=== PATIENT | male | born 1950 | race Caucasian/White ===

== ENCOUNTER 2016-08-08 16:40 | Inpatient (IN) | payer MEDICARE ==
--- NOTE | 2016-08-08 17:02 | ED ---
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 Sousa admitted to be consulted for his other complaints which is mostly pain management according to the patient. He denies any fever no chills no pleuritic chest pain. - Related Data Home Medications Medication Instructions Recorded Confirmed HYDROcodone/APAP 10-325MG [[place] 1 tab PO BID 04/23/15 08/08/16 10-325] Morphine Sulfate [Ms Contin] 60 mg PO BID 08/08/16 08/08/16 Allergies Allergy/AdvReac Type Severity Reaction Status Date / Time No Known Allergies Allergy Verified 08/08/16 17:08 Review of Systems ROS Statement: Those systems with pertinent positive or pertinent negative responses have been documented in the HPI. ROS Other: All systems not noted in ROS Statement are negative. Past Medical History Past Medical History: Coronary Artery Disease (CAD), Hyperlipidemia, Hypertension, Myocardial Infarction ([place]) Additional Past Medical History / Comment(s): Chronic pain issues History of Any Multi-Drug Resistant Organisms: None Reported Past Surgical History: Coronary Bypass/CABG Additional Past Surgical History / Comment(s): pacer/defibrillator Past Psychological History: Depression Smoking Status: Current every day smoker Past Alcohol Use History: None Reported Past Drug Use History: None Reported General Exam - General Exam Comments Initial Comments: General: The patient is awake and alert, in no distress, and does not appear acutely ill. Skin: Skin is warm and dry and no rashes or lesions are noted. Eye: Pupils are equal, round and reactive to light, extra-ocular movements are intact; there is normal conjunctiva bilaterally. Ears, nose, mouth and throat: There are moist mucous membranes and no oral lesions. Neck: The neck is supple, there is no tenderness or JVD. Cardiovascular: There is a regular rate and rhythm. No murmur, rub or gallop is appreciated. Respiratory: To auscultation bilateral, crease breath sounds bilateral Gastrointestinal: Soft, non-distended, non-tender abdomen without masses or organomegaly noted. There is no rebound or guarding present. Bowel sounds are unremarkable. Back: There is no tenderness to palpation in the midline. There is no obvious deformity. Musculoskeletal: Normal ROM, no tenderness, There is no pedal edema. There is no calf tenderness or swelling. No cords were appreciated. Neurological: CN II-XII intact, Cranial nerves III through XII are intact. There are no obvious motor or sensory deficits. Coordination appears grossly intact. Speech is normal. Psychiatric: Cooperative, appropriate mood & affect, normal judgment. Limitations: no limitations Course Vital Signs 08/08/16 16:47 Temperature 98.6 F Pulse Rate 59 L Respiratory 16 Rate Blood Pressure 162/72 O2 Sat by Pulse 99 Oximetry Disposition Clinical Impression: Syncope, Chest pain, Myocardial infarction Disposition: ADMITTED IP TO THIS HOSP Condition: Good
[2016-08-08] MEDS ORDERED: MORPHINE SULFATE 4 MG/ML SYRINGE IV PRN (17:34)
[2016-08-08] MEDS ORDERED: NITROGLYCERIN SL TABS 0.4 MG TAB SUBLINGUAL PRN (17:34)
[2016-08-08] MEDS: HYDROcodone/APAP 10-325MG 1 EACH TAB PO SCH (18:01)
[2016-08-08] MEDS: SODIUM CHLORIDE 0.9% 1,000 ML IV SCH (18:02)
[2016-08-08] MEDS: HEPARIN SODIUM,PORCINE/D5W PMX 25,000 UNIT in DEXTROSE/WATER 1 500ML.BAG IV SCH (18:03)
[2016-08-08 21:48] LABS: Creatine Kinase MB 1.5 ng/mL (0.0-2.4)
[2016-08-08 21:51] LABS: Troponin I 0.079 ng/mL (0.000-0.034)
[2016-08-08] MEDS: MORPHINE SULFATE ER 60 MG TABLET PO SCH (22:22)
[2016-08-09 00:36] VITALS: BMI 24.4
[2016-08-09 01:51] LABS: Creatine Kinase MB 1.5 ng/mL (0.0-2.4)
[2016-08-09 01:52] LABS: Troponin I 0.078 ng/mL (0.000-0.034)
[2016-08-09 07:00] LABS: Cholesterol 158 mg/dL (<200); HDL Cholesterol 51 mg/dL (40-60); Triglycerides 75 mg/dL (<150)
[2016-08-09] MEDS: HEPARIN SODIUM,PORCINE 5,000 UNIT/ML 1 ML VIAL IV PRN (08:13)
[2016-08-09] MEDS: MORPHINE SULFATE ER 60 MG TABLET PO SCH ×2 (08:14→20:35)
[2016-08-09] MEDS: HYDROcodone/APAP 10-325MG 1 EACH TAB PO SCH ×2 (08:14→20:34)
--- NOTE | 2016-08-09 08:37 | CONS ---
DATE OF CONSULTATION: CHIEF COMPLAINT: Dizziness. Kalin is a 66-year-old gentleman with history of coronary artery disease, status post CABG, history of either pacemaker or pacemaker defibrillator, cardiomyopathy who has not been taking any medications and has not had any regular follow-up through our office, comes in to [facility] complaining of shortness of breath and chest discomfort. He has had multiple episodes of syncope and has ecchymosis on his face. His troponin is mildly elevated and EKG showed ST-T wave changes suggestive of ischemia. It is unclear if the patient had ventricular tachycardia, non-ST segment elevation SD that precipitated these symptoms and I do not have any of his old records. Current medications at home include: 1. [place]. 2. Morphine. ALLERGIES: No known drug allergies. FAMILY HISTORY: Negative for premature coronary artery disease. SOCIAL HISTORY: Significant for current smoking. There is no history of ETOH abuse, or drug abuse. REVIEW OF SYSTEMS: HEENT: Unremarkable. CARDIAC: As described above. RESPIRATORY: Negative. GI: Negative. GENITOURINARY: Negative. Allergy/immunology: MUSCULOSKELETAL: Significant for arthritis. PSYCHOSOCIAL: Negative. ENDOCRINE: Negative. DERM: Negative. CONSTITUTIONAL: Negative. CYLINDRICAL MIXER: Negative. Past medical history is significant for CAD, status post CABG, status post possible pacer defibrillator, hypertension, dyslipidemia, patient is lost to follow-up and does not take any medication. On exam, comfortable at rest. Vital signs are stable. There is no jugular venous distention. Carotid upstroke is normal. There is no bruit. Chest exam reveals good air entry bilaterally. Heart exam reveals first and second heart sounds. No gallop. No murmur. Abdomen soft, nontender. Exam of the extremities did not reveal edema. Peripheral pulses are felt. CYLINDRICAL MIXER exam did not reveal focal neurological deficits. Labs show that the LDL cholesterol is 92. Troponins are elevated. Hemoglobin is 14.2, platelet count is 275. Creatinine is normal at 0.79. ASSESSMENT: 1. Syncope, rule out cardiac causes. 2. Non-ST segment elevation myocardial infarction. 3. Coronary artery disease, status post coronary artery bypass grafting. 4. History of defibrillator discharge. PLAN: I am going to review his records from my office. Continue the patient on IV heparin, obtain a 2-D echo to document his LV function. Treat him with aspirin and beta blockers, Coreg 3.125 b.i.d. and ROSA inhibitors like Lisinopril 5 mg daily and if he has a defibrillator we will get it tested. I am going to get hold of his bypass surgery report. At some stage, he needs cardiac catheterization.
[2016-08-09] MEDS: ASPIRIN 325 MG TAB PO SCH (09:35)
[2016-08-09] MEDS: CARVEDILOL 3.125 MG TAB PO SCH ×2 (09:35→16:59)
[2016-08-09] MEDS: LISINOPRIL 5 MG TAB PO SCH (09:35)
[2016-08-09] MEDS ORDERED: ATORVASTATIN 80 MG TAB PO STA (09:46)
[2016-08-09] MEDS ORDERED: NITROGLYCERIN SL TABS 0.4 MG TAB SUBLINGUAL PRN (09:46)
[2016-08-09] MEDS ORDERED: ALPRAZolam 0.5 MG TAB PO PRN (09:46)
[2016-08-09] MEDS ORDERED: ASPIRIN 325 MG TAB PO STA (09:46)
[2016-08-09] MEDS ORDERED: SODIUM CHLORIDE 0.9% 1,000 ML in EMPTY BAG 1 BAG IV ONE (09:46)
[2016-08-09] MEDS ORDERED: DEXTROSE 5% IN WATER 100 ML with AMIODARONE 150 MG IV ONE (11:00)
[2016-08-09] MEDS: AMIODARONE 450 MG in DEXTROSE 5% IN WATER 250 ML IV SCH ×4 (11:56→20:21)
--- NOTE | 2016-08-09 13:25 | ECHOF ---
Referral Reason:chf MEASUREMENTS -------- HEIGHT: 182.9 cm WEIGHT: 83.5 kg BP: 122/60 RVIDd: 4.0 cm (< 3.3) IVSd: 1.2 cm (0.6 - 1.1) LVIDd: 6.3 cm (3.9 - 5.3) LVPWd: 1.0 cm (0.6 - 1.1) IVSs: 1.7 cm LVIDs: 5.0 cm LVPWs: 1.0 cm LA Diam: 4.5 cm (2.7 - 3.8) LAESV Index (A-L): 43.51 ml/m Ao Diam: 3.7 cm (2.0 - 3.7) AV Cusp: 1.5 cm (1.5 - 2.6) LA Diam: 2.9 cm (2.7 - 3.8) MV EXCURSION: 11.323 mm (> 18.000) MV EF SLOPE: 77 mm/s (70 - 150) EPSS: 1.0 cm MV E Marcos: 1.44 m/s MV DecT: 298 ms MV A Marcos: 0.79 m/s MV E/A Ratio: 1.83 RAP: 5.00 mmHg RVSP: 37.95 mmHg FINDINGS -------- Paced rhythm. Pacerwire seen in RV and RA. This was a technically good study. The left ventricle is mildly dilated. There is borderline concentric left ventricular hypertrophy. Overall left ventricular systolic function is mild-moderately impaired with, an EF between 40 - 45 %. Basal inferior LV wall motion is hypokinetic. Basal inferoseptal LV wall motion is dyskinetic. The right ventricle is severely enlarged. LA is severely dilated >40 ml/m2 RA appears enlarged. Aortic valve is trileaflet and is mildly thickened. The mitral valve leaflets are mildly thickened. Mild mitral annular calcification present. Mpgdvsmt-[id number]-phejua mitral regurgitation is present. Mild tricuspid regurgitation present. There is mild pulmonary hypertension. The right ventricular systolic pressure, as measured by Doppler, is 37.95mmHg. Pulmonic valve appears structurally normal. The aortic root size is normal. Normal inferior vena cava with normal inspiratory collapse consistent with estimated right atrial pressure of 5 mmHg. There is no pericardial effusion. CONCLUSIONS -------- 1. Paced rhythm. 2. LA is severely dilated >40 ml/m2 3. RA appears enlarged. 4. Aortic valve is trileaflet and is mildly thickened. 5. The mitral valve leaflets are mildly thickened. 6. Mild mitral annular calcification present. 7. Pyebmcrv-on-vtycgx mitral regurgitation is present. 8. Mild tricuspid regurgitation present. 9. There is mild pulmonary hypertension. 10. The right ventricular systolic pressure, as measured by Doppler, is 37.95mmHg. 11. Pulmonic valve appears structurally normal. 12. Pacerwire seen in RV and RA. 13. The aortic root size is normal. 14. There is no pericardial effusion. 15. This was a technically good study. 16. The left ventricle is mildly dilated. 17. There is borderline concentric left ventricular hypertrophy. 18. Overall left ventricular systolic function is mild-moderately impaired with, an EF between 40 - 45 %. 19. Basal inferior LV wall motion is hypokinetic. 20. Basal inferoseptal LV wall motion is dyskinetic. 21. The right ventricle is severely enlarged. [employer] SUPERVISOR: Stu Peralta RDCS
[2016-08-09] MEDS: HEPARIN SODIUM,PORCINE/D5W PMX 25,000 UNIT in DEXTROSE/WATER 1 500ML.BAG IV SCH (14:10)
--- NOTE | 2016-08-09 15:29 | P.PN ---
Subjective 66-year-old being seen on rounds. Currently resting in bed. Being seen with the attending this morning. Patient presented to the emergency room with a chief complaint of developing shortness of breath and chest discomfort. Patient had mild elevated troponin and EKG suggestive of ischemia. There are no prior records. Cardiology consultation has been requested patient's been seen by cardiology service recommendations are to continue with IV heparin follow-up on an echocardiogram done at some stage per cardiology may need a heart catheterization The echocardiogram showed left ventricular systolic function mild to moderately impaired with an EF between 40 and 45%. No pulmonary hypertension. Objective - Vital Signs Vital signs: Vital Signs Temp 98.1 F 08/09/16 11:48 Pulse 50 L 08/09/16 15:08 Resp 16 08/09/16 11:48 BP 122/58 08/09/16 15:08 Pulse Ox 96 08/09/16 11:48 Intake & Output 08/08/16 08/09/16 08/09/16 18:59 06:59 18:59 Intake Total 4511.617 1325.461 Output Total 350 Balance 257.542 3952.461 Weight 83.6 kg Intake: IV 969.1 Amiodarone 450 mg In 350 Dextrose 5% in Water 250 ml @ 1 MG/MIN 34.53 mls/ hr IV .Q7H31M TRAY Rx#: [id number] Heparin Sodium,Porcine/ 238 D5w Pmx 25,000 unit In Dextrose/Water 1 500ml. bag @ 12 UNITS/KG/HR 19. 59 mls/hr IV .Q24H TRAY Rx #:[id number] Invasive Line 1 251.1 Sodium Chloride 0.9% 1, 130 000 ml @ 20 mls/hr IV . Q24H TRAY Rx#:[id number] Intake, IV Titration 148.884 335.361 Amount Heparin Sodium,Porcine/ 148.884 335.361 D5w Pmx 25,000 unit In Dextrose/Water 1 500ml. bag @ 12 UNITS/KG/HR 19. 59 mls/hr IV .Q24H TRAY Rx #:[id number] Oral 1200 120 Output: Urine 350 Other: Voiding Method Toilet # Voids 1 2 # Bowel Movements 0 - Exam Physical exam 66-year-old male sitting up in bed does not appear in any acute distress Lungs essentially clear adequate air movement Heart S1-S2 audible and regular denying chest pain Abdomen soft nontender Extremities No evidence of edema to the lower extremities - Labs Labs: Abnormal Lab Results - Last 24 Hours (Table) 08/08/16 08/09/16 08/09/16 Range/Units 19:53 00:58 00:58 APTT 31.5 H (22.0-30.0) sec Total Creatine Kinase 33 L 34 L (55-170) U/L Troponin I 0.079 H* 0.078 H* (0.000-0.034) ng/mL 08/09/16 08/09/16 Range/Units 06:21 14:12 APTT 36.3 H 61.5 H (22.0-30.0) sec Total Creatine Kinase (55-170) U/L Troponin I (0.000-0.034) ng/mL Assessment and Plan Plan: Impression Present on admission syncopal episode unclear etiology rule out cardiac causes Present on admission mildly elevated troponin likely due to a non-ST elevated [place] Known coronary artery disease with prior coronary artery bypass grafting Chronic systolic congestive heart failure compensated no exacerbation Known ICD Present on admission sinus bradycardia resolving Depression nonspecified Current every day smoker greater than a 20 year history Plan Resume home meds as appropriate Continue recommendations by cardiology continue IV heparin Continue ROSA inhibitor beta nisha and aspirin Continue amiodarone as ordered DVT and GI prophylaxis Further recommendations pending The above dictated assessment and findings were discussed with Dr. Rey. Impression and the plan of care have been dictated as directed. Yvonne Alvarez nurse practitioner acting as a scribe for Dr. Rey
[2016-08-09] MEDS: FAMOTIDINE 20 MG TAB PO SCH (16:59)
[2016-08-09] MEDS: SODIUM CHLORIDE 0.9% 1,000 ML IV SCH (17:04)
[2016-08-09] MEDS: ALPRAZolam 0.25 MG TAB PO PRN (20:35)
[2016-08-10] MEDS: AMIODARONE 450 MG in DEXTROSE 5% IN WATER 250 ML IV SCH ×4 (02:32→12:18)
[2016-08-10 06:15] LABS: Basophils % (A) 1 %; CH 32.8; CHCM 33.8; Eosinophils # (A) 0.2 k/uL (0-0.7); Eosinophils % (A) 3 %; HCT 37.7 % (39.0-53.0); HDW 2.61; HGB 12.8 gm/dL (13.0-17.5); Luc # (Auto) 0.18; Luc % (Auto) 3; Lymphocytes # (A) 2.2 k/uL (1.0-4.8); Lymphocytes % (A) 30 %; MCV 97.2 fL (80.0-100.0); Mean Platelet Volume 7.1; Monocytes # (A) 0.5 k/uL (0-1.0); Monocytes % (A) 7 %; Neutrophils # (A) 4.1 k/uL (1.3-7.7); Neutrophils % (A) 57 %; RBC 3.88 m/uL (4.30-5.90); RDW 12.5 % (11.5-15.5); WBC 7.2 k/uL (3.8-10.6); WBC (Perox) 7.73
[2016-08-10 06:33] LABS: Glucose 100 mg/dL (74-99)
[2016-08-10 06:34] LABS: ALT 33 U/L (21-72); AST 16 U/L (17-59); Alkaline Phosphatase 47 U/L (38-126); Blood Urea Nitrogen 17 mg/dL (9-20); Calcium 8.8 mg/dL (8.4-10.2); Carbon Dioxide 23 mmol/L (22-30); Non-African American GFR(MDRD) >60 (>60 ml/min/1.73 sqM); Sodium 142 mmol/L (137-145); Total Bilirubin 0.5 mg/dL (0.2-1.3)
[2016-08-10 07:44] LABS: Anion Gap 8 mmol/L; Chloride 111 mmol/L (98-107)
[2016-08-10] MEDS: HYDROcodone/APAP 10-325MG 1 EACH TAB PO SCH ×2 (07:54→20:43)
[2016-08-10] MEDS: MORPHINE SULFATE ER 60 MG TABLET PO SCH ×2 (07:55→20:43)
[2016-08-10] MEDS: LISINOPRIL 5 MG TAB PO SCH (07:56)
[2016-08-10] MEDS: FAMOTIDINE 20 MG TAB PO SCH (07:56)
[2016-08-10] MEDS: CARVEDILOL 3.125 MG TAB PO SCH ×2 (07:56→17:53)
[2016-08-10] MEDS: ASPIRIN 325 MG TAB PO SCH (07:56)
[2016-08-10] MEDS: HEPARIN SODIUM,PORCINE/D5W PMX 25,000 UNIT in DEXTROSE/WATER 1 500ML.BAG IV SCH (07:57)
[2016-08-10] MEDS ORDERED: ASPIRIN 325 MG TAB PO STA (10:43)
[2016-08-10] MEDS ORDERED: ATORVASTATIN 80 MG TAB PO STA (10:43)
[2016-08-10] MEDS ORDERED: ALPRAZolam 0.5 MG TAB PO PRN (10:43)
[2016-08-10] MEDS ORDERED: ALPRAZolam 0.25 MG TAB PO PRN (10:43)
[2016-08-10] MEDS ORDERED: SODIUM CHLORIDE 0.9% 1,000 ML in EMPTY BAG 1 BAG IV ONE (10:43)
[2016-08-10] MEDS ORDERED: NITROGLYCERIN SL TABS 0.4 MG TAB SUBLINGUAL PRN (10:43)
--- NOTE | 2016-08-10 10:43 | P.PN ---
Subjective Principal diagnosis: Syncope This is a 66-year-old gentleman with known history of coronary artery disease and prior bypass surgery, prior implantation of AICD, hypertension, hyperlipidemia, who had not followed in quite sometime with cardiology in the office. He presented to the hospital having several episodes of syncope. His device was interrogated yesterday which revealed multiple appropriate shocks for ventricular fibrillation, patient also had several episodes of ventricular tachycardia noted. His device is also at [facility]. He was initiated yesterday on IV amiodarone, he has had no further episodes of ventricular tachycardia or arrhythmia. Echo cardiogram with Doppler study was performed which revealed an ejection fraction of 40-45% with basal inferior septal hypokinesia. Right ventricle was severely enlarged. Patient was also noted to have moderate to severe mitral regurgitation. Blood pressure this morning 138/60 with a heart rate in the 50s. Hemoglobin of 12.8, potassium 4.0, creatinine 0.8. Overall patient states he feels well this morning, no dizziness or lightheadedness. No palpitations. He does complain of pain in his right groin, scrotal and lower back area which he states is chronic. In view of the abnormal troponins, V. fib and V. tach, known history of prior coronary artery disease, patient has been advised to undergo cardiac catheterization by Dr. Hernandez. The risks and the benefits were explained to the patient in detail, this will be performed on Friday by Dr. Hernandez. At some point patient will require a generator change for his AICD, but this will be done at a later date. Objective - Vital Signs Vital signs: Vital Signs Temp 97.3 F L 08/10/16 08:00 Pulse 50 L 08/10/16 08:00 Resp 16 08/10/16 08:00 BP 138/69 08/10/16 08:00 Pulse Ox 96 08/10/16 08:00 Intake & Output 08/09/16 08/10/16 08/10/16 18:59 06:59 18:59 Intake Total 1664.461 587.724 958 Output Total 300 675 Balance 1364.461 -87.276 958 Weight 84.1 kg Intake: IV 969.1 222 222 Amiodarone 450 mg In 350 102 102 Dextrose 5% in Water 250 ml @ 1 MG/MIN 34.53 mls/ hr IV .Q7H31M TRAY Rx#: [id number] Heparin Sodium,Porcine/ 238 D5w Pmx 25,000 unit In Dextrose/Water 1 500ml. bag @ 12 UNITS/KG/HR 19. 59 mls/hr IV .Q24H TRAY Rx #:[id number] Invasive Line 1 251.1 Sodium Chloride 0.9% 1, 130 120 120 000 ml @ 20 mls/hr IV . Q24H TRAY Rx#:[id number] Intake, IV Titration 335.361 365.724 500 Amount Amiodarone 450 mg In 365.724 Dextrose 5% in Water 250 ml @ 1 MG/MIN 34.53 mls/ hr IV .Q7H31M TRAY Rx#: [id number] Heparin Sodium,Porcine/ 335.361 500 D5w Pmx 25,000 unit In Dextrose/Water 1 500ml. bag @ 12 UNITS/KG/HR 19. 59 mls/hr IV .Q24H TRAY Rx #:[id number] Oral 360 0 236 Output: Urine 300 675 Other: Voiding Method Toilet Urinal # Voids 1 # Bowel Movements 0 - Exam PHYSICAL EXAMINATION: HEENT: Head is atraumatic, normocephalic. Pupils equal, round. Neck is supple. There is no elevated jugular venous pressure. Ecchymosis noted above the right eye HEART EXAMINATION: S1 and S2 systolic murmur is heard. CHEST EXAMINATION: Lungs are clear to auscultation and precussion. No chest wall tenderness is noted on palpation or with deep breathing. ABDOMEN: Soft, nontender. Bowel sounds are heard. No organomegaly noted. EXTREMITIES: 2+ peripheral pulses with no evidence of peripheral edema and no calf tenderness noted. NEUROLOGIC patient is awake, alert and oriented -3. . - Labs CBC & Chem 7: 08/10/16 05:52 08/10/16 05:52 Labs: Abnormal Lab Results - Last 24 Hours (Table) 08/09/16 08/10/16 08/10/16 Range/Units 14:12 05:52 05:52 RBC (4.30-5.90) m/uL Hgb (13.0-17.5) gm/dL Hct (39.0-53.0) % APTT 61.5 H 51.4 H (22.0-30.0) sec Chloride 111 H (98-107) mmol/L Glucose 100 H (74-99) mg/dL AST 16 L (17-59) U/L Total Protein 6.0 L (6.3-8.2) g/dL Albumin 3.4 L (3.5-5.0) g/dL 08/10/16 Range/Units 05:52 RBC 3.88 L (4.30-5.90) m/uL Hgb 12.8 L (13.0-17.5) gm/dL Hct 37.7 L (39.0-53.0) % APTT (22.0-30.0) sec Chloride (98-107) mmol/L Glucose (74-99) mg/dL AST (17-59) U/L Total Protein (6.3-8.2) g/dL Albumin (3.5-5.0) g/dL Assessment and Plan (1) NSTEMI (non-ST elevated myocardial infarction) Status: Acute (2) Ventricular fibrillation Status: Acute (3) Ventricular tachycardia Status: Acute (4) Hx of CABG Status: Acute (5) AICD discharge Status: Acute (6) HTN (hypertension) Status: Acute (7) Hyperlipemia Status: Acute (8) Syncope Status: Acute Plan: Cardiology's perspective, we will continue IV amiodarone until the bag is finished, then we will change management lead to oral amiodarone. Decrease aspirin to 81 mg daily. Continue Lipitor, Coreg, lisinopril. Continue IV heparin for 24 hours. Patient will be scheduled to undergo cardiac catheterization on Friday by Dr. Hernandez. Further recommendations will follow. DNP note has been reviewed, I agree with a documented findings and plan of care. Patient was seen and examined.
[2016-08-10] MEDS: SODIUM CHLORIDE 0.9% 1,000 ML IV SCH (12:20)
--- NOTE | 2016-08-10 16:39 | P.CNNES ---
History of Present Illness Consult date: 08/10/16 Reason for Consult: Patient admitted with syncope and chronic pain syndrome. History of Present Illness: This patient is a 66-year-old right-handed white male who apparently was admitted to the hospital yesterday after having episode of syncope. Patient has a history of prior implantation of AICD device and is being evaluated by cardiology. He is scheduled to undergo a cardiac catheterization on Friday. Patient has a long-standing history of chronic pain syndrome. He is been followed in the outpatient pain clinic with Dr. Patel. He states that he has undergone various injections to multiple back sites due to his severe neck pain. In 2011 he underwent a nerve stimulator placement into his back which failed. This was removed. Patient currently states he has severe pain around the clock. He is on various pain medications. These have been prescribed by Dr. Patel. He is currently taking morphine and Dilaudid. Since his nerve stimulator placement he has been having chronic pain daily. The pain level is just manageable and can get quite severe. The pain is mostly on his right side and involves both of his hip joints as well as radiating down into the right groin and scrotal area. Pain starts up high in the thoracic and lumbar region and radiates downwards. The patient has tried various pain medications over the years including Neurontin, Cymbalta, Lyrica, and multiple other medications all of which have failed. He may be a candidate for a intrathecal pump for pain control. We've suggested he be evaluated for this. He also complains of severe bilateral hip pain and apparently was told on MRI that he needs hip replacements. We recommended for him to be seen by orthopedic surgery for further evaluation. The patient most likely was having syncopal episodes secondary to his cardiac status. As noted he is scheduled for cardiac catheterization on Friday and we will await further recommendations from cardiology. Neurology is now been consulted for further evaluation and recommendations. Review of Systems Constitutional: Denies chills, Denies fever Eyes: denies blurred vision, denies pain Ears, nose, mouth and throat: Denies headache, Denies sore throat Cardiovascular: Denies chest pain, Denies shortness of breath Respiratory: Denies cough Gastrointestinal: Denies abdominal pain, Denies diarrhea, Denies nausea, Denies vomiting Musculoskeletal: Denies myalgias Integumentary: Denies pruritus, Denies rash Neurological: Denies numbness, Denies weakness Psychiatric: Denies anxiety, Denies depression Endocrine: Denies fatigue, Denies weight change Past Medical History Past Medical History: Coronary Artery Disease (CAD), Hyperlipidemia, Hypertension, Myocardial Infarction ([place]) Additional Past Medical History / Comment(s): Chronic pain issues Last Myocardial Infarction Date:: 1989 History of Any Multi-Drug Resistant Organisms: None Reported Past Surgical History: Coronary Bypass/CABG, Hernia Repair, Pacemaker Additional Past Surgical History / Comment(s): pacer/defibrillator Past Anesthesia/Blood Transfusion Reactions: No Reported Reaction Type of Cardiac Device: Permanent Pacemaker Device Placement Date:: 2011 Past Psychological History: Depression Smoking Status: Current every day smoker Past Alcohol Use History: None Reported Past Drug Use History: None Reported - Past Family History Father Family Medical History: Unable to Obtain Mother Family Medical History: Unable to Obtain Medications and Allergies Home Medications Medication Instructions Recorded Confirmed Type HYDROcodone/APAP 10-325MG [[place] 1 tab PO BID 04/23/15 08/08/16 History 10-325] Morphine Sulfate [Ms Contin] 60 mg PO BID 08/08/16 08/08/16 History Allergies Allergy/AdvReac Type Severity Reaction Status Date / Time No Known Allergies Allergy Verified 08/08/16 17:08 Physical Examination - Vital Signs Vital Signs: Vital Signs Temp Pulse Resp BP Pulse Ox 08/10/16 16:00 97.8 F 50 L 16 121/58 96 08/10/16 11:20 97.5 F L 50 L 16 109/56 94 L 08/10/16 08:00 97.3 F L 50 L 16 138/69 96 08/10/16 04:00 97.3 F L 51 L 16 131/64 98 08/10/16 00:00 97.3 F L 50 L 16 130/63 95 08/09/16 20:20 97.8 F 50 L 18 116/59 97 Intake and Output 08/10/16 08/10/16 08/10/16 06:59 14:59 22:59 Intake Total 605.658 2618 50 Output Total 675 300 500 Balance -346.276 758 -450 Intake: IV 222 322 50 Amiodarone 450 mg In 102 202 Dextrose 5% in Water 250 ml @ 1 MG/MIN 34.53 mls/ hr IV .Q7H31M [facility] Rx#: [id number] Sodium Chloride 0.9% 1, 120 120 50 000 ml @ 20 mls/hr IV . Q24H [facility] Rx#:[id number] Intake, IV Titration 106.724 500 Amount Amiodarone 450 mg In 106.724 Dextrose 5% in Water 250 ml @ 1 MG/MIN 34.53 mls/ hr IV .Q7H31M [facility] Rx#: [id number] Heparin Sodium,Porcine/ 500 D5w Pmx 25,000 unit In Dextrose/Water 1 500ml. bag @ 12 UNITS/KG/HR 19. 59 mls/hr IV .Q24H [facility] Rx #:[id number] Oral 0 236 Output: Urine 675 300 500 Other: Voiding Method Toilet Urinal Weight 84.1 kg - Constitutional General appearance: average body habitus, cooperative - EENT EENT: PERRL, mucous membranes moist - Respiratory Respiratory: lungs clear, normal breath sounds - Cardiovascular Cardiovascular: regular rate, normal S1, normal S2 Extremities: no peripheral edema bilaterally - Gastrointestinal Gastrointestinal: normoactive bowel sounds - Integumentary Integumentary: normal - Neurologic Cranial nerve examination: PERRL, EOMI, V1/V2/V3 grossly intact, face symmetric , intact gag reflex, intact corneal reflex, normal palatal elevation Speech examination: intact Sensorimotor examination: intact Motor examination - right side: 3/5: knee extensors, dorsiflexion, toe extension (EHL), plantarflexion, 4/5: hip flexors, 5/5: biceps, triceps, wrist flexion, wrist extension, respiratory therapist assistant Motor examination - left side: 5/5: biceps, triceps, wrist flexion, wrist extension, respiratory therapist assistant, hip flexors, knee extensors, dorsiflexion, toe extension (EHL) , plantarflexion Detailed sensory examination: intact Reflex and gait examination: intact Reflexes: 1+: ankle, bicep, knee, tricep - Musculoskeletal Musculoskeletal: decreased range of motion - Psychiatric Psychiatric: mood/affect appropriate, cooperative Results - Laboratory Findings CBC and BMP: 08/10/16 05:52 08/10/16 05:52 Abnormal Lab Findings: Abnormal Labs 08/08/16 08/09/16 08/09/16 19:53 00:58 00:58 RBC Hgb Hct APTT 31.5 H Chloride Glucose AST Total Creatine Kinase 33 L 34 L Troponin I 0.079 H* 0.078 H* Total Protein Albumin 08/09/16 08/09/16 08/10/16 06:21 14:12 05:52 RBC Hgb Hct APTT 36.3 H 61.5 H 51.4 H Chloride Glucose AST Total Creatine Kinase Troponin I Total Protein Albumin 08/10/16 08/10/16 05:52 05:52 RBC 3.88 L Hgb 12.8 L Hct 37.7 L APTT Chloride 111 H Glucose 100 H AST 16 L Total Creatine Kinase Troponin I Total Protein 6.0 L Albumin 3.4 L Assessment and Plan (1) NSTEMI (non-ST elevated myocardial infarction) Status: Acute Code(s): I21.4 - NON-ST ELEVATION (NSTEMI) MYOCARDIAL INFARCTION (2) Syncope Status: Acute Code(s): R55 - SYNCOPE AND COLLAPSE (3) Complex regional pain syndrome Status: Acute Code(s): G90.50 - COMPLEX REGIONAL PAIN SYNDROME I, UNSPECIFIED (4) Bilateral hip pain Status: Acute Code(s): M25.551 - PAIN IN RIGHT HIP; M25.552 - PAIN IN LEFT HIP Plan: This patient is a 66-year-old male who was admitted to hospital for syncope and episodes of ventricular tachycardia. Patient is scheduled to undergo cardiac catheterization due to these findings today. Neurology was consulted for further evaluation of chronic pain syndrome. Patient underwent placement of a nerve stimulator to his back in 2011. Following this procedure he is had chronic pain mostly radiating down his right side. He has findings of chronic regional pain syndrome. He has been treated with multiple injections over the last several years. Nothing has been of help he is tried multiple medications all of which have also failed. He is currently on morphine for treatment. His chronic pain is throughout the day. He does have some difficulty with ambulation over time due to the right-sided pain symptoms. We have recommended that he be evaluated by the pain clinic for possible evaluation of intrathecal pump placement for pain medication. Would also recommend orthopedic consultation for evaluation of bilateral hip pain and need for orthopedic surgery. We have discussed all of these findings today with the patient in detail. We will continue to monitor his progress closely during this admission. His overall prognosis remains guarded. Time with Patient: Greater than 30
--- NOTE | 2016-08-10 18:53 | XR ---
EXAMINATION TYPE: XR Hip Bilateral and AP pelvis DATE OF EXAM: 08/10/2016 6:39 PM COMPARISON: NONE HISTORY: Bilateral hip pain TECHNIQUE: 5 views FINDINGS: Pelvic ring is intact. There is narrowing of hip joint spaces with acetabular spurring. There is spur ring on the femoral heads. Sacroiliac joints are normal. There is atherosclerotic vascular calcificat ion. CONCLUSION: Hypertrophic osteoarthritis. Hip joint space narrowing. No fracture.
[2016-08-10] MEDS: AMIODARONE 200 MG TAB PO SCH (20:43)
[2016-08-10] MEDS: ALPRAZolam 0.25 MG TAB PO PRN (20:43)
[2016-08-11] MEDS: HEPARIN SODIUM,PORCINE/D5W PMX 25,000 UNIT in DEXTROSE/WATER 1 500ML.BAG IV SCH (00:20)
[2016-08-11] MEDS: CARVEDILOL 3.125 MG TAB PO SCH ×2 (06:47→17:11)
[2016-08-11 07:18] LABS: Basophils # (A) 0.1 k/uL (0-0.2); Basophils % (A) 1 %; CH 32.7; CHCM 33.7; Eosinophils # (A) 0.3 k/uL (0-0.7); Eosinophils % (A) 3 %; HCT 41.8 % (39.0-53.0); HGB 13.5 gm/dL (13.0-17.5); Luc # (Auto) 0.18; Luc % (Auto) 2; Lymphocytes % (A) 29 %; MCH 31.6 pg (25.0-35.0); MCHC 32.4 g/dL (31.0-37.0); MCV 97.4 fL (80.0-100.0); Mean Platelet Volume 7.3; Monocytes # (A) 0.7 k/uL (0-1.0); Monocytes % (A) 6 %; Neutrophils # (A) 6.2 k/uL (1.3-7.7); Neutrophils % (A) 60 %; RBC 4.29 m/uL (4.30-5.90); RDW 12.5 % (11.5-15.5); WBC 10.3 k/uL (3.8-10.6); WBC (Perox) 10.49
[2016-08-11 07:33] LABS: ALT 32 U/L (21-72); AST 16 U/L (17-59); Alkaline Phosphatase 61 U/L (38-126); Anion Gap 12 mmol/L; Blood Urea Nitrogen 17 mg/dL (9-20); Calcium 9.2 mg/dL (8.4-10.2); Carbon Dioxide 24 mmol/L (22-30); Chloride 108 mmol/L (98-107); Glucose 100 mg/dL (74-99); Non-African American GFR(MDRD) >60 (>60 ml/min/1.73 sqM); Sodium 144 mmol/L (137-145); Total Bilirubin 0.5 mg/dL (0.2-1.3); Total Protein 6.7 g/dL (6.3-8.2)
[2016-08-11] MEDS: MORPHINE SULFATE ER 60 MG TABLET PO SCH ×2 (08:16→20:45)
[2016-08-11] MEDS: ASPIRIN 81 MG CHEW PO SCH (08:17)
[2016-08-11] MEDS: AMIODARONE 200 MG TAB PO SCH ×2 (08:17→20:44)
[2016-08-11] MEDS: HYDROcodone/APAP 10-325MG 1 EACH TAB PO SCH ×2 (08:17→20:45)
[2016-08-11] MEDS: FAMOTIDINE 20 MG TAB PO SCH (08:17)
[2016-08-11] MEDS: LISINOPRIL 5 MG TAB PO SCH (08:17)
[2016-08-11] MEDS: HEPARIN SODIUM,PORCINE 5,000 UNIT/ML 1 ML VIAL IV PRN (08:18)
--- NOTE | 2016-08-11 10:34 | P.CNOR ---
History of Present Illness - HPI Consult date: 08/11/16 History of present illness: This is a 66-year-old gentleman who presented to [facility] complaining of shortness of breath and chest discomfort. Patient apparently has had some syncopal episodes as well. Cardiology is currently planning catheterization on Friday. Patient had been complaining of hip pain and subsequently we were consulted. The patient is seen and evaluated at bedside this morning. He states that he has history of long-standing chronic pain syndrome and has followed in the outpatient setting with Dr. Patel. He is underwent multiple injections. He apparently had a temporary nerve stimulator placed in his back which provided improvement. This was followed by a permanent nerve stimulator which she relates to worsening pain. He states that this was performed approximately 2 years ago and was removed 1 year ago. He currently complains mostly of pain in the right side of his chest and abdomen. He states that the pain radiates down from his shoulder into his groin and scrotum. He states at some point he was told that he would likely require hip replacements in the future. At the time my evaluation he complains mostly of right-sided chest pain and abdominal pain extending under his rib cage. He states that he has some history of hernia repair with mesh placement and he is concerned that this may be related to some of his pain issues. In regards to his hips, he denies difficulty putting on his shoes and socks. He 's not had any fall or trauma to the hips. He otherwise denies any fevers, chills, nausea, vomiting. He did have some syncopal episodes prior to admission and some shortness of breath. Review of Systems See HPI. Past Medical History Past Medical History: Coronary Artery Disease (CAD), Hyperlipidemia, Hypertension, Myocardial Infarction ([place]) Additional Past Medical History / Comment(s): Chronic pain issues Last Myocardial Infarction Date:: 1989 History of Any Multi-Drug Resistant Organisms: None Reported Past Surgical History: Coronary Bypass/CABG, Hernia Repair, Pacemaker Additional Past Surgical History / Comment(s): pacer/defibrillator Past Anesthesia/Blood Transfusion Reactions: No Reported Reaction Type of Cardiac Device: Permanent Pacemaker Device Placement Date:: 2011 Past Psychological History: Depression Smoking Status: Current every day smoker Past Alcohol Use History: None Reported Past Drug Use History: None Reported - Past Family History Father Family Medical History: Unable to Obtain Mother Family Medical History: Unable to Obtain Medications and Allergies Home Medications Medication Instructions Recorded Confirmed Type HYDROcodone/APAP 10-325MG [[place] 1 tab PO BID 04/23/15 08/08/16 History 10-325] Morphine Sulfate [Ms Contin] 60 mg PO BID 08/08/16 08/08/16 History Allergies Allergy/AdvReac Type Severity Reaction Status Date / Time No Known Allergies Allergy Verified 08/08/16 17:08 Physical Examination On examination the patient does not appear in acute distress. He is alert and orientated 3. He is pleasant and answers questions appropriately. Head normocephalic atraumatic Neck is supple Breathing appears nonlabored Abdomen is soft. He does complain of vague tenderness to palpation worsen the right upper quadrant. Upon examination of his lower extremities is no obvious leg length discrepancy. No malrotation. He is able to lift each leg up off the bed independently. He is able to perform active hip flexion. Active range of motion of his knee was within normal limits bilaterally. He denies hip irritability with internal/ external rotation of his left hip. Flexion of the left hip with passive motion is 100. Internal rotation to 5. External rotation 20. On exam of his right hip he denies pain with flexion to approximately 100. Internal rotation to only about 5 which is somewhat painful. External rotation to approximately 20. Calves are soft and nontender. His good foot and ankle motion. Sensation and circulatory status is intact. Results X-rays obtained of bilateral hips and pelvis are reviewed. There is joint space narrowing and hypertrophic changes. No Fracture or dislocation. - Labs Labs: Abnormal Lab Results - Last 24 Hours (Table) 08/11/16 08/11/16 08/11/16 Range/Units 06:17 06:17 06:17 RBC 4.29 L (4.30-5.90) m/uL APTT 45.4 H (22.0-30.0) sec Chloride 108 H (98-107) mmol/L Glucose 100 H (74-99) mg/dL AST 16 L (17-59) U/L H & H 08/10/16 08/11/16 Range/Units 05:52 06:17 Hgb 12.8 L 13.5 (13.0-17.5) gm/dL Hct 37.7 L 41.8 (39.0-53.0) % Result Diagrams: 08/11/16 06:17 08/11/16 06:17 Assessment and Plan (1) Bilateral hip pain Status: Acute (2) Primary localized osteoarthritis of hips, bilateral Status: Acute Plan: I reviewed the patient's clinical and x-ray findings with him at bedside today. The patient has history of chronic pain syndrome. He is scheduled for cardiac catheterization on Friday as well. At the time my evaluation the patient is complaining mostly of pain in his right sided abdomen and chest. He does complain of pain into his right groin and scrotum. He does not have much irritability on exam of the hips. His x-ray findings are consistent with osteoarthritis of his bilateral hips and further discussion and evaluation of his hips may be performed in the outpatient setting. No surgical intervention is planned during this admission. Due to the patient's complaints of vague right-sided chest pain and abdominal pain, the patient may benefit consultation with general surgery. This was discussed with the patient's nurse. Thank you for this consult. Please feel free to consult us with any questions or concerns.
--- NOTE | 2016-08-11 12:28 | PN ---
A 66-year-old gentleman who is admitted to hospital with syncope, ventricular tachycardia, non-ST segment elevation [place]. He is feeling much better now and will undergo cardiac catheterization tomorrow. His predominant symptom at the moment is musculoskeletal pain. On exam, comfortable at rest. Vital signs are stable. There is no jugular venous distention. Chest exam reveals good air entry bilaterally. Heart exam reveals first and second heart sounds. No gallop. Abdomen is soft, nontender. Exam of extremities did not reveal edema. Peripheral pulses are felt. The patient is on aspirin, Cordarone, Lipitor, Coreg, intravenous heparin. He is scheduled for a cardiac catheterization in the morning. Echocardiogram shows moderate LV systolic dysfunction. Labs show a hemoglobin of 13.5. Creatinine is 0.9. ASSESSMENT: Non-ST segment elevation myocardial infarction, ventricular tachycardia status post AICD discharge. PLAN: Patient will undergo cardiac catheterization tomorrow.
--- NOTE | 2016-08-11 13:06 | P.PN ---
Subjective This patient is a 66-year-old male who was seen in neurology consultation yesterday for chronic pain. Patient was complaining of mostly right-sided hip and lower pelvic pain. He was sent for x-rays of the hip and pelvis yesterday for further assessment. He was seen by orthopedic surgery today and they're consultation note is appreciated. Patient does have evidence of osteoarthritis in both hips which will be worked up as outpatient. He does not require any immediate surgical intervention. They're recommending possible general surgery consultation due to his right-sided chest pain and abdominal pain. He does have history of some type of mesh placement into the abdominal area in the past. Patient is also to be seen by pain management for further adjustment of his pain medications. He may require further intervention with intrathecal pump placement. We will await further recommendations from pain management. The patient was seen by cardiology today. He is being followed for a non-ST segment elevation myocardial infarction. He is scheduled to undergo a cardiac catheterization tomorrow. Neurologically there is no change in his findings today. We will continue to follow his progress closely. Objective - Vital Signs Vital signs: Vital Signs Temp 97.1 F L 08/11/16 08:00 Pulse 50 L 08/11/16 08:00 Resp 18 08/11/16 08:00 BP 120/58 08/11/16 08:00 Pulse Ox 97 08/11/16 08:00 Intake & Output 08/10/16 08/11/16 08/11/16 18:59 06:59 18:59 Intake Total 1108 1171.506 470.14 Output Total 800 1500 Balance 308 -328.494 470.14 Intake: IV 372 240 Amiodarone 450 mg In 202 Dextrose 5% in Water 250 ml @ 1 MG/MIN 34.53 mls/ hr IV .Q7H31M [facility] Rx#: [id number] Sodium Chloride 0.9% 1, 170 240 000 ml @ 20 mls/hr IV . Q24H [facility] Rx#:[id number] Intake, IV Titration 500 481.506 234.14 Amount Heparin Sodium,Porcine/ 500 481.506 234.14 D5w Pmx 25,000 unit In Dextrose/Water 1 500ml. bag @ 12 UNITS/KG/HR 19. 59 mls/hr IV .Q24H [facility] Rx #:[id number] Oral 236 450 236 Output: Urine 800 1500 Other: Voiding Method Urinal - Exam Physical examination: PHYSICAL EXAMINATION: Patient is resting comfortably in bed. VITAL SIGNS: Blood pressure is [120/58]. Heart rate is [50]. Respiration is [18] . Temperature is [97.1]. HEENT: Head is atraumatic, neck is supple, there were no carotid bruits. CHEST: Lungs are clear to auscultation and percussion. CARDIAC: S1, S2 normal rate and rhythm. There is no murmur. ABDOMEN: Soft and nontender. Bowel sounds are present. EXTREMITIES: There is no pedal edema. Peripheral pulses are present. Neurological examination: Neurological examination is unchanged from yesterday. - Labs CBC & Chem 7: 08/11/16 06:17 08/11/16 06:17 Labs: Abnormal Lab Results - Last 24 Hours (Table) 08/11/16 08/11/16 08/11/16 Range/Units 06:17 06:17 06:17 RBC 4.29 L (4.30-5.90) m/uL APTT 45.4 H (22.0-30.0) sec Chloride 108 H (98-107) mmol/L Glucose 100 H (74-99) mg/dL AST 16 L (17-59) U/L Assessment and Plan (1) NSTEMI (non-ST elevated myocardial infarction) Status: Acute Code(s): I21.4 - NON-ST ELEVATION (NSTEMI) MYOCARDIAL INFARCTION (2) Syncope Status: Acute Code(s): R55 - SYNCOPE AND COLLAPSE (3) Complex regional pain syndrome Status: Acute Code(s): G90.50 - COMPLEX REGIONAL PAIN SYNDROME I, UNSPECIFIED (4) Bilateral hip pain Status: Acute Code(s): M25.551 - PAIN IN RIGHT HIP; M25.552 - PAIN IN LEFT HIP Plan: This patient is a 66-year-old male who was admitted to hospital for syncope and episodes of ventricular tachycardia. Patient is scheduled to undergo cardiac catheterization due to these findings today. Neurology was consulted for further evaluation of chronic pain syndrome. Patient underwent placement of a nerve stimulator to his back in 2011. Following this procedure he is had chronic pain mostly radiating down his right side. He has findings of chronic regional pain syndrome. He has been treated with multiple injections over the last several years. Nothing has been of help he is tried multiple medications all of which have also failed. He is currently on morphine for treatment. His chronic pain is throughout the day. He does have some difficulty with ambulation over time due to the right-sided pain symptoms. We have recommended that he be evaluated by the pain clinic for possible evaluation of intrathecal pump placement for pain medication. Would also recommend orthopedic consultation for evaluation of bilateral hip pain and need for orthopedic surgery. Patient was seen by orthopedic surgery today. He does have evidence of arthritis in both hips. This is to be further evaluated outpatient. He does not require any immediate surgical intervention. They have suggested a possible general surgery consultation for right sided abdominal pain. Patient is scheduled for cardiac catheterization tomorrow as per cardiology's recommendation. We are waiting further evaluation from pain management in regards to other treatment options for long-term pain control. We have discussed all of these findings today with the patient in detail. We will continue to monitor his progress closely during this admission. His overall prognosis remains guarded.
[2016-08-11] MEDS: SODIUM CHLORIDE 0.9% 1,000 ML IV SCH (13:59)
--- NOTE | 2016-08-11 18:59 | PN ---
DATE OF SERVICE: 08/10/2016 66-year-old white male with history of coronary artery disease, prior bypass, prior implantation AICD, hypertension, dyslipidemia, scheduled for cardiac catheterization in the morning due to persistent ventricular fibrillation, ventricular tachycardia, started on IV amiodarone since admission, which improved. Ejection fraction of 40 to 45%. He has moderate to severe mitral regurgitation. Blood pressure is 130s over 60s. Heart rate in the 50s and ( ) is 1.8, potassium 4.0, creatinine 0.8. CARDIOVASCULAR: S1 and S2. LUNGS: Transmitted upper airway sounds. GI: Soft, nontender. HEMATOLOGIC: Negative Homans. PSYCHIATRIC: Fair mood and affect. Albumin is low at 3.4. Hemoglobin is 12.8. ASSESSMENT: 1. Non-ST elevation myocardial infarction. 2. Ventricular fibrillation. 3. Ventricular tachycardia. 4. History of coronary artery bypass graft. 5. AICD discharge. 6. Hypertension. 7. Dyslipidemia. 8. Syncope. PLAN: IV Amiodarone is being given. Continue Coreg, Lisinopril, Lipitor, heparin, cardiac catheterization Friday. He has chronic right flank, right hip, lumbar pain for which he will have to be worked up as an outpatient. He will see Dr. Patel for this.
[2016-08-11] MEDS: ALPRAZolam 0.25 MG TAB PO PRN (20:45)
--- NOTE | 2016-08-11 22:13 | CT ---
EXAMINATION TYPE: CT abdomen pelvis wo con DATE OF EXAM: 08/11/2016 9:50 PM COMPARISON: NONE INDICATION: Right sided pain radiating into the scrotum DLP: 496.2 mGycm, Automated exposure control for dose reduction was used. CONTRAST: None Study performed without Oral Contrast TECHNIQUE: Axial images were obtained from above the diaphragm to the pubic rami in the axial plane a t 5 mm thick sections. Reconstructed images are reviewed on the computer in the coronal plane. FINDINGS: Limited CT sections are obtained the lung bases. There is a calcification at the medial right lung b ase measuring 1.1 cm. Some mild atelectasis may be at the left dependent base.. CT ABDOMEN: Liver: Normal Spleen: Normal Pancreas: Normal Adrenal glands: The adrenal glands are normal. Gallbladder: Normal Kidneys: No masses are evident. No hydronephrosis is present. No cysts are present. Multiple calci fications are at the renal hilum appear to be vascular in nature. No obstructing renal stones are gareth dent. There may be ar 0.4 cm proximal right ureteral stone with a second calcification slightly more distal measuring 0.2 cm. There is fusiform prominence of the mid abdominal aorta with the AP diameter . 3.0 cm. Aorta: Vascular calcification is within the aorta. Inferior vena cava: Normal. CT PELVIS: No suspicious changes within loops of bowel are evident. Multiple diverticuli are noted within the as cending colon. Appendix: Normal as visualized. Urinary bladder: Normal. Genitourinary structures: Prostate appears unremarkable Osseous structures: No suspicious lytic or sclerotic lesions. No inguinal hernias are evident. IMPRESSIONS: 1. 1. Nonobstructing proximal right ureteral stones may be present discussed above. No hydronephrosis or hydroureter is evident. 2. Diverticulosis, greater within the ascending colon region.
[2016-08-12] MEDS ORDERED: SODIUM CHLORIDE 0.9% 1,000 ML in EMPTY BAG 1 BAG IV ONE (06:00)
[2016-08-12] MEDS ORDERED: ATORVASTATIN 80 MG TAB PO ONE (06:00)
[2016-08-12] MEDS ORDERED: ASPIRIN 325 MG TAB PO ONE (06:00)
[2016-08-12] MEDS ORDERED: HEPARIN SODIUM,PORCINE 5,000 UNIT/ML 1 ML VIAL IV PRN (06:09)
[2016-08-12] MEDS ORDERED: HEPARIN SODIUM,PORCINE/D5W PMX 25,000 UNIT in DEXTROSE/WATER 1 500ML.BAG IV SCH (06:15)
[2016-08-12 06:31] LABS: ALT 48 U/L (21-72); AST 20 U/L (17-59); Alkaline Phosphatase 51 U/L (38-126); Anion Gap 11 mmol/L; Blood Urea Nitrogen 18 mg/dL (9-20); Calcium 9.2 mg/dL (8.4-10.2); Carbon Dioxide 24 mmol/L (22-30); Chloride 108 mmol/L (98-107); Glucose 93 mg/dL (74-99); Non-African American GFR(MDRD) >60 (>60 ml/min/1.73 sqM); Sodium 143 mmol/L (137-145); Total Bilirubin 0.5 mg/dL (0.2-1.3); Total Protein 6.1 g/dL (6.3-8.2)
[2016-08-12] MEDS: CARVEDILOL 3.125 MG TAB PO SCH (06:36)
[2016-08-12 06:38] LABS: Potassium 4.1 mmol/L (3.5-5.1)
--- NOTE | 2016-08-12 07:32 | PN ---
DATE OF SERVICE: 08/11/2016 SUBJECTIVE: 66-year-old white male who is getting angioplasty, angiogram tomorrow, ( ) V. tach V fib, and chest pain. Still complaining of right flank pain, was seen by orthopedics, CT scan of the right hip did not show anything significant except for some arthritis. He is getting CAT scan of the abdomen and pelvis for the right lower quadrant pain. CARDIOVASCULAR: S1 and S2. LUNGS: Clear. GI: Right lower quadrant tenderness. No guarding. No rebound. ASSESSMENT: 1. Ventricular tachycardia . 2. Ventricular fibrillation. 3. Recurrent atypical chest pain. 4. Dyslipidemia. 5. Hypertension. 6. Chronic obstructive pulmonary disease. 7. Chronic right flank and abdominal pain. CT scan of the abdomen without contrast tonight, angiogram tomorrow and possible discharge home or to a rehab center.
[2016-08-12] MEDS: AMIODARONE 200 MG TAB PO SCH ×2 (07:55→21:34)
[2016-08-12] MEDS: LISINOPRIL 5 MG TAB PO SCH (07:56)
[2016-08-12] MEDS: HYDROcodone/APAP 10-325MG 1 EACH TAB PO SCH ×2 (07:56→21:35)
[2016-08-12] MEDS: ASPIRIN 81 MG CHEW PO SCH (07:56)
[2016-08-12] MEDS: FAMOTIDINE 20 MG TAB PO SCH (07:56)
[2016-08-12] MEDS: MORPHINE SULFATE ER 60 MG TABLET PO SCH ×2 (07:57→21:34)
[2016-08-12] MEDS ORDERED: LIDOCAINE 2% INJ 20 MG/ML (20 ML MDV) ONE ×2 (09:07→13:56)
[2016-08-12] MEDS ORDERED: IV FLUID CONTINUATION 1,000 ML IV ONE (14:08)
[2016-08-12] MEDS ORDERED: MIDAZOLAM 2 MG/2 ML VIAL ONE (14:16)
[2016-08-12] MEDS ORDERED: diphenhydrAMINE 50 MG/ML 1 ML VIAL ONE (14:17)
[2016-08-12] MEDS ORDERED: MIDAZOLAM 2 MG/2 ML VIAL IV ONE (14:20)
[2016-08-12] MEDS ORDERED: diphenhydrAMINE 50 MG/ML 1 ML VIAL IVP ONE (14:21)
[2016-08-12] MEDS ORDERED: LIDOCAINE 2% INJ 20 MG/ML SQ ONE (14:24)
[2016-08-12] MEDS ORDERED: BIVALIRUDIN 250 MG in SODIUM CHLORIDE 0.9% 50 ML IV ONE (15:30)
[2016-08-12] MEDS ORDERED: BIVALIRUDIN BOLUS 250 MG/50 ML IV ONE (15:30)
[2016-08-12] MEDS ORDERED: NITROGLYCERIN 1000MCG/10ML SYRINGE INTRACORON ONE (15:50)
[2016-08-12] MEDS ORDERED: niCARdipine Syringe (1,000 mcg/10 mL) INTRACORON ONE (15:51)
[2016-08-12] MEDS ORDERED: NITROGLYCERIN SL TABS 0.4 MG TAB SUBLINGUAL ONE ×2 (15:52→15:53)
[2016-08-12] MEDS ORDERED: CLOPIDOGREL 75 MG TAB ONE (16:05)
[2016-08-12] MEDS ORDERED: CLOPIDOGREL 75 MG TAB PO ONE (16:13)
--- NOTE | 2016-08-12 16:45 | CC ---
DATE OF SERVICE: INDICATION: Non-ST segment elevation ND. PROCEDURE NOTE: After obtaining informed consent, left heart catheterization and coronary angiogram and selective injection of the bypass grafts is performed via the right femoral artery using standard [place] catheter. Patient tolerated the procedure well without any obvious immediate complications. FINDINGS: HEMODYNAMICS: Left ventricular end-diastolic pressure is 12 to 14 mm. There is no significant gradient across the aortic valve. LEFT VENTRICULOGRAM: Left round are performed. ANGIOGRAPHIC DATA: LEFT MAIN CORONARY ARTERY: Left main coronary artery is a short vessel that shows 70% stenosis as it divides into LAD and circumflex coronary artery. LEFT ANTERIOR DESCENDING CORONARY ARTERY: LAD is totally occluded in its proximal portion. CIRCUMFLEX CORONARY ARTERY: Circumflex coronary artery shows moderate to severe disease with subtotal occlusion. There are extensive collaterals to the right coronary artery. SELECTIVE INJECTION OF THE BYPASS GRAFTS: 1. Venous graft to the right coronary artery was totally occluded on a prior cardiac cath. 2. NAVAS to LAD appears patent, proximal and distal anastomotic sites are free of disease and the body of the graft appears normal. 3. Venous graft to the diagonal appears patent. There is an 80 to 90% focal stenosis in the body of the graft. 4. Venous graft to the OM branch appears occluded. We could not locate the graft. It appears as if it is completely occluded. Femoral angiogram was performed and there is moderate to severe disease within the femoral arteries. RIGHT CORONARY ARTERY: Right coronary artery is totally occluded. CONCLUSION: [place] 3 vessel coronary artery disease with patent left internal mammary artery to left anterior descending coronary artery, venous graft to diagnosis with occluded venous graft to OM and right coronary artery. The venous graft to the diag shows critical stenosis in the distal part. PLAN: Patient will undergo angioplasty by Dr. Jeferson Lazaro, the on-call lube technician.
[2016-08-12] MEDS: SODIUM CHLORIDE 0.9% 1,000 ML IV SCH ×2 (17:01→18:52)
[2016-08-12] MEDS: LISINOPRIL 10 MG TAB PO SCH (17:02)
[2016-08-12] MEDS: CARVEDILOL 6.25 MG TAB PO SCH ×2 (17:03→17:07)
--- NOTE | 2016-08-12 17:28 | P.PN ---
Subjective 66-year-old being seen. Patient had left heart catheterization done today for non-ST elevated SD patient plan is for interventional radiology to angioplasty stent to right coronary artery which is totally occluded Objective - Vital Signs Vital signs: Vital Signs Temp 97.5 F L 08/12/16 08:20 Pulse 64 08/12/16 10:42 Resp 17 08/12/16 17:06 BP 165/75 08/12/16 17:06 Pulse Ox 95 08/12/16 17:06 Intake & Output 08/11/16 08/12/16 08/12/16 18:59 06:59 18:59 Intake Total 1246.14 296.293 Output Total 300 700 800 Balance 946.14 -700 -503.707 Weight 84.3 kg Intake: IV 180 112.7 Sodium Chloride 0.9% 1, 180 80 000 ml @ 20 mls/hr IV . Q[facility]H [facility] Rx#:[id number] Intake, IV Titration 234.14 183.593 Amount Heparin Sodium,Porcine/ 234.14 D5w Pmx 25,000 unit In Dextrose/Water 1 500ml. bag @ 12 UNITS/KG/HR 19. 59 mls/hr IV .Q24H [facility] Rx #:[id number] Heparin Sodium,Porcine/ 99.493 D5w Pmx 25,000 unit In Dextrose/Water 1 500ml. bag @ 12 UNITS/KG/HR 20. 18 mls/hr IV .Q[facility]H [facility] Rx #:[id number] Sodium Chloride 0.9% 1, 84.1 000 ml In Empty Bag 1 bag @ 1 ML/KG/HR 84.1 mls/hr IV .[id number] [facility] Rx#: [id number] Oral 832 Output: Urine 300 700 800 Other: Voiding Method Urinal Urinal # Voids 1 1 - Exam Physical exam 66-year-old male sitting up in bed does not appear in any acute distress Lungs essentially clear adequate air movement Heart S1-S2 audible and regular denying chest pain Abdomen soft nontender Extremities No evidence of edema to the lower extremities - Labs CBC & Chem 7: 08/11/16 06:17 08/12/16 05:45 Labs: Abnormal Lab Results - Last 24 Hours (Table) 08/12/16 08/12/16 Range/Units 05:45 05:45 APTT 59.2 H (22.0-30.0) sec Chloride 108 H (98-107) mmol/L Total Protein 6.1 L (6.3-8.2) g/dL Assessment and Plan Plan: Impression Present on admission syncopal episode unclear etiology rule out cardiac causes Present on admission mildly elevated troponin likely due to a non-ST elevated SD Known coronary artery disease with prior coronary artery bypass grafting Chronic systolic congestive heart failure compensated no exacerbation Known ICD Present on admission sinus bradycardia resolving Depression nonspecified Current every day smoker greater than a 20 year history Status post left heart catheterization angioplasty stenting to the right coronary artery on August 12 Plan Resume home meds as appropriate Continue recommendations by cardiology continue IV heparin Continue ROSA inhibitor beta nisha and aspirin Continue amiodarone as ordered DVT and GI prophylaxis Further recommendations pending The above dictated assessment and findings were discussed with Dr. Rey. Impression and the plan of care have been dictated as directed. Yvonne Alvarez nurse practitioner acting as a scribe for Dr. Rey
[2016-08-12] MEDS ORDERED: ATROPINE SULFATE 0.1 MG/ML 10ML SYRINGE ONE (18:14)
--- NOTE | 2016-08-12 20:29 | P.PN ---
Subjective This patient is a 66-year-old male who was seen in neurology consultation yesterday for chronic pain. Patient was complaining of mostly right-sided hip and lower pelvic pain. He was sent for x-rays of the hip and pelvis yesterday for further assessment. He was seen by orthopedic surgery today and they're consultation note is appreciated. Patient does have evidence of osteoarthritis in both hips which will be worked up as outpatient. He does not require any immediate surgical intervention. They're recommending possible general surgery consultation due to his right-sided chest pain and abdominal pain. He does have history of some type of mesh placement into the abdominal area in the past. Patient is also to be seen by pain management for further adjustment of his pain medications. He may require further intervention with intrathecal pump placement. We will await further recommendations from pain management. The patient was seen by cardiology today. He is being followed for a non-ST segment elevation myocardial infarction. He is scheduled to undergo a cardiac catheterization today. His cardiac cath revealed one included coronary artery. He was to have angioplasty. Patient states there was also 2 stents put in. Patient underwent computed tomography scan of the abdomen and pelvis yesterday. This CAT scan revealed right-sided ureteral stones. No hydronephrosis was noted on this study. Patient may benefit from urology consultation. Neurologically there is no change in his findings today. His pain level has reduced today after undergoing his cardiac catheterization. He feels the cardiac issues may have caused increased pains for him as well. We will continue to follow his progress closely. Anticipate discharge home soon. Objective - Vital Signs Vital signs: Vital Signs Temp 97.5 F L 08/12/16 08:20 Pulse 64 08/12/16 10:42 Resp 17 08/12/16 17:06 BP 133/61 08/12/16 17:48 Pulse Ox 95 08/12/16 17:06 Intake & Output 08/11/16 08/12/16 08/12/16 18:59 06:59 18:59 Intake Total 1246.14 396.293 Output Total 300 700 800 Balance 946.14 -700 -403.707 Weight 84.3 kg Intake: IV 180 112.7 Sodium Chloride 0.9% 1, 180 80 000 ml @ 20 mls/hr IV . Q24H [facility] Rx#:[id number] Intake, IV Titration 234.14 183.593 Amount Heparin Sodium,Porcine/ 234.14 D5w Pmx 25,000 unit In Dextrose/Water 1 500ml. bag @ 12 UNITS/KG/HR 19. 59 mls/hr IV .Q24H [facility] Rx #:[id number] Heparin Sodium,Porcine/ 99.493 D5w Pmx 25,000 unit In Dextrose/Water 1 500ml. bag @ 12 UNITS/KG/HR 20. 18 mls/hr IV .Q24H [facility] Rx #:[id number] Sodium Chloride 0.9% 1, 84.1 000 ml In Empty Bag 1 bag @ 1 ML/KG/HR 84.1 mls/hr IV .[id number] [facility] Rx#: [id number] Oral 832 100 Output: Urine 300 700 800 Other: Voiding Method Urinal Urinal # Voids 1 1 - Exam Physical examination: PHYSICAL EXAMINATION: Patient is resting comfortably in bed. VITAL SIGNS: Blood pressure is [1:15/56]. Heart rate is [50]. Respiration is [18 ]. Temperature is [97.5]. HEENT: Head is atraumatic, neck is supple, there were no carotid bruits. CHEST: Lungs are clear to auscultation and percussion. CARDIAC: S1, S2 normal rate and rhythm. There is no murmur. ABDOMEN: Soft and nontender. Bowel sounds are present. EXTREMITIES: There is no pedal edema. Peripheral pulses are present. Neurological examination: Neurological examination is unchanged from yesterday. Pain level is improved today. - Labs CBC & Chem 7: 08/11/16 06:17 08/12/16 05:45 Labs: Abnormal Lab Results - Last 24 Hours (Table) 08/12/16 08/12/16 Range/Units 05:45 05:45 APTT 59.2 H (22.0-30.0) sec Chloride 108 H (98-107) mmol/L Total Protein 6.1 L (6.3-8.2) g/dL Assessment and Plan (1) NSTEMI (non-ST elevated myocardial infarction) Status: Acute Code(s): I21.4 - NON-ST ELEVATION (NSTEMI) MYOCARDIAL INFARCTION (2) Syncope Status: Acute Code(s): R55 - SYNCOPE AND COLLAPSE (3) Complex regional pain syndrome Status: Acute Code(s): G90.50 - COMPLEX REGIONAL PAIN SYNDROME I, UNSPECIFIED (4) Bilateral hip pain Status: Acute Code(s): M25.551 - PAIN IN RIGHT HIP; M25.552 - PAIN IN LEFT HIP Plan: This patient is 66-year-old male who underwent cardiac catheterization today. Results are as noted above. He underwent angioplasty with stent placement. His pain level has reduced after undergoing cardiac catheterization. He underwent computed tomography scan of the abdomen and pelvis yesterday which reveals evidence of right ureteral stones. We will await further evaluation from urology to see if there is any other intervention needed. Overall the patient seems to be making progress after undergoing cardiac catheterization today. We'll continue follow his neurological status closely. His neurological examination remains nonfocal. His overall prognosis at this time remains guarded.
[2016-08-12] MEDS: ALPRAZolam 0.25 MG TAB PO PRN (21:34)
--- NOTE | 2016-08-13 06:50 | PTCA ---
DATE OF SERVICE: 08/12/2016 PROCEDURE: PTCA and stenting of body of the vein graft to the diagonal branch of LAD. PERFORMED BY: Dr. Jeferson Lazaro. CLINICAL INFORMATION: Mr. Kalin Whitaker is a 66-year-old gentleman with a known history of aortocoronary bypass surgery that was performed in the past with 4 grafts. He had a vein graft to the diagonal, distal RCA and obtuse marginal branch of circumflex and a NAVAS to LAD. Cardiac cath in 2008 revealed that the vein graft to the RCA was occluded but he had patent diagonal and obtuse marginal graft as well as NAVAS that was patent, but distally there was not much flow into the LAD. However, he presented with a non-ST elevation [place], had a shock with his defibrillator for ischemic cardiomyopathy and subsequent evaluation and coronary angiography was performed by Dr. Hernandez. Study revealed that the vein graft to the RCA was also occluded, was seen as a stump. The vein graft to the diagonal had a 90% stenosis with thrombus. The NAVAS to LAD was patent with not much antegrade flow beyond the insertion site. He was advised intervention of the vein graft to the diagonal and I proceeded to perform this in the same setting. PROCEDURE NOTE: The existing 6-[place] introducer in the right femoral artery was used to perform the procedure. I used a left bypass guide catheter to cannulate the vein graft to the diagonal. A FilterWire was used and this wire was carefully advanced and positioned beyond the lesion and the filter was opened up. I used a 3.5 caliber 15 mm long Xience stent and deployed this just beyond the lesion. I had some difficulty because of the tight lesion, but I did not pre-dilate it because of concern that we may send the thrombus distally. An excellent angiographic result was achieved. Proximal to the stented segment I deployed another 3.5 caliber, 12 mm Xience stent this time. This was telescoped into the previous 15 mm long stent. Patient had mild chest discomfort. No new EKG changes. He had excellent angiographic result without complication. The stent catheter was taken out and then the FilterWire was captured with retrieval device and final angiograms revealed remarkably good angiographic appearance and flow without complication. The sheath was sutured and patient was sent to the room in stable condition. He received Angiomax bolus and infusion and he also received 600 mg of Plavix. He was sent to the room in stable condition and there was no family to talk to, but the results were discussed with the patient in detail. FINAL IMPRESSION: An excellent angiographic result without complication was achieved and the patient was sent to the room in stable condition. Two drug-eluting Xience stents were deployed.
--- NOTE | 2016-08-13 06:54 | LTR ---
August 12, 2016 DANIEL ROSSI MD RE: Kalin Whitaker Dear Dr. Rossi: Thank you for the opportunity to participate in the care . Kalin Whitaker. His 2 vein grafts were occluded. The third vein graft which was to the diagonal branch was stented with 2 drug-eluting stents with excellent angiographic result. I expect him to do well, but his LV function is impaired and his NAVAS graft is not supplying the entire LAD ( ) unfortunately. Prognosis remains guarded. Thank you for your referral and please call for questions. With kindest regards. Sincerely, CAPRICE PHELPS MD
[2016-08-13] MEDS: SODIUM CHLORIDE 0.9% 1,000 ML IV SCH (07:05)
[2016-08-13] MEDS: CARVEDILOL 6.25 MG TAB PO SCH (07:05)
[2016-08-13 07:24] LABS: Basophils % (A) 1 %; CH 32.6; CHCM 33.5; Eosinophils # (A) 0.2 k/uL (0-0.7); Eosinophils % (A) 3 %; HCT 37.3 % (39.0-53.0); HDW 2.66; HGB 12.3 gm/dL (13.0-17.5); Luc # (Auto) 0.05; Luc % (Auto) 1; Lymphocytes % (A) 15 %; MCH 32.3 pg (25.0-35.0); MCV 97.7 fL (80.0-100.0); Mean Platelet Volume 8.2; Monocytes # (A) 0.5 k/uL (0-1.0); Monocytes % (A) 7 %; Neutrophils # (A) 4.8 k/uL (1.3-7.7); Neutrophils % (A) 74 %; RBC 3.82 m/uL (4.30-5.90); RDW 12.5 % (11.5-15.5); WBC 6.6 k/uL (3.8-10.6)
[2016-08-13 07:40] VITALS: RESP 17; TEMP 97.7
[2016-08-13] MEDS: AMIODARONE 200 MG TAB PO SCH (07:41)
[2016-08-13] MEDS: FAMOTIDINE 20 MG TAB PO SCH (07:41)
[2016-08-13] MEDS: LISINOPRIL 10 MG TAB PO SCH (07:42)
[2016-08-13] MEDS: ASPIRIN 81 MG CHEW PO SCH (07:42)
[2016-08-13] MEDS: HYDROcodone/APAP 10-325MG 1 EACH TAB PO SCH (07:47)
[2016-08-13] MEDS: MORPHINE SULFATE ER 60 MG TABLET PO SCH (07:47)
[2016-08-13 07:50] LABS: Anion Gap 8 mmol/L; Blood Urea Nitrogen 19 mg/dL (9-20); Calcium 8.8 mg/dL (8.4-10.2); Carbon Dioxide 25 mmol/L (22-30); Chloride 109 mmol/L (98-107); Glucose 101 mg/dL (74-99); Non-African American GFR(MDRD) >60 (>60 ml/min/1.73 sqM); Potassium 4.2 mmol/L (3.5-5.1); Sodium 142 mmol/L (137-145)
[2016-08-13] MEDS ORDERED: CLOPIDOGREL 75 MG TAB PO SCH (09:00)
[2016-08-13] MEDS ORDERED: ATORVASTATIN 80 MG TAB PO SCH (09:00)
[2016-08-13 11:01] VITALS: BP 141/75; PULSE 55
--- NOTE | 2016-08-13 12:40 | P.PN ---
Subjective Principal diagnosis: Syncope This is a 66-year-old gentleman with known history of coronary artery disease and prior bypass surgery, prior implantation of AICD, hypertension, hyperlipidemia, who had not followed in quite sometime with cardiology in the office. He presented to the hospital having several episodes of syncope. His device was interrogated yesterday which revealed multiple appropriate shocks for ventricular fibrillation, patient also had several episodes of ventricular tachycardia noted. His device is also at [facility]. He was initiated yesterday on IV amiodarone, he has had no further episodes of ventricular tachycardia or arrhythmia. Echo cardiogram with Doppler study was performed which revealed an ejection fraction of 40-45% with basal inferior septal hypokinesia. Right ventricle was severely enlarged. Patient was also noted to have moderate to severe mitral regurgitation. Patient was taken to the cardiac catheterization lab yesterday where he underwent angioplasty with stenting of the vein graft to the diagonal branch of the LAD. He was seen and examined this morning, denies any chest pain or difficulty in breathing EKG shows normal sinus rhythm with no changes from post-PCI. He has been up ambulating in the hallway without difficulty. No arrhythmias noted on the monitor. Hemoglobin today 12.3, platelet count 147. Potassium 4.2, BUN 19, creatinine 1.06. Objective - Vital Signs Vital signs: Vital Signs Temp 97.7 F 08/13/16 07:40 Pulse 55 L 08/13/16 11:02 Resp 17 08/13/16 11:01 BP 141/75 08/13/16 11:01 Pulse Ox 96 08/13/16 11:01 Intake & Output 08/12/16 08/13/16 08/13/16 18:59 06:59 18:59 Intake Total 383.896 5749 636 Output Total 1200 1500 Balance -803.707 -460 636 Weight 84.7 kg Intake: IV 112.7 500 400 0.9 @100mls/hr 500 400 Sodium Chloride 0.9% 1, 80 000 ml @ 20 mls/hr IV . Q24H [facility] Rx#:[id number] Intake, IV Titration 183.593 Amount Heparin Sodium,Porcine/ 99.493 D5w Pmx 25,000 unit In Dextrose/Water 1 500ml. bag @ 12 UNITS/KG/HR 20. 18 mls/hr IV .Q24H [facility] Rx #:[id number] Sodium Chloride 0.9% 1, 84.1 000 ml In Empty Bag 1 bag @ 1 ML/KG/HR 84.1 mls/hr IV .[id number] [facility] Rx#: [id number] Oral 100 540 236 Output: Urine 1200 1500 Other: Voiding Method Urinal Urinal Urinal # Voids 1 - Exam PHYSICAL EXAMINATION: HEENT: Head is atraumatic, normocephalic. Pupils equal, round. Neck is supple. There is no elevated jugular venous pressure. Ecchymosis noted above the right eye HEART EXAMINATION: S1 and S2 systolic murmur is heard. CHEST EXAMINATION: Lungs are clear to auscultation and precussion. No chest wall tenderness is noted on palpation or with deep breathing. ABDOMEN: Soft, nontender. Bowel sounds are heard. No organomegaly noted. Right groin soft, no evidence of any hematoma. EXTREMITIES: 2+ peripheral pulses with no evidence of peripheral edema and no calf tenderness noted. NEUROLOGIC patient is awake, alert and oriented -3. . - Labs CBC & Chem 7: 08/13/16 06:49 08/13/16 06:49 Labs: Abnormal Lab Results - Last 24 Hours (Table) 08/13/16 08/13/16 Range/Units 06:49 06:49 RBC 3.82 L (4.30-5.90) m/uL Hgb 12.3 L (13.0-17.5) gm/dL Hct 37.3 L (39.0-53.0) % Plt Count 147 L (150-450) k/uL Chloride 109 H (98-107) mmol/L Glucose 101 H (74-99) mg/dL Assessment and Plan (1) NSTEMI (non-ST elevated myocardial infarction) Status: Acute (2) Ventricular fibrillation Status: Acute (3) Ventricular tachycardia Status: Acute (4) Hx of CABG Status: Acute (5) AICD discharge Status: Acute (6) HTN (hypertension) Status: Acute (7) Hyperlipemia Status: Acute (8) Syncope Status: Acute Plan: Cardiology's perspective, patient may be able to be discharged home today. We will make him a follow-up appointment to see Dr. Hernandez in the office post discharge. Patient will be discharged home on amiodarone 400 mg one tablet by mouth twice a day for one week, this will then be decreased to 200 mg one tablet by mouth 3 times a day for one week, then 200 mg one tablet by mouth twice a day. Aspirin 81 mg daily, Lipitor 80 mg daily, Coreg 6.25 mg twice a day, Plavix 75 mg daily, lisinopril 10 mg daily, and sublingual nitroglycerin as needed for chest pain. Patient has been provided prescriptions for all of the above medications and he's been educated thoroughly regarding the importance of taking them on a regular basis. Patient has also been counseled regarding the importance of continuous follow-ups in the office. DNP note has been reviewed, I agree with a documented findings and plan of care. Patient was seen and examined.
--- NOTE | 2016-08-30 21:27 | DS ---
DATE OF ADMISSION: 08/08/2016 DATE OF DISCHARGE: 08/13/2016 DISCHARGE MEDICATIONS: 1. [place] 10/325 b.i.d. 2. [place] Contin 60 b.i.d. 3. Cordarone 400 b.i.d. 4. Aspirin 81 daily. 5. Lipitor 80 daily. 6. Coreg 6.25 b.i.d. 7. Plavix 75 daily. 8. Zestril 10 daily. 9. Nitroglycerin sublingual 0.4 mg sublingual p.r.n. CONDITION: Stable. PROGNOSIS: Guarded. Ambulate as tolerated. HOSPITAL COURSE OF EVENTS: 66-year-old white male came to the hospital with a non- STEMI and was taken to the [facility] and had heart catheterization and stent into the LAD. Cardiology stabilized on the medications after angioplasty was done. He was also while in the hospital by neurology for hip pain. History of right ureteral stones, which is being followed as an outpatient by his physician. DISCHARGE DIAGNOSIS(ES): Syncope and collapse, possibly due to cardiac disease. Cardiology cleared him for discharge. Neurology cleared him for discharge. He was sent home to follow up as an outpatient.
--- NOTE | 2016-09-29 20:39 | HP ---
DATE OF ADMISSION: CHIEF-COMPLAINT: A 66-year-old white male comes into the hospital with chest pain and shortness of breath. HISTORY OF PRESENT ILLNESS: 66-year-old white male with history of coronary artery disease, status post CABG, he has a pacemaker and defibrillator, cardiomyopathy. He is noncompliant with his medications. Came to the hospital without taking any medications at home. He has had multiple episodes of syncope and ecchymosis on his face. He has mildly elevated troponins. Head CT ( ) ischemia on EKG. History of ventricular tachycardia and non-ST segment [place] in the past. Medications he is only taking [place] and morphine. He gets from the pain clinic somewhere. ALLERGIES: No known drug allergies. FAMILY HISTORY: Negative for heart disease. SOCIAL HISTORY: He currently smokes, he smoked for many years, a pack to 2 packs a day. No alcohol or illicit drugs. REVIEW OF SYSTEMS: Fourteen-point review of systems negative except for as mentioned in the HPI. MUSCULOSKELETAL: He does have some arthritis. ENDOCRINE: Negative. Psychosocial negative. Derm negative. PAST MEDICAL HISTORY: As mentioned, status post CABG, coronary artery disease, pacemaker defibrillator. Hypertension. Dyslipidemia. PHYSICAL EXAM: Vital signs are reviewed. VASCULAR: No carotid bruit. HEART: S1, S2. No murmurs, rubs, gallops. ABDOMEN: Soft, nontender. Peripheral pulses are normal dorsalis pedis, posterior tibial. CENTRAL NERVOUS SYSTEM: Cranial nerves appear to be intact. Cholesterol is 92. Troponins are elevated. Hemoglobin is 14.2. ( ) 275, creatinine is normal. ASSESSMENT: 1. Syncope. 2. Non-ST segment elevated myocardial infarction. 3. Coronary artery disease, status post bypass grafting. 4. History of defibrillator discharge. IV heparin. Cardiology consulted. Beta blockers, ROSA inhibitors, aspirin, cardiac catheterization probably will be needed. Please see further orders.
== END 2016-08-13 17:04 | disposition home health service (06) | DRG 246 ==
LOC: EC 16:40 → 6SEL 17:38
PROVIDERS: ADMIT Family Medicine; ATTEND Family Medicine
PROC: B2131ZZ Fluoroscopy of Multiple Coronary Artery Bypass Grafts using Low Osmolar Contrast (ICD-10-PCS; 2016-08-12)
PROC: B2111ZZ Fluoroscopy of Multiple Coronary Arteries using Low Osmolar Contrast (ICD-10-PCS; 2016-08-12)
PROC: B2151ZZ Fluoroscopy of Left Heart using Low Osmolar Contrast (ICD-10-PCS; 2016-08-12)
PROC: 027035Z Dilation of Coronary Artery, One Artery with Two Drug-eluting Intraluminal Devices, Percutaneous Approach (ICD-10-PCS; principal; 2016-08-12 14:08)
PROC: 4A023N7 Measurement of Cardiac Sampling and Pressure, Left Heart, Percutaneous Approach (ICD-10-PCS; 2016-08-12 14:08)
DX: I21.4 Non-ST elevation (NSTEMI) myocardial infarction (principal); I49.01 Ventricular fibrillation; I50.22 Chronic systolic (congestive) heart failure; G90.50 Complex regional pain syndrome I, unspecified; I47.2 Ventricular tachycardia; N20.1 Calculus of ureter; I25.810 Atherosclerosis of coronary artery bypass graft(s) without angina pectoris; I10 Essential (primary) hypertension; F32.9 Major depressive disorder, single episode, unspecified; E78.5 Hyperlipidemia, unspecified; F17.200 Nicotine dependence, unspecified, uncomplicated; G89.4 Chronic pain syndrome; I25.10 Atherosclerotic heart disease of native coronary artery without angina pectoris; I25.2 Old myocardial infarction; I34.0 Nonrheumatic mitral (valve) insufficiency; J44.9 Chronic obstructive pulmonary disease, unspecified; M16.0 Bilateral primary osteoarthritis of hip; M54.2 Cervicalgia; R10.9 Unspecified abdominal pain; I25.5 Ischemic cardiomyopathy; Z95.1 Presence of aortocoronary bypass graft; Z95.810 Presence of automatic (implantable) cardiac defibrillator; Z79.891 Long term (current) use of opiate analgesic; Z91.14 Patient's other noncompliance with medication regimen
CPT/HCPCS: 73521; 74176; 80048; 80053; 80061; 82550; 82553; 84484; 85025; 85379; 85730; 93005; 93306; 93459; 94760; 96365; 96375; 99285

== ENCOUNTER 2016-09-16 09:34 | Day surgery (SDC) | payer MEDICARE ==
[2016-09-11 14:41] VITALS: BMI 25.0
[~2016-09-16 09:34] MED LIST: LACTATED RINGERS 1,000 ML IV SCH; SODIUM CHLORIDE 0.9% 1,000 ML IV SCH; ceFAZolin 1,000 MG in SODIUM CHLORIDE 0.9% IRRIGATIO 250 ML IRRIGATION ONE; ceFAZolin 2 GM in SODIUM CHLORIDE 0.9% 100 ML IVPB ONE
[2016-09-16 10:17] VITALS: BP 139/80; PULSE 50; TEMP 97.9
[2016-09-16 10:43] LABS: Basophils # (A) 0.1 k/uL (0-0.2); Basophils % (A) 1 %; CH 33.6; CHCM 34.8; Eosinophils # (A) 0.3 k/uL (0-0.7); Eosinophils % (A) 4 %; HCT 40.5 % (39.0-53.0); HDW 2.71; HGB 13.9 gm/dL (13.0-17.5); Luc # (Auto) 0.16; Luc % (Auto) 2; Lymphocytes # (A) 1.6 k/uL (1.0-4.8); Lymphocytes % (A) 20 %; MCH 33.4 pg (25.0-35.0); MCHC 34.3 g/dL (31.0-37.0); MCV 97.2 fL (80.0-100.0); Mean Platelet Volume 7.3; Monocytes # (A) 0.5 k/uL (0-1.0); Monocytes % (A) 6 %; Neutrophils # (A) 5.4 k/uL (1.3-7.7); Neutrophils % (A) 67 %; RBC 4.16 m/uL (4.30-5.90); RDW 12.8 % (11.5-15.5); WBC (Perox) 7.98
[2016-09-16 11:03] LABS: Anion Gap 8 mmol/L; Blood Urea Nitrogen 17 mg/dL (9-20); Calcium 9.1 mg/dL (8.4-10.2); Carbon Dioxide 28 mmol/L (22-30); Chloride 105 mmol/L (98-107); Glucose 100 mg/dL (74-99); Non-African American GFR(MDRD) >60 (>60 ml/min/1.73 sqM); Potassium 4.5 mmol/L (3.5-5.1); Sodium 141 mmol/L (137-145)
== END 2016-09-16 12:00 | disposition home or self-care (01) ==
LOC: CATHEP 09:34
PROVIDERS: ATTEND Internal Medicine Cardiovascular Disease
DX: Z45.02 Encounter for adjustment and management of automatic implantable cardiac defibrillator (principal); Z53.8 Procedure and treatment not carried out for other reasons; I25.10 Atherosclerotic heart disease of native coronary artery without angina pectoris; I25.810 Atherosclerosis of coronary artery bypass graft(s) without angina pectoris; Z95.5 Presence of coronary angioplasty implant and graft; Z95.1 Presence of aortocoronary bypass graft; I25.5 Ischemic cardiomyopathy; I10 Essential (primary) hypertension; E78.5 Hyperlipidemia, unspecified; I47.2 Ventricular tachycardia; E78.00 Pure hypercholesterolemia, unspecified; I25.2 Old myocardial infarction; G89.29 Other chronic pain; F17.200 Nicotine dependence, unspecified, uncomplicated; Z79.02 Long term (current) use of antithrombotics/antiplatelets; Z79.82 Long term (current) use of aspirin; Z79.891 Long term (current) use of opiate analgesic; Z79.899 Other long term (current) drug therapy; Z82.49 Family history of ischemic heart disease and other diseases of the circulatory system
CPT/HCPCS: 80048; 85025

== ENCOUNTER → 2018-01-06 | Outpatient (CLI) | payer MEDICARE ==
[2018-01-06 10:48] LABS: Blood Urea Nitrogen 15 mg/dL (9-20)
--- NOTE | 2018-01-06 11:47 | CT ---
EXAMINATION TYPE: CT angio neck DATE OF EXAM: 01/06/2018 COMPARISON: None HISTORY: left carotid stenosis CT DLP: 273.6 mGycm CONTRAST: CTA cervical carotids is performed and with IV Contrast, patient injected with 65 mL of Isovue 370. Contrast CTA of the cervical carotids was performed 3-D reconstruction imaging obtained at a separate workstation. Right carotid system: Mild plaque is seen of the right common carotid artery. There is severe mixed plaque also noted at the carotid bulb and proximal right ICA. Estimated diameter reduction is greate r than 90%. ECA is patent. Right vertebral artery appears unremarkable. Left carotid system: Mild plaque is seen of the left common carotid artery. There is moderate mixed plaque also noted at the carotid bulb and proximal left ICA. Estimated diameter reduction is approxi mately 70%. ECA is patent. Left vertebral artery appears unremarkable. IMPRESSION: 1. Estimated diameter reduction Right ICA greater than 90% 2. Estimated diameter reduction Left ICA approximately 70%
== END | disposition home or self-care (01) ==
LOC: RADCTMAIN 09:59
PROVIDERS: ATTEND Internal Medicine Cardiovascular Disease
DX: I65.23 Occlusion and stenosis of bilateral carotid arteries (principal); I63.59 Cerebral infarction due to unspecified occlusion or stenosis of other cerebral artery
CPT/HCPCS: 82565; 84520; 70498; 36415; Q9967

== ENCOUNTER 2018-01-09 10:40 | Day surgery (SDC) | payer MEDICARE ==
[2018-01-07 08:31] VITALS: BMI 25.7
[~2018-01-09 10:40] MED LIST changes: +MIDAZOLAM 2 MG/2 ML VIAL IV PRN; -ceFAZolin 2 GM in SODIUM CHLORIDE 0.9% 100 ML IVPB ONE; +ceFAZolin IN SWFI 2 GM/20 ML SYRINGE IVP ONE; +fentaNYL (PF) 50 MCG/ML 2 ML AMP IV PRN
[2018-01-09 11:09] VITALS: TEMP 99.1
[2018-01-09 11:32] LABS: Basophils % (A) 1 %; Eosinophils # (A) 0.1 k/uL (0-0.7); Eosinophils % (A) 2 %; HCT 35.6 % (39.0-53.0); HGB 12.4 gm/dL (13.0-17.5); Lymphocytes # (A) 1.3 k/uL (1.0-4.8); Lymphocytes % (A) 22 %; MCH 32.7 pg (25.0-35.0); MCHC 34.7 g/dL (31.0-37.0); MCV 94.1 fL (80.0-100.0); Mean Platelet Volume 7.7; Monocytes # (A) 0.4 k/uL (0-1.0); Monocytes % (A) 7 %; Neutrophils % (A) 67 %; Platelet Count 172 k/uL (150-450); RBC 3.78 m/uL (4.30-5.90); RDW 12.1 % (11.5-15.5); WBC 5.9 k/uL (3.8-10.6)
[2018-01-09 11:43] LABS: Anion Gap 6 mmol/L; Blood Urea Nitrogen 18 mg/dL (9-20); Calcium 8.7 mg/dL (8.4-10.2); Carbon Dioxide 25 mmol/L (22-30); Chloride 108 mmol/L (98-107); Glucose 89 mg/dL (74-99); Potassium 4.4 mmol/L (3.5-5.1); Sodium 139 mmol/L (137-145)
[2018-01-09] MEDS ORDERED: MIDAZOLAM 2 MG/2 ML VIAL ONE (11:45)
[2018-01-09] MEDS ORDERED: fentaNYL (PF) 50 MCG/ML 2 ML AMP ONE (11:45)
[2018-01-09] MEDS ORDERED: PROPOFOL 10 MG/ML 20 ML VIAL IV ONE (11:45)
[2018-01-09] MEDS ORDERED: LIDOCAINE 1% INJ 10MG/ML (20 ML MDV) SQ ONE (12:17)
[2018-01-09] MEDS ORDERED: LIDOCAINE 1% INJ 10MG/ML (20 ML MDV) ONE (12:18)
[2018-01-09] MEDS ORDERED: ACETAMINOPHEN TAB 325 MG TAB PO PRN (12:42)
[2018-01-09] MEDS ORDERED: HYDROcodone/APAP 5-325MG 1 EACH TAB PO PRN (12:42)
[2018-01-09 14:17] VITALS: RESP 18
[2018-01-09 16:11] VITALS: BP 123/57; PULSE 60
--- NOTE | 2018-01-14 09:08 | P.PCN ---
Date of Procedure: 01/09/18 Preoperative Diagnosis: AICD battery depletion Postoperative Diagnosis: The same Procedure(s) Performed: Generator change Description of Procedure: HISTORY: This is a 67-year-old gentleman with history of prophylactic AICD implantation. Patient has reached UNIQUE and came here for battery replacement. CONSENT: I have discussed the risks and benefits as related to the above mentioned procedure and both sedation/analgesia as well as necessary blood product administration. The patient has indicated understanding and acceptance of the risks of the procedure discussed. PROCEDURE: Patient was brought to the lab in a fasting state. Patient was given IV Versed and fentanyl for sedation. The skin over the existing pulse generator was infiltrated with lidocaine. An incision was made in the skin and was deepened until the pectoral fascia was exposed. Hemostasis was obtained. The existing pulse generator was pulled out of the pocket. The leads were disconnected and were checked for thresholds. Conscious Sedation: Provided by department of anesthesia Fentanyl Duration THRESHOLDS: ATRIAL: The minimal pacing threshold is 0.5 V at pulse width of 0.5 ms. P-wave: 4.1 VENTRICULAR:. The minimal patient threshold is 1.5 V at pulse width of 0.5 ms. The impedance is 304 ohms R-wave : 4.8 V The new device: THIS IS MANUFACTURED BY [employer]. MODEL NUMBER IS [id number] and the serial number is [id number]. THE EXPLANTED DEVICE: This is manufactured by [employer]. Model number is [id number] and the serial number is [id number]. THE LEADS: ATRIAL: This is manufactured by [employer]. Model number is [id number]. And the serial number is [id number] VENTRICULAR:. This is manufactured by [employer]. Model number is [id number]. And the serial number [id number] The leads were then connected to a new pulse generator. Pacemaker seems to function normally. DFT TESTING: His was performed under deep anesthesia provided by department of anesthesia. Ventricular fibrillation is induced with T shock. This was appropriately detected. Patient converted to sinus rhythm with a single shock of 15 J. Patient tolerated the procedure well The pocket was irrigated with antibiotics. The pocket was closed in the usual fashion. Pectoral fascia was closed with 2-0 Prolene, the subcutaneous tissue was closed with 3-0 Prolene and the skin was closed with 4-0 Prolene. Patient tolerated the procedure well . Patient will be monitored on the telemetry unit for 2-3 hours. If stable patient be discharged home later today. PROGRAMMING: CHAGO PACING: Programmed to a rate of 50 to 130. The mode is set to AAIR with mode switch to DDDR. The output in the atrium is 1.5 and the 3 V in the right ventricle. TACHYCARDIA THERAPY. The VF zone is programmed to an interval of 280 ms. Therapies are programmed to 25 J followed by 355. The VT zone is programmed to interval of 340 ms. Therapies are programmed to burst pacing followed by another burst pacing followed by cardioversion with 15 J followed by 25 followed by 352. The monitor zone was programmed to an interval of 450 ms. PLAN: Successful generator change. DFT testing FALLOW UP: Follow-up with Dr. Hernandez in one week
== END 2018-01-09 16:15 | disposition home or self-care (01) ==
LOC: CATHEP 10:40
PROVIDERS: ATTEND Internal Medicine Cardiovascular Disease
DX: I25.5 Ischemic cardiomyopathy (principal); Z45.02 Encounter for adjustment and management of automatic implantable cardiac defibrillator; I47.2 Ventricular tachycardia; I25.10 Atherosclerotic heart disease of native coronary artery without angina pectoris; Z95.1 Presence of aortocoronary bypass graft; I65.23 Occlusion and stenosis of bilateral carotid arteries; Z95.5 Presence of coronary angioplasty implant and graft; I10 Essential (primary) hypertension; E78.5 Hyperlipidemia, unspecified; F17.210 Nicotine dependence, cigarettes, uncomplicated; Z82.49 Family history of ischemic heart disease and other diseases of the circulatory system; Z79.82 Long term (current) use of aspirin; Z79.891 Long term (current) use of opiate analgesic; Z79.899 Other long term (current) drug therapy
CPT/HCPCS: 93641; 33263; 80048; 85025; J2250; J0690 ×2; J2001; J3010; J2704

== ENCOUNTER → 2018-02-20 | Outpatient (CLI) | payer MEDICARE ==
[2018-02-20 11:25] LABS: HCT 39.5 % (39.0-53.0); HGB 13.1 gm/dL (13.0-17.5); MCH 31.9 pg (25.0-35.0); MCHC 33.2 g/dL (31.0-37.0); MCV 96.1 fL (80.0-100.0); Mean Platelet Volume 7.6; Platelet Count 167 k/uL (150-450); RBC 4.11 m/uL (4.30-5.90); RDW 12.1 % (11.5-15.5)
[2018-02-20 11:39] LABS: Potassium 4.3 mmol/L (3.5-5.1)
== END | disposition home or self-care (01) ==
LOC: LABPAT 10:36
PROVIDERS: ATTEND Surgery Vascular Surgery
DX: Z01.818 Encounter for other preprocedural examination (principal); Z01.812 Encounter for preprocedural laboratory examination
CPT/HCPCS: 36415; 80051; 85027; 93005

== ENCOUNTER 2018-02-23 06:06 | Inpatient (IN) | payer MEDICARE ==
[2018-02-19 12:30] VITALS: BMI 24.4
--- NOTE | 2018-02-20 17:05 | HP ---
HISTORY AND PHYSICAL Mr. Whitaker was seen in the office, came from a Cardiac Rehab Nurse's office for carotid artery evaluation. Patient had ultrasound done which showed critical occlusion of the left carotid artery and patient had arch study. Right side is 70%, left side is more than 80%. No history of TIA or amaurosis fugax. MEDICAL HISTORY: Patient has history of CABG done in the past and the patient also has a history of arrhythmia, for that patient had a defibrillator placed by Dr. Mondragon. The patient seen for cardiac clearance from Dr. Hernandez and patient has been cleared for surgery under anesthesia. PERSONAL PAST HISTORY: No known allergies. History of smoking. No recent history of chest pain, melena, jaundice, liver or pancreatic disease. EXAMINATION: NECK: Supple. Trachea central. CHEST: Clear to auscultation. First and second sounds normal. ABDOMEN: Soft. Brachial, radial and femoral pulses are present. CENTRAL NERVOUS SYSTEM: Oriented to time and place. Normal motor function. IMPRESSION: Left carotid 80-90% and the right side is 50-60% stenosis. The patient is scheduled to have a the left carotid endarterectomy. Risks and complications of bleeding, infection, thrombosis, and stroke have been discussed. MMODL / IJN: [id number] /
[~2018-02-23 06:06] MED LIST changes: -LACTATED RINGERS 1,000 ML IV SCH; -MIDAZOLAM 2 MG/2 ML VIAL IV PRN; +NITROGLYCERIN-D5W PMX 50 MG in DEXTROSE/WATER 1 250ML.BAG IV SCH; -SODIUM CHLORIDE 0.9% 1,000 ML IV SCH; -ceFAZolin 1,000 MG in SODIUM CHLORIDE 0.9% IRRIGATIO 250 ML IRRIGATION ONE; -fentaNYL (PF) 50 MCG/ML 2 ML AMP IV PRN
[2018-02-23] MEDS ORDERED: DEXAMETHASONE SOD PHOSPHATE 10 MG/ML 1 ML VIAL IV ONE (06:22)
[2018-02-23] MEDS ORDERED: MIDAZOLAM 2 MG/2 ML VIAL IV PRN (06:22)
[2018-02-23] MEDS ORDERED: ONDANSETRON 4 MG/2 ML VIAL IVP ONE (06:22)
[2018-02-23] MEDS ORDERED: fentaNYL (PF) 50 MCG/ML 2 ML AMP IV PRN (06:22)
[2018-02-23] MEDS ORDERED: LIDOCAINE 1% 20 ML VIAL (10MG/ML) FOR IV START INTRADERMA ONE (06:59)
[2018-02-23] MEDS: LACTATED RINGERS 1,000 ML IV SCH ×2 (06:59→12:23)
[2018-02-23] MEDS ORDERED: PHENYLEPHRINE 40 MG in SODIUM CHLORIDE 0.9% 250 ML IV SCH (07:30)
[2018-02-23] MEDS ORDERED: NITROGLYCERIN-D5W PMX 50 MG in DEXTROSE/WATER 1 250ML.BAG IV SCH (07:30)
[2018-02-23] MEDS ORDERED: MIDAZOLAM 2 MG/2 ML VIAL ONE (07:54)
[2018-02-23] MEDS ORDERED: PROPOFOL 10 MG/ML 20 ML VIAL IV ONE (07:54)
[2018-02-23] MEDS ORDERED: HYDROmorphone (PF) 1 MG/ML ONE (07:54)
[2018-02-23] MEDS ORDERED: SUCCINYLCHOLINE CHLORIDE 100 MG/5 ML SYR IV ONE (07:54)
[2018-02-23] MEDS ORDERED: NEOSTIGMINE 1 MG/ML 10 ML VIAL ONE (07:54)
[2018-02-23] MEDS ORDERED: fentaNYL (PF) 50 MCG/ML 2 ML AMP ONE (07:54)
[2018-02-23] MEDS ORDERED: DEXAMETHASONE SOD PHOS (MDV) 100 MG/10 ML VIAL ONE (07:54)
[2018-02-23] MEDS ORDERED: LIDOCAINE 1% INJ 10MG/ML (20 ML MDV) ONE (07:54)
[2018-02-23] MEDS ORDERED: HEPARIN SODIUM,PORCINE 5,000 UNIT/ML 1 ML VIAL ONE (07:54)
[2018-02-23] MEDS ORDERED: ROCURONIUM BROMIDE 10 MG/ML 10 ML VIAL IV ONE (07:54)
[2018-02-23] MEDS ORDERED: PHENYLEPHRINE-0.9% NACL SYG 1 MG/10 ML SYRINGE ONE (07:54)
[2018-02-23] MEDS ORDERED: GLYCOPYRROLATE 0.2 MG/ML 2 ML VIAL ONE (07:54)
[2018-02-23] MEDS ORDERED: LACTATED RINGERS 1,000 ML IV ONE (08:10)
[2018-02-23] MEDS ORDERED: SODIUM CHLORIDE 0.9% 500 ML with HEPARIN SODIUM,PORCINE 5,000 UNIT IV ONE ×2 (08:26)
[2018-02-23] MEDS ORDERED: LIDOCAINE 1% (PF) 10 MG/ML (30 ML SDV) SQ ONE (09:18)
--- NOTE | 2018-02-23 10:18 | XR ---
EXAMINATION TYPE: XR cervical spine 1V DATE OF EXAM: 02/23/2018 COMPARISON: NONE HISTORY: Evaluate surgical equip.for neck surgerycount done portably. TECHNIQUE: Single view of the neck and upper chest in the AP position. FINDINGS: Endotracheal tube is noted appropriately placed. Left-sided catheter is noted to overlie th e mid portion of the neck on the left. IACD device and surgical clips within the chest. No radiopaque foreign body identified with certainty at this time. IMPRESSION: No radiopaque foreign body identified.
[2018-02-23] MEDS ORDERED: BENZOCAINE/MENTHOL LOZENG 1 EACH LOZENGE MUCOUS MEM PRN (10:33)
[2018-02-23] MEDS ORDERED: MAG HYDROX/AL HYDROX/SIMETH 30 ML CUP PO PRN (10:33)
[2018-02-23] MEDS ORDERED: ACETAMINOPHEN TAB 325 MG TAB PO PRN (10:33)
[2018-02-23] MEDS ORDERED: TRIMETHOBENZAMIDE 100 MG/ML 2 ML VIAL IM PRN (10:33)
--- NOTE | 2018-02-23 11:09 | OP ---
OPERATIVE REPORT PREOPERATIVE DIAGNOSIS: Critical stenosis in the left internal artery. PROCEDURE: Left carotid endarterectomy with patch angioplasty. ANESTHESIA: General. SURGEON: Dr. Carlos Pérez. SIGNALS INTELLIGENCE SUPERINTENDENT: Dr. Mina Elizabeth. This patient has critical stenosis of the left internal carotid artery. No history of TIA was previous. Patient was seen by the Cardiology. Patient has a defibrillator and coronary bypass has been cleared from Cardiology. The left neck and chest was prepped and draped in a sterile manner. A long tissue incision was made parallel to the sternocleidomastoid, deepened through skin fat and platysma. Bleeding points were electrocoagulated. Incision was deepened and jugular vein was identified and dissected until we found the fascial vein. The fascial vein was tied with 3-0 silk. During this dissection, external and common internal carotids were dissected and vessel loop was placed around it. Superior thyroid was dissected and vessel loop placed around it. The hypoglossal nerve was identified and protected, vagus was identified and protected. After that, 5000 systemic heparin was given, common external and internal were clamped. Artery dissection was made and shunt was placed. Patient had a critical stenosis of the left internal carotid artery, common external and internal carotid plaque was removed. The distal plaque in the internal was tagged with where plaque was appreciated. After that, we used a pericardial patch due to the patch angioplasty repaired with 6-0 Prolene and small opening was left and shunt was removed and flushed in usual manner. Patch angioplasty completed. Hemostasis was well controlled. Platysma was closed with 3-0 Vicryl. Skin was closed with Monocryl 3-0. Dressing applied. Patient extubated and was moving extremities well. 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 The patient was transferred to the recovery room in satisfactory condition. MMODL / IJN: [id number] /
[2018-02-23 11:46] LABS: Glucose,Whole Blood 116 mg/dL (75-99)
[2018-02-23 11:48] LABS: ALT 27 U/L (21-72); AST 11 U/L (17-59); Albumin 1.9 g/dL (3.5-5.0); Alkaline Phosphatase 35 U/L (38-126); Anion Gap 3 mmol/L; Blood Urea Nitrogen 12 mg/dL (9-20); Carbon Dioxide 19 mmol/L (22-30); Glucose 83 mg/dL (74-99); Sodium 142 mmol/L (137-145); Total Bilirubin 0.3 mg/dL (0.2-1.3); Total Protein 3.8 g/dL (6.3-8.2)
[2018-02-23 11:58] LABS: Chloride 120 mmol/L (98-107); Potassium 2.7 mmol/L (3.5-5.1)
[2018-02-23 11:59] LABS: Calcium 5.7 mg/dL (8.4-10.2)
[2018-02-23 12:02] LABS: Basophils % (A) 0 %; Eosinophils % (A) 0 %; HCT 30.1 % (39.0-53.0); Lymphocytes # (A) 0.4 k/uL (1.0-4.8); Lymphocytes % (A) 5 %; MCH 31.9 pg (25.0-35.0); MCHC 32.9 g/dL (31.0-37.0); Mean Platelet Volume 7.5; Monocytes # (A) 0.1 k/uL (0-1.0); Monocytes % (A) 1 %; Neutrophils # (A) 7.1 k/uL (1.3-7.7); Neutrophils % (A) 93 %; Platelet Count 123 k/uL (150-450); RDW 12.1 % (11.5-15.5); WBC 7.7 k/uL (3.8-10.6)
[2018-02-23 12:09] LABS: HGB 9.9 gm/dL (13.0-17.5)
[2018-02-23] MEDS ORDERED: Potassium Replacement Protocol 1 EACH MISC MISCELLANE PRN (12:18)
[2018-02-23] MEDS: POTASSIUM CHLORIDE ER 20 MEQ TAB.ER PO SCH ×3 (12:42→14:55)
[2018-02-23] MEDS: HYDROcodone/APAP 5-325MG 1 EACH TAB PO PRN ×2 (13:57→20:51)
[2018-02-23] MEDS: MORPHINE SULFATE 2 MG/ML SYRINGE IVP PRN ×2 (14:12→20:57)
--- NOTE | 2018-02-23 14:39 | P.CNPUL ---
History of Present Illness Consult date: 02/23/18 Requesting physician: Carlos Pérez Reason for consult: other (ICU management) Chief complaint: Status post left carotid endarterectomy postoperative day #0 History of present illness: This is a 67-year-old white male with history of multiple medical problems including coronary artery disease and previous CABG, chronic back pain and has a spinal stimulator, history of degenerative joint disease, history of previous AICD placement, patient was recently seen by cardiology, and he was found to have bilateral carotid artery disease, right carotid was 70%, and his left carotid is over 80%. He underwent left carotid endarterectomy today, and postoperatively he was admitted to the intensive care unit, I was asked to see him on consultation. Patient is doing relatively well, he is hemodynamically stable, in no form of respiratory distress, denies any chest pain, however he seems to have some discomfort with his Gardiner catheter having the urge to urinate. Over a year ago, patient was admitted with syncopal episodes were were felt to be mostly cardiac in nature., Intermittent episodes of ventricular tachycardia. Also related to non-ST elevation myocardial infarction. Patient was examined and interviewed in the intensive care unit, again he is noted to be in no form of distress. And hemodynamically stable. Review of Systems 14 point review of systems were obtained, patient denies any headache, no blurred vision, no dizziness. No chest pain no cough no wheezing no shortness of breath. No palpitations. No nausea no vomiting no abdominal pain, complains of urge to urinate, although the patient has a Gardiner catheter in place. He has history of chronic back pain and he has a spinal stimulator in place. Denies any GI symptoms no nausea no vomiting no abdominal pain denies any other symptoms. 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, Last Myocardial Infarction Date:: 1989 History of Any Multi-Drug Resistant Organisms: None Reported Past Surgical History: AICD, Coronary Bypass/CABG, Heart Catheterization With Stent, Hernia Repair, Pacemaker Additional Past Surgical History / Comment(s): CABG 4 vessel 1989, spinal stenosis stimlator/later removed, nelly cataracts, 5-6 cardiac stents Past Anesthesia/Blood Transfusion Reactions: No Reported Reaction Date of Last Stent Placement:: 2014 Type of Cardiac Device: Permanent Pacemaker, AICD Device Placement Date:: DECEMBER 2017 Smoking Status: Current some day smoker - Past Family History Father Family Medical History: Myocardial Infarction ([place]) Mother Family Medical History: Myocardial Infarction ([place]) Brother(s) Family Medical History: Cancer Sister(s) Additional Family Medical History / Comment(s): CABG 3-vessel Medications and Allergies Home Medications Medication Instructions Recorded Confirmed Type HYDROcodone/APAP 10-325MG [[place] 1 tab PO BID 04/23/15 02/23/18 History 10-325] Morphine Sulfate [Ms Contin] 60 mg PO BID 08/08/16 02/23/18 History Lisinopril [Zestril] 10 mg PO DAILY #30 tab 08/13/16 02/23/18 Rx Nitroglycerin Sl Tabs [Nitrostat] 0.4 mg SUBLINGUAL Q5M PRN #25 tab 08/13/16 Rx Aspirin 81 mg PO DAILY 01/07/18 02/23/18 History Atorvastatin [Lipitor] 40 mg PO DAILY 01/07/18 02/23/18 History Gabapentin [Neurontin] 100 mg PO DAILY 01/07/18 02/23/18 History Metoprolol Succinate (ER) [Toprol 25 mg PO DAILY 01/07/18 02/23/18 History Xl] Allergies Allergy/AdvReac Type Severity Reaction Status Date / Time No Known Allergies Allergy Verified 02/23/18 11:07 Physical Exam Vitals: Vital Signs Temp Pulse Pulse Resp BP BP BP 02/23/18 14:00 57 L 12 02/23/18 13:45 49 L 96/54 02/23/18 13:30 49 L 16 96/54 02/23/18 13:15 51 L 96/54 02/23/18 13:00 49 L 14 96/54 02/23/18 12:45 49 L 14 96/54 02/23/18 12:30 49 L 16 96/54 02/23/18 12:20 49 L 12 96/54 02/23/18 12:10 49 L 12 96/54 02/23/18 12:00 50 L 12 96/54 02/23/18 11:50 49 L 92/52 02/23/18 11:45 98.4 F 50 L 10 L 02/23/18 11:26 54 L 16 107/53 02/23/18 11:09 56 L 16 107/55 02/23/18 10:45 57 L 16 112/56 02/23/18 10:24 98.8 F 64 12 100/48 02/23/18 06:42 98.2 F 53 L 16 134/68 146/66 BP Pulse Ox 02/23/18 14:00 97 02/23/18 13:45 99 02/23/18 13:30 99 02/23/18 13:15 98 02/23/18 13:00 98 02/23/18 12:45 98 02/23/18 12:30 98 02/23/18 12:20 97 02/23/18 12:10 97 02/23/18 12:00 97 02/23/18 11:50 94 L 02/23/18 11:45 96 02/23/18 11:26 99/40 95 02/23/18 11:09 90/37 94 L 02/23/18 10:45 97/42 95 02/23/18 10:24 90/54 98 02/23/18 06:42 99 Intake and Output 02/22/18 02/23/18 02/23/18 22:59 06:59 14:59 Intake Total 700 1079 Output Total 625 Balance 700 454 Intake: IV 700 1079 LR 75 NS pressure bag 3 Output: Drainage 0 Left Neck 0 Urine 425 Estimated Blood Loss 200 ABP, PAP, CO, CI - Last 8 Hours Arterial Blood Pressure 106/46 Arterial Blood Pressure 110/45 Arterial Blood Pressure 110/46 Arterial Blood Pressure 110/45 Arterial Blood Pressure 106/44 Arterial Blood Pressure 105/45 Arterial Blood Pressure 101/43 Arterial Blood Pressure 100/43 Arterial Blood Pressure 102/44 Arterial Blood Pressure 105/44 Arterial Blood Pressure 102/44 Arterial Blood Pressure 107/45 Physical Exam: Revealed a 67-year-old white male in no distress. Head: Atraumatic, normocephalic. HEENT:[Neck is supple.] [No neck masses.] [No thyromegaly.] [No JVD.] PERRLA, EOMI. Chest: [Clear throughout, no crackles, no rhonchi, no wheezes.] Cardiac Exam: [Normal S1 and S2, no S3 gallop, no murmur.] Abdomen: [Soft, nontender, no megaly, no rebound, no guarding, normal bowel sounds.] Extremities: [No clubbing, no edema, no cyanosis.] Neurological Exam: [No focal neurologic deficit. Pharynx: No lymphadenopathy.] Results - Laboratory Findings CBC and BMP: 02/23/18 11:01 02/23/18 11:01 Abnormal lab findings: Abnormal Labs 02/23/18 02/23/18 02/23/18 11:01 11:01 11:43 RBC 3.10 L Hgb 9.9 L D Hct 30.1 L Plt Count 123 L Lymphocytes # 0.4 L Potassium 2.7 L* Chloride 120 H* Carbon Dioxide 19 L Creatinine 0.48 L POC Glucose (mg/dL) 116 H Calcium 5.7 L* AST 11 L Alkaline Phosphatase 35 L Total Protein 3.8 L Albumin 1.9 L Assessment and Plan Assessment: Impression: 1 status post left carotid endarterectomy, postoperative day #0. 2 acute hypokalemia, exact etiology is not clear, patient is now on the protocol for treatment of hypokalemia. 3 suspect non-anion gap hyperchloremic metabolic acidosis, most likely secondary to his IV fluids. Presently on lactated Ringer's. 4 multiple comorbidities including underlying coronary artery disease, previous CABG, previous stents placement, ischemic cardiomyopathy and LV dysfunction, previous AICD placement, history of syncope and ventricular tachycardia, history of chronic back pain and previous spinal stimulator placement. Recommendation: Continue present supportive care measures, monitor electrolytes and renal profile GI and DVT prophylaxis, we'll continue to follow. Time with Patient: Greater than 30
[2018-02-23] MEDS: PANTOPRAZOLE 40 MG/10 ML VIAL IVP SCH (14:55)
[2018-02-23] MEDS: ceFAZolin IN SWFI 2 GM/20 ML SYRINGE IVP SCH (16:50)
[2018-02-23] MEDS ORDERED: DEXTROSE 5% IN WATER 1,000 ML IV ONE (17:03)
[2018-02-23] MEDS ORDERED: CALCIUM CHLORIDE 1,000 MG in SODIUM CHLORIDE 0.9% 100 ML IVPB STA (17:03)
[2018-02-23 17:57] LABS: Ionized Calcium 5.2 mg/dL (4.5-5.3)
[2018-02-23 18:06] LABS: Anion Gap 9 mmol/L; Blood Urea Nitrogen 18 mg/dL (9-20); Carbon Dioxide 24 mmol/L (22-30); Chloride 105 mmol/L (98-107); Glucose 155 mg/dL (74-99); Potassium 4.9 mmol/L (3.5-5.1); Sodium 138 mmol/L (137-145)
[2018-02-24] MEDS: ceFAZolin IN SWFI 2 GM/20 ML SYRINGE IVP SCH (00:22)
[2018-02-24] MEDS: MORPHINE SULFATE 2 MG/ML SYRINGE IVP PRN ×3 (00:50→08:19)
[2018-02-24] MEDS: HYDROcodone/APAP 5-325MG 1 EACH TAB PO PRN (02:50)
[2018-02-24 04:42] LABS: Basophils % (A) 0 %; Eosinophils # (A) 0.1 k/uL (0-0.7); Eosinophils % (A) 0 %; HCT 36.2 % (39.0-53.0); HGB 12.1 gm/dL (13.0-17.5); Lymphocytes % (A) 6 %; MCH 31.6 pg (25.0-35.0); MCHC 33.5 g/dL (31.0-37.0); MCV 94.3 fL (80.0-100.0); Mean Platelet Volume 8.3; Monocytes # (A) 1.1 k/uL (0-1.0); Monocytes % (A) 6 %; Neutrophils # (A) 15.5 k/uL (1.3-7.7); Neutrophils % (A) 87 %; Platelet Count 150 k/uL (150-450); RBC 3.84 m/uL (4.30-5.90); WBC 17.8 k/uL (3.8-10.6)
[2018-02-24 04:52] LABS: Anion Gap 8 mmol/L; Blood Urea Nitrogen 23 mg/dL (9-20); Calcium 9.2 mg/dL (8.4-10.2); Carbon Dioxide 24 mmol/L (22-30); Chloride 105 mmol/L (98-107); Glucose 134 mg/dL (74-99); Magnesium 1.8 mg/dL (1.6-2.3); Potassium 4.3 mmol/L (3.5-5.1); Sodium 137 mmol/L (137-145)
[2018-02-24] MEDS ORDERED: Magnesium Replacement Protocol 1 EACH MISC MISCELLANE PRN (05:11)
[2018-02-24] MEDS: MAGNESIUM SULFATE-D5W PMX 1 GM in DEXTROSE/WATER 1 100ML.BAG IVPB SCH ×3 (05:39→06:50)
[2018-02-24] MEDS: PANTOPRAZOLE 40 MG/10 ML VIAL IVP SCH (08:31)
[2018-02-24] MEDS ORDERED: ASPIRIN 81 MG PO SCH (09:00)
--- NOTE | 2018-02-24 10:04 | P.PN ---
Subjective Progress Note Date: 02/24/18 Principal diagnosis: Status post left carotid endarterectomy postoperative day #1 This is a 67-year-old white male with history of multiple medical problems including coronary artery disease and previous CABG, chronic back pain and has a spinal stimulator, history of degenerative joint disease, history of previous AICD placement, patient was recently seen by cardiology, and he was found to have bilateral carotid artery disease, right carotid was 70%, and his left carotid is over 80%. He underwent left carotid endarterectomy today, and postoperatively he was admitted to the intensive care unit, I was asked to see him on consultation. Patient is doing relatively well, he is hemodynamically stable, in no form of respiratory distress, denies any chest pain, however he seems to have some discomfort with his Gardiner catheter having the urge to urinate. Over a year ago, patient was admitted with syncopal episodes were were felt to be mostly cardiac in nature., Intermittent episodes of ventricular tachycardia. Also related to non-ST elevation myocardial infarction. Patient was examined and interviewed in the intensive care unit, again he is noted to be in no form of distress. And hemodynamically stable. Patient was reevaluated today on 02/24/2018, he is doing extremely well. Asymptomatic, his drain from the surgical site was removed, patient is hemodynamically stable. Denies any specific complaints. No headaches no blurred vision no dizziness no nausea no vomiting no chest pain no shortness of breath no cough no wheezing no palpitations no dysuria frequency or urgency. His Gardiner catheter was removed yesterday. His CBC was relatively unremarkable hemoglobin is 12.1 WBC count is 17.8 electrolytes and renal profile are normal. Objective - Vital Signs Vital signs: Vital Signs Temp 98.2 F 02/24/18 00:00 Pulse 61 02/24/18 07:30 Resp 37 H 02/24/18 07:30 BP 94/48 02/23/18 18:00 Pulse Ox 98 02/24/18 07:30 Intake & Output 02/23/18 02/24/18 02/24/18 18:59 06:59 18:59 Intake Total 1876 876 148 Output Total 850 2400 255 Balance 1026 -1524 -107 Weight 87.9 kg Intake: IV 1636 876 148 Calcium Chloride 1,000 mg 100 In Sodium Chloride 0.9% 100 ml @ 100 mls/hr IVPB ONCE STA Rx#:[id number] Dextrose 5% in Water 1, 70 840 145 000 ml @ 70 mls/hr IV . [id number] ONE Rx#:[id number] LR 450 NS pressure bag 15 36 3 Oral 240 Output: Drainage 0 30 Left Neck 0 30 Urine 650 2400 225 Estimated Blood Loss 200 Other: Voiding Method Indwelling Catheter Urinal # Voids 0 2 0 ABP, PAP, CO, CI - Last Documented Arterial Blood Pressure 122/53 - Exam Physical Exam: Revealed a 67-year-old white male in no distress. Head: Atraumatic, normocephalic. HEENT:[Neck is supple.] [No neck masses.] [No thyromegaly.] [No JVD.] PERRLA, EOMI. surgical site seems to be clean, no evidence of discharge. No erythema. And no hematoma. Chest: [Clear throughout, no crackles, no rhonchi, no wheezes.] Cardiac Exam: [Normal S1 and S2, no S3 gallop, no murmur.] Abdomen: [Soft, nontender, no megaly, no rebound, no guarding, normal bowel sounds.] Extremities: [No clubbing, no edema, no cyanosis.] Neurological Exam: [No focal neurologic deficit. Pharynx: No lymphadenopathy.] - Labs CBC & Chem 7: 02/24/18 04:30 02/24/18 04:30 Labs: Abnormal Lab Results - Last 24 Hours (Table) 02/23/18 02/23/18 02/23/18 Range/Units 11:01 11:01 11:43 WBC (3.8-10.6) k/uL RBC 3.10 L (4.30-5.90) m/uL Hgb 9.9 L D (13.0-17.5) gm/dL Hct 30.1 L (39.0-53.0) % Plt Count 123 L (150-450) k/uL Neutrophils # (1.3-7.7) k/uL Lymphocytes # 0.4 L (1.0-4.8) k/uL Monocytes # (0-1.0) k/uL Potassium 2.7 L* (3.5-5.1) mmol/L Chloride 120 H* (98-107) mmol/L Carbon Dioxide 19 L (22-30) mmol/L BUN (9-20) mg/dL Creatinine 0.48 L (0.66-1.25) mg/dL Glucose (74-99) mg/dL POC Glucose (mg/dL) 116 H (75-99) mg/dL Calcium 5.7 L* (8.4-10.2) mg/dL AST 11 L (17-59) U/L Alkaline Phosphatase 35 L (38-126) U/L Total Protein 3.8 L (6.3-8.2) g/dL Albumin 1.9 L (3.5-5.0) g/dL 02/23/18 02/24/18 02/24/18 Range/Units 17:30 04:30 04:30 WBC 17.8 H (3.8-10.6) k/uL RBC 3.84 L (4.30-5.90) m/uL Hgb 12.1 L (13.0-17.5) gm/dL Hct 36.2 L (39.0-53.0) % Plt Count (150-450) k/uL Neutrophils # 15.5 H (1.3-7.7) k/uL Lymphocytes # (1.0-4.8) k/uL Monocytes # 1.1 H (0-1.0) k/uL Potassium (3.5-5.1) mmol/L Chloride (98-107) mmol/L Carbon Dioxide (22-30) mmol/L BUN 23 H (9-20) mg/dL Creatinine (0.66-1.25) mg/dL Glucose 155 H 134 H (74-99) mg/dL POC Glucose (mg/dL) (75-99) mg/dL Calcium (8.4-10.2) mg/dL AST (17-59) U/L Alkaline Phosphatase (38-126) U/L Total Protein (6.3-8.2) g/dL Albumin (3.5-5.0) g/dL Assessment and Plan Assessment: Impression: 1 status post left carotid endarterectomy, postoperative day #1 2 acute hypokalemia, exact etiology is not clear, resolved 3 suspect non-anion gap hyperchloremic metabolic acidosis, resolved 4 multiple comorbidities including underlying coronary artery disease, previous CABG, previous stents placement, ischemic cardiomyopathy and LV dysfunction, previous AICD placement, history of syncope and ventricular tachycardia, history of chronic back pain and previous spinal stimulator placement. Recommendation: Patient could be transferred out of the ICU, patient is cleared for discharge planning if okay with Dr. Pérez/vascular surgeon Time with Patient: Less than 30
[2018-02-24 12:23] VITALS: TEMP 97.9
--- NOTE | 2018-02-24 14:17 | CONS ---
CONSULTATION SUBJECTIVE: A 67-year-old white male, status post left carotid endarterectomy. Home medications are reordered. He is requesting home sleeping medication. MEDICATIONS: See list. . 14 POINT REVIEW OF SYSTEMS: Negative except for mentioned in HPI. PHYSICAL EXAM: Vital signs stable, afebrile. CARDIOVASCULAR: S1, S2. LUNGS: Clear. INTEGUMENT: Skin dry and intact on the left neck. GI: Soft. He has a pacemaker placed in the chest. HEMATOLOGY: Negative Homans. PSYCH: Fair mood and affect. VASCULAR: Shows left neck incision clean, dry, intact. His pulse is 50s to 60s, temp 97.9, blood pressure is low 100s/50s. ASSESSMENT AND PLAN: Will be discharged home today with some sleeping medications, possibly low-dose Xanax for sleeping and follow up in the office as outpatient in a week. Continue home medications. MMODL / IJN: [id number] /
[2018-02-24 14:49] VITALS: BP 138/78; PULSE 52; RESP 15
--- NOTE | 2018-02-24 15:01 | P.CRDCN ---
History of Present Illness Consult date: 02/24/18 History of present illness: This is a 67-year-old gentleman with history of for coronary artery disease with previous CABG, history of degenerative Joint disease and also previous AICD placement who was found to have bilateral carotid disease. He was seen by Dr. Pérez under underwent carotid endarterectomy on the left side. Patient is in the intensive care unit postoperatively. He remained hemodynamically stable. Denies any chest pain or shortness of breath. Did not have any cardiac arrhythmias.. At the time of my examination, patient is stable. It is possible that patient could be discharged home. Follow-up with Dr. Hernandez as an outpatient Review of Systems As per the chart Past Medical History Past Medical History: Coronary Artery Disease (CAD), Hyperlipidemia, Hypertension, Myocardial Infarction ([place]), Osteoarthritis (OA) Additional Past Medical History / Comment(s): See Dr Mondragon's H&P, chronic back pain-degenerative disks, bulging disks, spinal nerve damage from past stimulator, Last Myocardial Infarction Date:: 1989 History of Any Multi-Drug Resistant Organisms: None Reported Past Surgical History: AICD, Coronary Bypass/CABG, Heart Catheterization With Stent, Hernia Repair, Pacemaker Additional Past Surgical History / Comment(s): CABG 4 vessel 1989, spinal stenosis stimlator/later removed, nelly cataracts, 5-6 cardiac stents Past Anesthesia/Blood Transfusion Reactions: No Reported Reaction Date of Last Stent Placement:: 2014 Type of Cardiac Device: Permanent Pacemaker, AICD Device Placement Date:: DECEMBER 2017 Smoking Status: Current some day smoker - Past Family History Father Family Medical History: Myocardial Infarction ([place]) Mother Family Medical History: Myocardial Infarction ([place]) Brother(s) Family Medical History: Cancer Sister(s) Additional Family Medical History / Comment(s): CABG 3-vessel Medications and Allergies Home Medications Medication Instructions Recorded Confirmed Type HYDROcodone/APAP 10-325MG [[place] 1 tab PO BID 04/23/15 02/23/18 History 10-325] Morphine Sulfate [Ms Contin] 60 mg PO BID 08/08/16 02/23/18 History Lisinopril [Zestril] 10 mg PO DAILY #30 tab 08/13/16 02/23/18 Rx Nitroglycerin Sl Tabs [Nitrostat] 0.4 mg SUBLINGUAL Q5M PRN #25 tab 08/13/16 Rx Aspirin 81 mg PO DAILY 01/07/18 02/23/18 History Atorvastatin [Lipitor] 40 mg PO DAILY 01/07/18 02/23/18 History Gabapentin [Neurontin] 100 mg PO DAILY 01/07/18 02/23/18 History Metoprolol Succinate (ER) [Toprol 25 mg PO DAILY 01/07/18 02/23/18 History Xl] Allergies Allergy/AdvReac Type Severity Reaction Status Date / Time No Known Allergies Allergy Verified 02/23/18 11:07 Physical Exam Vitals: Vital Signs Temp Pulse Pulse Resp BP Pulse Ox 02/24/18 14:00 52 L 15 138/78 02/24/18 13:00 51 L 17 107/43 96 02/24/18 12:00 97.9 F 50 L 54 L 14 107/43 96 02/24/18 11:30 52 L 51 H 112/49 97 02/24/18 11:00 50 L 37 H 112/49 97 02/24/18 10:00 60 41 H 114/52 92 L 02/24/18 09:00 59 L 51 H 115/54 97 02/24/18 08:00 97.8 F 56 L 54 L 16 93 L 02/24/18 07:30 61 37 H 98 02/24/18 07:00 56 L 16 93 L 02/24/18 06:30 50 L 14 93 L 02/24/18 06:00 49 L 12 93 L 02/24/18 05:30 67 14 96 02/24/18 05:00 55 L 14 95 02/24/18 04:30 50 L 15 95 02/24/18 04:00 55 L 14 99 02/24/18 03:30 61 13 94 L 02/24/18 03:00 50 L 25 H 95 02/24/18 02:30 57 L 12 99 02/24/18 02:00 61 13 94 L 02/24/18 01:30 65 16 95 02/24/18 01:00 50 L 14 94 L 02/24/18 00:30 50 L 16 96 02/24/18 00:00 98.2 F 68 17 95 02/23/18 23:44 50 L 18 93 L 02/23/18 23:30 56 L 14 93 L 02/23/18 23:00 49 L 16 93 L 02/23/18 22:30 50 L 16 92 L 02/23/18 22:00 49 L 17 94 L 02/23/18 21:30 55 L 17 94 L 02/23/18 21:00 59 L 24 96 02/23/18 20:30 49 L 16 96 02/23/18 20:00 98.0 F 52 L 18 94 L 02/23/18 19:30 48 L 14 96 02/23/18 19:00 49 L 18 96 02/23/18 18:30 50 L 11 L 93 L 02/23/18 18:00 50 L 15 94/48 95 02/23/18 17:30 50 L 16 94/48 96 02/23/18 17:00 56 L 20 94/48 98 02/23/18 16:30 56 L 18 94/48 97 02/23/18 16:00 98.4 F 49 L 16 97 02/23/18 15:45 50 L 16 98 02/23/18 15:30 49 L 16 97 02/23/18 15:15 50 L 14 97 02/23/18 15:00 49 L 14 97 Intake and Output 02/23/18 02/24/18 02/24/18 22:59 06:59 14:59 Intake Total 693 584 298 Output Total 560 2000 1710 Balance 133 -1416 -1412 Intake: IV 693 584 298 Calcium Chloride 1,000 mg 100 In Sodium Chloride 0.9% 100 ml @ 100 mls/hr IVPB ONCE STA Rx#:[id number] Dextrose 5% in Water 1, 350 560 295 000 ml @ 70 mls/hr IV . [id number] ONE Rx#:[id number] LR 225 NS pressure bag 18 24 3 Output: Drainage 0 60 Left Neck 0 60 Urine 560 2000 1650 Other: Voiding Method Urinal Urinal Urinal # Voids 0 2 0 Weight 87.9 kg ABP, PAP, CO, CI - Last 8 Hours Arterial Blood Pressure 114/41 Arterial Blood Pressure 122/53 Arterial Blood Pressure 118/47 GENERAL EXAM: Patient is alert and oriented and doesn't appear to be in any acute distress HEENT: Normocephalic. Normal reaction of pupils, equal size, normal range of extraocular motion. No erythema or exudates in the throat. NECK: Postsurgical on the left side CHEST: No chest wall deformity. LUNGS: Equal air entry with no crackles or wheeze. HEART: S1 and S2 normal with no audible mumurs or gallops. Regular rhythm, femorals equal on both sides.. ABDOMEN: No hepatosplenomegaly, normal bowel sounds, no guarding or rigidity. SKIN: No rashes CENTRAL NERVOUS SYSTEM: No focal deficits. EXTREMITIES: No cyanosis, clubbing or edema. Results 02/24/18 04:30 02/24/18 04:30 CBC 02/24/18 Range/Units 04:30 WBC 17.8 H (3.8-10.6) k/uL RBC 3.84 L (4.30-5.90) m/uL Hgb 12.1 L (13.0-17.5) gm/dL Hct 36.2 L (39.0-53.0) % Plt Count 150 (150-450) k/uL Comprehensive Metabolic Panel 02/23/18 02/24/18 Range/Units 17:30 04:30 Sodium 138 137 (137-145) mmol/L Potassium 4.9 4.3 (3.5-5.1) mmol/L Chloride 105 105 (98-107) mmol/L Carbon Dioxide 24 24 (22-30) mmol/L BUN 18 23 H (9-20) mg/dL Creatinine 0.74 0.80 (0.66-1.25) mg/dL Glucose 155 H 134 H (74-99) mg/dL Calcium 9.0 9.2 (8.4-10.2) mg/dL Current Medications Generic Name Dose Route Start Last Admin Trade Name Freq PRN Reason Stop Dose Admin Acetaminophen 650 mg 02/23/18 10:33 02/23/18 22:55 Tylenol Tab PO 650 mg Q4HR PRN Administration Mild Pain Hydrocodone Bitart/Acetaminophen 1 each 02/23/18 10:33 02/24/18 02:50 [place] 5-325 PO 1 each Q6HR PRN Administration Pain Scale 4 to 6 Al Hydroxide/Mg Hydroxide 30 ml 02/23/18 10:33 Maalox PO Q6HR PRN Indigestion Aspirin 162 mg 02/24/18 09:00 02/24/18 08:30 Aspirin PO 162 mg DAILY TRAY Administration Benzocaine/Menthol 1 each 02/23/18 10:33 Cepacol Lozenge MUCOUS MEM Q2HR PRN Sore Throat Nitroglycerin/Dextrose 50 mg/ 250 mls @ 0 mls/hr 02/23/18 07:30 IV Solution IV .Q0M [facility] Protocol Titrate Phenylephrine HCl 40 mg/ 254 mls @ 0 mls/hr 02/23/18 07:30 Sodium Chloride IV .Q0M [facility] Protocol Titrate Miscellaneous Information 1 each 02/23/18 12:18 Potassium Per Protocol MISCELLANE DAILY PRN Per Protocol Protocol Miscellaneous Information 1 each 02/24/18 05:11 Magnesium Per Protocol MISCELLANE DAILY PRN Per Protocol Protocol Morphine Sulfate 2 mg 02/23/18 10:33 02/24/18 08:19 Morphine Sulfate (Inj) IVP 2 mg Q4H PRN Administration Pain Scale 6 to 7 Pantoprazole Sodium 40 mg 02/23/18 14:45 02/24/18 08:31 Protonix IVP 40 mg DAILY TRAY Administration Trimethobenzamide HCl 200 mg 02/23/18 10:33 Tigan IM Q4HR PRN Nausea And Vomiting Intake and Output 02/23/18 02/24/18 02/24/18 22:59 06:59 14:59 Intake Total 693 584 298 Output Total 560 1999 1710 Balance 133 -1416 -1412 Intake: IV 693 584 298 Calcium Chloride 1,000 mg 100 In Sodium Chloride 0.9% 100 ml @ 100 mls/hr IVPB ONCE STA Rx#:[id number] Dextrose 5% in Water 1, 350 560 295 000 ml @ 70 mls/hr IV . [id number] ONE Rx#:[id number] LR 225 NS pressure bag 18 24 3 Output: Drainage 0 60 Left Neck 0 60 Urine 560 2000 1650 Other: Voiding Method Urinal Urinal Urinal # Voids 0 2 0 Weight 87.9 kg 02/24/18 04:30 02/24/18 04:30 Assessment and Plan (1) S/P carotid endarterectomy Current Visit: Yes Status: Acute Code(s): Z98.890 - OTHER SPECIFIED POSTPROCEDURAL STATES SNOMED Code(s): 232157624 (2) HTN (hypertension) Current Visit: No Status: Acute Code(s): I10 - ESSENTIAL (PRIMARY) HYPERTENSION SNOMED Code(s): 87808347 (3) Hx of CABG Current Visit: No Status: Acute Code(s): Z95.1 - PRESENCE OF AORTOCORONARY BYPASS GRAFT SNOMED Code(s): 120254441 (4) Hyperlipemia Current Visit: No Status: Acute Code(s): E78.5 - HYPERLIPIDEMIA, UNSPECIFIED SNOMED Code(s): 77781825 (5) Cardiac defibrillator in situ Current Visit: Yes Status: Acute Code(s): Z95.810 - PRESENCE OF AUTOMATIC ( IMPLANTABLE) CARDIAC DEFIBRILLATOR SNOMED Code(s): 571876541 Plan: Patient remained clinically stable. Denied any chest pain or shortness of breath. No arrhythmias. Patient will be discharged home later today. Follow- up with Dr. Hernandez
--- NOTE | 2018-02-24 15:14 | DS ---
DISCHARGE SUMMARY PREOPERATIVE DIAGNOSIS: 1. Critical stenosis in the left carotid artery. 2. Coronary artery disease. PROCEDURE: Left lower coronary endarterectomy and the patch angioplasty because this patient has critical stenosis in the left carotid artery, asymptomatic. No history of previous. Patient had history of pacemaker and CABG done in the past. The patient went for left carotid endarterectomy with patch angioplasty yesterday. Patient seen today. His vital signs are stable. Normal sinus rhythm, motor functions are normal. Patient tolerated diet and activity well. Patient was seen by on-call consultation for medical doctor [facility]ij[facility]. PLAN: Patient going home today. Baby aspirin a day and resume home medication per Dr. Vijay Rey. Patient will be seen in my office next . MMNANCIEL / IJN: [id number] /
== END 2018-02-24 15:32 | disposition home or self-care (01) | DRG 38 ==
LOC: 2ORMAIN 06:06 → EDSTATUS 08:00 → 6ICU 10:08
PROVIDERS: ADMIT Surgery Vascular Surgery; ATTEND Surgery Vascular Surgery
PROC: 03CL0ZZ Extirpation of Matter from Left Internal Carotid Artery, Open Approach (ICD-10-PCS; principal; 2018-02-23 08:00)
PROC: 03UL0JZ Supplement Left Internal Carotid Artery with Synthetic Substitute, Open Approach (ICD-10-PCS; principal; 2018-02-23 08:00)
DX: I65.23 Occlusion and stenosis of bilateral carotid arteries (principal); E87.2 Acidosis; E87.8 Other disorders of electrolyte and fluid balance, not elsewhere classified; E87.6 Hypokalemia; R40.2363 Coma scale, best motor response, obeys commands, at hospital admission; R40.2133 Coma scale, eyes open, to sound, at hospital admission; R40.2253 Coma scale, best verbal response, oriented, at hospital admission; I25.2 Old myocardial infarction; I25.10 Atherosclerotic heart disease of native coronary artery without angina pectoris; I25.5 Ischemic cardiomyopathy; G89.29 Other chronic pain; M54.9 Dorsalgia, unspecified; I10 Essential (primary) hypertension; E78.5 Hyperlipidemia, unspecified; M48.00 Spinal stenosis, site unspecified; M19.91 Primary osteoarthritis, unspecified site; F17.210 Nicotine dependence, cigarettes, uncomplicated; Z71.6 Tobacco abuse counseling; Z79.82 Long term (current) use of aspirin; Z79.891 Long term (current) use of opiate analgesic; Z79.899 Other long term (current) drug therapy; Z95.5 Presence of coronary angioplasty implant and graft; Z95.1 Presence of aortocoronary bypass graft; Z96.9 Presence of functional implant, unspecified; Z95.810 Presence of automatic (implantable) cardiac defibrillator; Z98.42 Cataract extraction status, left eye; Z98.41 Cataract extraction status, right eye; Z82.49 Family history of ischemic heart disease and other diseases of the circulatory system; Z80.9 Family history of malignant neoplasm, unspecified
CPT/HCPCS: 72020; 80048; 80053; 82330; 83735; 84100; 85025; 86850; 86900; 86901; 88304; 88311

== ENCOUNTER → 2018-06-17 | Outpatient (CLI) | payer MEDICARE ==
--- NOTE | 2018-06-17 08:36 | CT ---
EXAMINATION TYPE: CT lumbar spine wo con DATE OF EXAM: 06/17/2018 7:58 AM COMPARISON: 05/04/2014 HISTORY: Low back pain CT DLP: 750.4 mGycm Automated exposure control for dose reduction was used. TECHNIQUE: Unenhanced CT of the lumbar spine was performed. Bone and soft tissue window settings are submitted as well as coronal and sagittal reconstructions. FINDINGS: The lumbar spine vertebral bodies maintain normal vertebral body height and alignment. Alfredo mentary discs are seen at S1-S2 and S2-S3. Disc desiccation with vacuum disc phenomenon and posterior disc calcification is present at L5-S1. Facet arthropathy is present of the lower lumbar spine. Ther e is mild infrarenal abdominal aortic aneurysm measuring 2.9 x 3.1 cm on series 3 image 49. There is moderate atherosclerosis of the abdominal aorta and its branches. Renal arterial calcifications are i ncidentally noted. There is no evidence of acute fracture or malalignment of the lumbar spine. L1-L2: There is a small broad-based disc bulge resulting in mild bilateral neural foraminal narrowing without spinal canal stenosis.. L2-L3: There is a right eccentric broad-based disc bulge present resulting in mild bilateral neural f oraminal narrowing, right greater than left. No significant spinal canal stenosis. L3-L4: There is a broad-based disc bulge and ligamentum flavum buckling resulting in moderate bilater al neural foraminal narrowing and mild spinal canal stenosis. This is progressed from the prior exam. L4-L5: There is a broad-based disc bulge, facet arthropathy and ligamentum flavum buckling resulting in moderate bilateral neural foraminal narrowing and moderate spinal canal stenosis. This is progress ed from the prior exam. L5-S1: There is a central disc herniation with 3 mm caudal extrusion superimposed upon a broad-based disc bulge with facet arthropathy resulting in severe right and moderate to severe left neural forami nal narrowing with impingement on the exiting L5 nerve root on the right and overall mild spinal tamara l stenosis. This has progressed from the prior exam. IMPRESSION: 1. Interval progression of degenerative disc disease in comparison to the prior exam of 2013 with [place]olina tral disc herniation at L5-S1 and associated 3 mm of caudal disc extrusion in combination with degene rative change resulting in moderate to severe left neural foraminal narrowing and severe right neural foraminal narrowing with impingement on the exiting nerve root and overall mild spinal canal stenosi s. 2. Multilevel moderate degenerative disc disease of the lumbar spine, again advanced from the prior, as described above. 3. Infrarenal abdominal aortic aneurysm measuring 2.9 x 3.1 cm.
== END | disposition home or self-care (01) ==
LOC: RADCTMAIN 07:30
PROVIDERS: ATTEND Psychiatry & Neurology Neurology
DX: M99.73 Connective tissue and disc stenosis of intervertebral foramina of lumbar region (principal); M51.27 Other intervertebral disc displacement, lumbosacral region; M51.37 Other intervertebral disc degeneration, lumbosacral region
CPT/HCPCS: 72131

== ENCOUNTER → 2018-06-17 | Outpatient (CLI) | payer MEDICARE ==
[2018-06-17 11:09] LABS: HCT 40.3 % (39.0-53.0); HGB 13.6 gm/dL (13.0-17.5); MCHC 33.8 g/dL (31.0-37.0); MCV 94.7 fL (80.0-100.0); Mean Platelet Volume 7.2; Platelet Count 212 k/uL (150-450); RBC 4.26 m/uL (4.30-5.90); RDW 12.3 % (11.5-15.5); WBC 8.7 k/uL (3.8-10.6)
[2018-06-17 16:16] LABS: Anion Gap 6.3 mmol/L (4.00-12.00); Carbon Dioxide 27.7 mmol/L (21.6-31.8); Potassium 4.8 mmol/L (3.5-5.5)
== END | disposition home or self-care (01) ==
LOC: LABWHC1 10:27
PROVIDERS: ATTEND Internal Medicine Cardiovascular Disease
DX: I48.0 Paroxysmal atrial fibrillation (principal)
CPT/HCPCS: 36415; 80051; 82565; 84443; 84520; 85027

== ENCOUNTER 2018-07-15 12:40 | Inpatient (IN) | payer MEDICARE ==
[2018-07-15] MEDS ORDERED: NITROGLYCERIN OINT 1 INCH/GM PACKET TOPICAL STA (13:21)
[2018-07-15] MEDS ORDERED: ASPIRIN 81 MG PO STA (13:21)
--- NOTE | 2018-07-15 13:35 | ED ---
General Adult HPI - General Chief complaint: Chest Pain Stated complaint: chest pain Time Seen by Provider: 07/15/18 12:45 Source: patient, RN notes reviewed Mode of arrival: wheelchair Limitations: no limitations - History of Present Illness Initial comments: This is a 67-year-old male with a past medical history significant for high blood pressure high cholesterol bypass surgery multiple stents. Patient states he has been having chest pain for a week and a half but nitroglycerin has helped each time. Patient states last night chest pain was not relieved by nitroglycerin and also radiated to his arms and back and was much more significant. Patient states she was mildly short of breath with this episode. Patient states he went to see his vascular surgeon today and then stopped at his crime lab analyst's office and they both recommended he come to the emergency department. Patient denies any current symptoms whatsoever. - Related Data Home Medications Medication Instructions Recorded Confirmed HYDROcodone/APAP 10-325MG [[place] 1 tab PO BID 04/23/15 07/15/18 10-325] Morphine Sulfate [Ms Contin] 60 mg PO BID 08/08/16 07/15/18 Atorvastatin [Lipitor] 40 mg PO DAILY 01/07/18 07/15/18 Gabapentin [Neurontin] 100 mg PO TID 01/07/18 07/15/18 Metoprolol Succinate (ER) [Toprol 25 mg PO DAILY 01/07/18 07/15/18 Xl] Ibuprofen [Motrin] 600 mg PO Q8HR PRN 07/15/18 07/15/18 Previous Rx's Medication Instructions Recorded Lisinopril [Zestril] 10 mg PO DAILY #30 tab 08/13/16 Allergies Allergy/AdvReac Type Severity Reaction Status Date / Time No Known Allergies Allergy Verified 07/15/18 13:46 Review of Systems ROS Statement: Those systems with pertinent positive or pertinent negative responses have been documented in the HPI. ROS Other: All systems not noted in ROS Statement are negative. Past Medical History Past Medical History: Coronary Artery Disease (CAD), Hyperlipidemia, Hypertension, Myocardial Infarction ([place]), Osteoarthritis ([place]) Additional Past Medical History / Comment(s): See Dr Mondragon's H&P, chronic back pain-degenerative disks, bulging disks, spinal nerve damage from past stimulator, Last Myocardial Infarction Date:: 1989 History of Any Multi-Drug Resistant Organisms: None Reported Past Surgical History: AICD, Coronary Bypass/CABG, Heart Catheterization With Stent, Hernia Repair, Pacemaker Additional Past Surgical History / Comment(s): CABG 4 vessel 1989, spinal stenosis stimlator/later removed, nelly cataracts, 5-6 cardiac stents Past Anesthesia/Blood Transfusion Reactions: No Reported Reaction Date of Last Stent Placement:: 2014 Type of Cardiac Device: Permanent Pacemaker, AICD Device Placement Date:: DECEMBER 2017 Past Psychological History: No Psychological Hx Reported Smoking Status: Current every day smoker Past Alcohol Use History: None Reported Past Drug Use History: None Reported - Past Family History Father Family Medical History: Myocardial Infarction ([place]) Mother Family Medical History: Myocardial Infarction [place] Brother(s) Family Medical History: Cancer Sister(s) Additional Family Medical History / Comment(s): CABG 3-vessel General Exam - General Exam Comments Initial Comments: GENERAL: Patient is well-developed and well-nourished. Patient is nontoxic and well- hydrated and is in no acute distress. ENT: Neck is soft and supple. No significant lymphadenopathy is noted. Oropharynx is clear. Moist mucous membranes. Neck has full range of motion without eliciting any pain. EYES: The sclera were anicteric and conjunctiva were pink and moist. Extraocular movements were intact and pupils were equal round and reactive to light. Eyelids were unremarkable. PULMONARY: Unlabored respirations. Good breath sounds bilaterally. No audible rales rhonchi or wheezing was noted. CARDIOVASCULAR: There is a regular rate and rhythm without any murmurs gallops or rubs. ABDOMEN: Soft and nontender with normal bowel sounds. No palpable organomegaly was noted. There is no palpable pulsatile mass. SKIN: Skin is clear with no lesions or rashes and otherwise unremarkable. NEUROLOGIC: Patient is alert and oriented x3. Cranial nerves II through XII are grossly intact. Motor and sensory are also intact. Normal speech, volume and content. Symmetrical smile. MUSCULOSKELETAL: Normal extremities with adequate strength and full range of motion. No lower extremity swelling or edema. No calf tenderness. LYMPHATICS: No significant lymphadenopathy is noted PSYCHIATRIC: Normal psychiatric evaluation. Limitations: no limitations Course Vital Signs 07/15/18 07/15/18 07/15/18 12:45 14:01 16:48 Temperature 98.1 F Pulse Rate 81 55 L 50 L Respiratory 18 18 18 Rate Blood Pressure 147/86 99/84 119/71 O2 Sat by Pulse 99 96 95 Oximetry Medical Decision Making - Medical Decision Making EKG shows atrial paced rhythm at 67 bpm MA interval is 218 QRS is 132 QT interval 404 QTC is 426. Patient's EKG is compared to an old EKG there are no acute changes noted Chest x-ray shows no acute abnormalities. Because of the elevated troponin of 0.39 started the patient on heparin immediately I spoke with Dr. Vijay Rey he agreed to admit the patient admitted the patient I wrote the orders and consult cardiology I continued heparin and aspirin Nitropaste on the floor. I spoke with cardiology and they agreed with the course of action was taken. Dr. Cartagena came down and saw the patient in the emergency department. - Lab Data Result diagrams: 07/15/18 13:05 07/15/18 13:05 Lab Results 07/15/18 07/15/18 07/15/18 Range/Units 13:05 13:05 13:05 WBC 11.0 H (3.8-10.6) k/uL RBC 4.33 (4.30-5.90) m/uL Hgb 13.6 (13.0-17.5) gm/dL Hct 41.0 (39.0-53.0) % MCV 94.6 (80.0-100.0) fL MCH 31.4 (25.0-35.0) pg MCHC 33.2 (31.0-37.0) g/dL RDW 12.3 (11.5-15.5) % Plt Count 206 (150-450) k/uL Neutrophils % 74 % Lymphocytes % 17 % Monocytes % 5 % Eosinophils % 1 % Basophils % 1 % Neutrophils # 8.1 H (1.3-7.7) k/uL Lymphocytes # 1.9 (1.0-4.8) k/uL Monocytes # 0.6 (0-1.0) k/uL Eosinophils # 0.1 (0-0.7) k/uL Basophils # 0.1 (0-0.2) k/uL PT (9.0-12.0) sec INR (<1.2) APTT (22.0-30.0) sec Sodium 139 (137-145) mmol/L Potassium 4.3 (3.5-5.1) mmol/L Chloride 106 (98-107) mmol/L Carbon Dioxide 28 (22-30) mmol/L Anion Gap 5 mmol/L BUN 17 (9-20) mg/dL Creatinine 0.76 (0.66-1.25) mg/dL Est GFR (CKD-EPI)AfAm >90 (>60 ml/min/1.73 sqM) Est GFR (CKD-EPI)NonAf >90 (>60 ml/min/1.73 sqM) Glucose 87 (74-99) mg/dL Calcium 9.4 (8.4-10.2) mg/dL Magnesium 1.8 (1.6-2.3) mg/dL Total Bilirubin 1.0 (0.2-1.3) mg/dL AST 22 (17-59) U/L ALT 30 (21-72) U/L Alkaline Phosphatase 62 (38-126) U/L Total Creatine Kinase 40 L (55-170) U/L CK-MB (CK-2) 2.6 H (0.0-2.4) ng/mL CK-MB (CK-2) Rel Index 6.5 Troponin I 0.394 H* (0.000-0.034) ng/mL Total Protein 6.9 (6.3-8.2) g/dL Albumin 4.1 (3.5-5.0) g/dL 07/15/18 Range/Units 13:05 WBC (3.8-10.6) k/uL RBC (4.30-5.90) m/uL Hgb (13.0-17.5) gm/dL Hct (39.0-53.0) % MCV (80.0-100.0) fL MCH (25.0-35.0) pg MCHC (31.0-37.0) g/dL RDW (11.5-15.5) % Plt Count (150-450) k/uL Neutrophils % % Lymphocytes % % Monocytes % % Eosinophils % % Basophils % % Neutrophils # (1.3-7.7) k/uL Lymphocytes # (1.0-4.8) k/uL Monocytes # (0-1.0) k/uL Eosinophils # (0-0.7) k/uL Basophils # (0-0.2) k/uL PT 10.3 (9.0-12.0) sec INR 1.0 (<1.2) APTT 24.2 (22.0-30.0) sec Sodium (137-145) mmol/L Potassium (3.5-5.1) mmol/L Chloride (98-107) mmol/L Carbon Dioxide (22-30) mmol/L Anion Gap mmol/L BUN (9-20) mg/dL Creatinine (0.66-1.25) mg/dL Est GFR (CKD-EPI)AfAm (>60 ml/min/1.73 sqM) Est GFR (CKD-EPI)NonAf (>60 ml/min/1.73 sqM) Glucose (74-99) mg/dL Calcium (8.4-10.2) mg/dL Magnesium (1.6-2.3) mg/dL Total Bilirubin (0.2-1.3) mg/dL AST (17-59) U/L ALT (21-72) U/L Alkaline Phosphatase (38-126) U/L Total Creatine Kinase (55-170) U/L CK-MB (CK-2) (0.0-2.4) ng/mL CK-MB (CK-2) Rel Index Troponin I (0.000-0.034) ng/mL Total Protein (6.3-8.2) g/dL Albumin (3.5-5.0) g/dL Critical Care Time Critical Care Time: Yes Total Critical Care Time: 35 Disposition Clinical Impression: Non-STEMI (non-ST elevated myocardial infarction) Disposition: ADMITTED IP TO THIS HOSP Referrals: Vijay Rey MD [Primary Care Provider] - 1-2 days Time of Disposition: 16:33
--- NOTE | 2018-07-15 14:01 | XR ---
EXAMINATION TYPE: XR chest 2V DATE OF EXAM: 07/15/2018 COMPARISON: 04/23/2015 INDICATION: Chest pain TECHNIQUE: Frontal and lateral views of the chest are obtained. FINDINGS: The heart size is normal. The pulmonary vasculature is normal. The lungs are clear. Pacemaker overlies left chest. Sternotomy wires are in the midline. IMPRESSION: 1. No acute pulmonary process. 2. Exam is stable from comparison.
[2018-07-15 15:24] LABS: Basophils # (A) 0.1 k/uL (0-0.2); Basophils % (A) 1 %; Eosinophils # (A) 0.1 k/uL (0-0.7); Eosinophils % (A) 1 %; HGB 13.6 gm/dL (13.0-17.5); Lymphocytes # (A) 1.9 k/uL (1.0-4.8); Lymphocytes % (A) 17 %; MCH 31.4 pg (25.0-35.0); MCHC 33.2 g/dL (31.0-37.0); MCV 94.6 fL (80.0-100.0); Mean Platelet Volume 7.3; Monocytes # (A) 0.6 k/uL (0-1.0); Monocytes % (A) 5 %; Neutrophils # (A) 8.1 k/uL (1.3-7.7); Neutrophils % (A) 74 %; Platelet Count 206 k/uL (150-450); RBC 4.33 m/uL (4.30-5.90); RDW 12.3 % (11.5-15.5)
[2018-07-15 15:29] LABS: Partial Thromboplastin Time 24.2 sec (22.0-30.0); Prothrombin Time 10.3 sec (9.0-12.0); Sodium 139 mmol/L (137-145)
[2018-07-15 15:30] LABS: ALT 30 U/L (21-72); AST 22 U/L (17-59); Albumin 4.1 g/dL (3.5-5.0); Alkaline Phosphatase 62 U/L (38-126); Anion Gap 5 mmol/L; Blood Urea Nitrogen 17 mg/dL (9-20); Calcium 9.4 mg/dL (8.4-10.2); Carbon Dioxide 28 mmol/L (22-30); Chloride 106 mmol/L (98-107); Glucose 87 mg/dL (74-99); Magnesium 1.8 mg/dL (1.6-2.3); Potassium 4.3 mmol/L (3.5-5.1); Total Protein 6.9 g/dL (6.3-8.2)
[2018-07-15 15:45] LABS: Creatine Kinase MB 2.6 ng/mL (0.0-2.4)
[2018-07-15 15:54] LABS: Troponin I 0.394 ng/mL (0.000-0.034)
[2018-07-15] MEDS ORDERED: HEPARIN SODIUM,PORCINE 5,000 UNIT/ML 1 ML VIAL IV ONE (16:17)
[2018-07-15] MEDS ORDERED: HEPARIN SOD,PORK IN 0.45% NACL 25,000 UNIT in 0.45% NACL 1 250ML.BAG IV SCH (16:30)
[2018-07-15] MEDS ORDERED: NITROGLYCERIN SL TABS 0.4 MG TAB SUBLINGUAL PRN (16:38)
[2018-07-15] MEDS ORDERED: PNEUMOCOCCAL VACC-PNEUMOVAX 23 25 MCG/0.5 ML VIAL IM ONE (18:13)
[2018-07-15] MEDS ORDERED: INFLUENZA VACCINE (6 MOS+) 60 MCG/0.5 ML SYRINGE IM ONE (18:13)
[2018-07-15] MEDS ORDERED: IBUPROFEN 600 MG TAB PO PRN (18:24)
[2018-07-15] MEDS: NITROGLYCERIN OINT 1 INCH/GM PACKET TOPICAL SCH (18:27)
[2018-07-15 20:28] LABS: Creatine Kinase MB 2.6 ng/mL (0.0-2.4)
[2018-07-15 20:40] LABS: Troponin I 0.305 ng/mL (0.000-0.034)
[2018-07-15] MEDS: MORPHINE SULFATE ER 60 MG TABLET PO SCH (21:03)
[2018-07-15] MEDS: HYDROcodone/APAP 10-325MG 1 EACH TAB PO SCH (21:03)
[2018-07-15] MEDS: GABAPENTIN 100 MG CAP PO SCH (21:04)
[2018-07-16 01:08] LABS: Cholesterol 132 mg/dL (<200); HDL Cholesterol 35 mg/dL (40-60); LDL Cholesterol,Calculated 56 mg/dL (0-99); Triglycerides 203 mg/dL (<150)
[2018-07-16 01:33] LABS: Creatine Kinase MB 1.6 ng/mL (0.0-2.4)
[2018-07-16 01:35] LABS: Troponin I 0.238 ng/mL (0.000-0.034)
[2018-07-16] MEDS: NITROGLYCERIN OINT 1 INCH/GM PACKET TOPICAL SCH ×2 (01:45→05:53)
[2018-07-16] MEDS: ATORVASTATIN 40 MG TAB PO SCH (07:57)
[2018-07-16] MEDS: METOPROLOL SUCCINATE (ER) 25 MG TAB.ER.24H PO SCH (07:57)
[2018-07-16] MEDS: GABAPENTIN 100 MG CAP PO SCH ×3 (07:57→21:22)
[2018-07-16] MEDS: HYDROcodone/APAP 10-325MG 1 EACH TAB PO SCH ×2 (07:57→21:23)
[2018-07-16] MEDS: LISINOPRIL 10 MG TAB PO SCH (07:57)
[2018-07-16] MEDS ORDERED: SODIUM CHLORIDE 0.9% 1,000 ML in EMPTY BAG 1 BAG IV ONE (08:42)
[2018-07-16] MEDS ORDERED: ATORVASTATIN 40 MG TAB PO STA (08:42)
[2018-07-16] MEDS ORDERED: ASPIRIN 325 MG TAB PO STA (08:42)
[2018-07-16] MEDS ORDERED: NITROGLYCERIN SL TABS 0.4 MG TAB SUBLINGUAL PRN ×2 (08:42→11:19)
[2018-07-16] MEDS ORDERED: ALPRAZolam 0.25 MG TAB PO PRN (08:42)
[2018-07-16] MEDS: MORPHINE SULFATE ER 60 MG TABLET PO SCH ×2 (08:53→21:22)
[2018-07-16] MEDS ORDERED: ASPIRIN 325 MG TAB PO SCH (09:00)
[2018-07-16 09:07] LABS: Glucose,Whole Blood 95 mg/dL (75-99)
[2018-07-16] MEDS ORDERED: IV FLUID CONTINUATION 950 ML IV ONE (09:18)
[2018-07-16] MEDS ORDERED: MIDAZOLAM 2 MG/2 ML VIAL IV ONE (09:47)
[2018-07-16] MEDS ORDERED: LIDOCAINE 1% INJ 10MG/ML (20 ML MDV) SQ ONE (09:50)
[2018-07-16] MEDS ORDERED: fentaNYL (PF) 50 MCG/ML 2 ML AMP IV ONE (10:29)
[2018-07-16] MEDS ORDERED: TICAGRELOR 90 MG TAB PO ONE (10:45)
[2018-07-16] MEDS ORDERED: BIVALIRUDIN 250 MG in SODIUM CHLORIDE 0.9% 50 ML IV ONE (10:45)
[2018-07-16] MEDS ORDERED: BIVALIRUDIN BOLUS 250 MG/50 ML IV ONE (10:45)
[2018-07-16] MEDS ORDERED: IOPAMIDOL-370 125ML BTL INJ ONE (10:51)
[2018-07-16] MEDS ORDERED: NITROGLYCERIN 1000MCG/10ML SYRINGE INTRAARTER ONE (10:53)
--- NOTE | 2018-07-16 10:58 | CC ---
CARDIAC CATHETERIZATION REPORT INDICATION: Acute non ST-segment elevation NC. PROCEDURE NOTE: After obtaining informed consent, left heart catheterization, coronary angiogram and selective injection of the bypass grafts had been performed via the right femoral artery using standard Lashaun catheters. Patient tolerated the procedure well without any obvious immediate complications. The NAVAS was engaged using the right Lashaun catheter. The venous graft to the diagonal had been engaged using the right Lashaun catheter. Venous graft to the OM seems to be occluded. I could not document any other venous graft at previous catheterization. Patient received moderate conscious sedation. Total sedation time was 20 minutes. FINDINGS: 1. HEMODYNAMICS: Left ventricular end-diastolic pressure is 18 mm. There is no significant gradient across the aortic valve. 2. LEFT VENTRICULOGRAM: Left ventriculogram is not performed. 3. ANGIOGRAPHIC DATA: LEFT MAIN CORONARY ARTERY: Left main coronary artery is a short vessel, free of significant stenosis. Divides into left anterior descending coronary artery and circumflex coronary artery. LAD is totally occluded in its proximal part, circumflex coronary artery gives off extensive collaterals to the distal right coronary artery. There is a mild to moderate atherosclerotic plaque in its proximal part. The right coronary artery is totally occluded in its proximal portion. We were not able to selectively engage it on this catheterization. LAD is chronically occluded in the proximal part. 1. BYPASS GRAFTS: NAVAS to LAD appears patent. Proximal anastomotic site and body of the graft is free of significant disease, but at the level of the anastomosis and distally there is a 70% stenosis involving [place] LAD, venous graft to the diagonal appears patent. Proximal and distal anastomotic sites are free of significant disease. Previously stented portion of the graft is patent. However, distal to the stent, there is a focal area of narrowing which at its worse seems to be an 80% stenosis. CONCLUSION: 1. [place] 3-vessel coronary artery disease. 2. Patent NAVAS to LAD. 3. Patent venous graft to the diagonal with an 80% stenosis just before the distal attachment and distal to the previous stent. PLAN: Patient will undergo angioplasty with stent placement of the diagonal graft by Dr. Hudson the on-call insurance rater. [id number] / ALEXX: [id number] /
[2018-07-16] MEDS ORDERED: IOPAMIDOL-370 100ML BTL INJ ONE (11:08)
[2018-07-16] MEDS ORDERED: RX INFO: IV CONTRAST WAS GIVEN 1 EACH MISC MISCELLANE PRN (11:19)
[2018-07-16] MEDS ORDERED: ATROPINE SULFATE 0.1 MG/ML 10ML SYRINGE IV PRN (11:19)
[2018-07-16] MEDS ORDERED: ZOLPIDEM 5 MG TAB PO PRN (11:19)
[2018-07-16] MEDS ORDERED: MAG HYDROX/AL HYDROX/SIMETH 30 ML CUP PO PRN (11:19)
[2018-07-16] MEDS ORDERED: SODIUM CHLORIDE 0.9% 1,000 ML IV SCH (11:30)
--- NOTE | 2018-07-16 11:38 | PTCA ---
PERCUTANEOUSTRANS CORORONARY ANGIOGRAPHY Mr. Whitaker is a 67-year-old male with known history of coronary artery disease, status post bypass grafting who presented with symptoms of chest discomfort and non ST- segment elevation myocardial infarction, underwent cardiac catheterization by Dr. Hernandez and was found to have critical stenosis involving the saphenous vein graft to the diagonal branch, distal to the prior stented segment. In view of that, recommendation was made regarding angioplasty and stenting. The procedures, risks and complications were discussed with the patient who is in full understanding and agreement. PROCEDURE: A 6-Nepali left coronary bypass guiding catheter introduced into the system. After cannulating the ostium of the graft, the 0.014 balanced medium weight J-wire was advanced across the lesion and positioned distally. Following that, a 3.0 x 15 mm Xience Any stent was deployed, postdilated at 16 atmospheres. Following that, the balloon was removed and a 3.25 x 12 mm NC Trek balloon was advanced and one inflation at 16 atmospheres was done. After the last inflation, after appropriate wait, the balloon and the guidewire were withdrawn back in the guiding catheter. Images were obtained and repeated. Those images reveal stable successful stenting. At that point, the guiding catheter, the balloon and the guidewire were removed. The sheath was sutured in place. The patient is returned to his room in stable condition. Of note, patient had no chest discomfort or significant EKG changes with the inflation. He received Angiomax per protocol as well as oral loading dose of Brilinta. RESULTS: Successful stenting of the distal segment of the body of the saphenous vein graft to the diagonal branch with reduction of stenosis from 80% to 0%. RECOMMENDATION: Patient will be continued on aspirin, Brilinta, and statin. The importance of dual antiplatelet treatment were discussed with the patient and he is in full understanding and agreement. MMODL / IJN: [id number] /
[2018-07-16] MEDS: ALPRAZolam 0.5 MG TAB PO PRN ×2 (12:35→21:24)
[2018-07-16 14:16] VITALS: BMI 27.0
--- NOTE | 2018-07-16 17:30 | ECHOF ---
Referral Reason:abn trop MEASUREMENTS -------- HEIGHT: 182.9 cm WEIGHT: 90.3 kg BP: 118/61 RVIDd: 3.9 cm (< 3.3) IVSd: 1.3 cm (0.6 - 1.1) LVIDd: 5.4 cm (3.9 - 5.3) LVPWd: 1.3 cm (0.6 - 1.1) IVSs: 2.0 cm LVIDs: 4.9 cm LVPWs: 1.3 cm LA Diam: 3.4 cm (2.7 - 3.8) LAESV Index (A-L): 46.05 ml/m Ao Diam: 3.7 cm (2.0 - 3.7) AV Cusp: 1.8 cm (1.5 - 2.6) MV EXCURSION: 18.807 mm (> 18.000) MV EF SLOPE: 53 mm/s (70 - 150) EPSS: 2.4 cm MV E Marcos: 1.07 m/s MV DecT: 255 ms MV A Marcos: 0.95 m/s MV E/A Ratio: 1.13 FINDINGS -------- Pacerwire seen in RV and RA. This was a technically adequate study. The left ventricular size is normal. There is mild concentric left ventricular hypertrophy. Overa ll left ventricular systolic function is mild-moderately impaired with, an EF between 40 - 45 %. Ba dorian posterior LV wall motion is hypokinetic. Basal inferior LV wall motion is hypokinetic. Basa l inferoseptal LV wall motion is akinetic. Mid inferior LV wall motion is hypokinetic. The right ventricle is mild to moderately enlarged. LA is severely dilated >40 ml/m2 The right atrium is normal in size. There is mild aortic valve sclerosis. The mitral valve is normal. Moderate mitral regurgitation is present. Mild tricuspid regurgitation present. The pulmonic valve was not well visualized. There is no pulmonic regurgitation present. The aortic root size is normal. Normal inferior vena cava with normal inspiratory collapse consistent with estimated right atrial pre ssure of 5 mmHg. There is no pericardial effusion. CONCLUSIONS -------- 1. Pacerwire seen in RV and RA. 2. This was a technically adequate study. 3. The left ventricular size is normal. 4. There is mild concentric left ventricular hypertrophy. 5. Overall left ventricular systolic function is mild-moderately impaired with, an EF between 40 - 45 %. 6. Basal posterior LV wall motion is hypokinetic. 7. Basal inferior LV wall motion is hypokinetic. 8. Basal inferoseptal LV wall motion is akinetic. 9. Mid inferior LV wall motion is hypokinetic. 10. The right ventricle is mild to moderately enlarged. 11. LA is severely dilated >40 ml/m2 12. There is mild aortic valve sclerosis. 13. Moderate mitral regurgitation is present. 14. Mild tricuspid regurgitation present. 15. The pulmonic valve was not well visualized. 16. There is no pulmonic regurgitation present. 17. The aortic root size is normal. 18. Normal inferior vena cava with normal inspiratory collapse consistent with estimated right atrial pressure of 5 mmHg. 19. There is no pericardial effusion. PATIENT SUPPORT REPRESENTATIVE: Celia Boyer RDCS
--- NOTE | 2018-07-16 23:52 | HP ---
HISTORY AND PHYSICAL CHIEF COMPLAINT: 67-year-old white male with chest pain. HISTORY OF PRESENT ILLNESS: This 67-year-old white male with hypertension, hypercholesterolemia with previous history of bypass surgery, multiple stents, came in with chest pain, relieved by nitro, shortness of breath. He went for cardiac catheterization today with PTCA x3 stents. HOME MEDICATIONS: [place], [place] Contin, Lipitor, Neurontin, metoprolol, ibuprofen. ALLERGIES: No known drug allergies. REVIEW OF SYSTEMS: Fourteen point review of systems negative except for mentioned in HPI. PAST MEDICAL HISTORY: Coronary artery disease, dyslipidemia, hypertension, osteoarthritis. PAST SURGICAL HISTORY: CABG surgery, spinal stenosis, cataract surgery, 5-6 cardiac stents in the past, permanent pacemaker, AICD, chronic back pain, degenerative disc disease, spinal nerve damage with past stimulator. FAMILY HISTORY: Father myocardial infarction, mother with myocardial infarction. Brother cancer. Sister with CABG. EXAM: Well developed, well-nourished white male in no acute distress. Cardiovascular S1, S2. LUNGS: Clear. GI soft. Hematology negative Homans. Psych: Fair mood and affect. Musculoskeletal are decreased range of motion of the joints. VITAL SIGNS: Temp 98.1, pulse 98, respiratory 18. ASSESSMENT: 1. Elevated troponin, unstable angina. 2. History of coronary artery disease. 3. Pacemaker rhythm. Continue current treatment. He has significant lumbar disc disease, on chronic pain medicines. Continue with coronary artery disease and possible stent placement. MMODL / IJN: [id number] /
[2018-07-17] MEDS: ALPRAZolam 0.5 MG TAB PO PRN (04:51)
[2018-07-17 06:51] LABS: Anion Gap 3 mmol/L; Blood Urea Nitrogen 20 mg/dL (9-20); Calcium 8.9 mg/dL (8.4-10.2); Carbon Dioxide 27 mmol/L (22-30); Chloride 108 mmol/L (98-107); Glucose 96 mg/dL (74-99); Potassium 4.4 mmol/L (3.5-5.1); Sodium 138 mmol/L (137-145)
[2018-07-17] MEDS: MORPHINE SULFATE ER 60 MG TABLET PO SCH (08:15)
[2018-07-17] MEDS: METOPROLOL SUCCINATE (ER) 25 MG TAB.ER.24H PO SCH (08:16)
[2018-07-17] MEDS: HYDROcodone/APAP 10-325MG 1 EACH TAB PO SCH (08:16)
[2018-07-17] MEDS: LISINOPRIL 10 MG TAB PO SCH (08:17)
[2018-07-17] MEDS: ATORVASTATIN 40 MG TAB PO SCH (08:17)
[2018-07-17] MEDS: GABAPENTIN 100 MG CAP PO SCH (08:17)
[2018-07-17] MEDS ORDERED: ASPIRIN 81 MG PO SCH (09:00)
[2018-07-17] MEDS ORDERED: TICAGRELOR 90 MG TAB PO SCH (09:00)
[2018-07-17 09:11] VITALS: RESP 16
--- NOTE | 2018-07-17 12:38 | P.PN ---
Subjective Progress Note Date: 07/17/18 Principal diagnosis: Non-STEMI This is a 67-year-old gentleman with known history of coronary artery disease and prior bypass of the NAVAS to the LAD, saphenous vein graft to the diagonal and OM, ischemic cardiomyopathy with prior AICD, prior carotid endarterectomy, hypertension, hyperlipidemia, who presented to the hospital with a non-Q-wave myocardial infarction. He was taken to the cardiac catheterization lab where he underwent stenting of the SVG to the diagonal branch. EKG from this morning shows a normal sinus rhythm with no changes from post-PCI. Blood pressure 106/ 60, heart rate in the 60s. Sodium 138, potassium 4.4, BUN 20, creatinine 0.8. This morning patient feels well, denies any chest pain or difficulty in breathing. He does state that he is having some difficulty in sleeping at night. Cardiogram with Doppler study was performed which revealed an ejection fraction of 40-45% with basal posterior inferior and inferior septal hypokinesia. Objective - Vital Signs Vital signs: Vital Signs Temp 98.3 F 07/17/18 08:00 Pulse 56 L 07/17/18 08:00 Resp 16 07/17/18 08:00 BP 106/53 07/17/18 08:00 Pulse Ox 96 07/17/18 08:00 Intake & Output 07/16/18 07/17/18 07/17/18 18:59 06:59 18:59 Intake Total 823.028 600 120 Output Total 1100 200 Balance -276.972 400 120 Weight 90.5 kg 88.2 kg Intake: IV 251.5 Intake, IV Titration 89.528 600 Amount Heparin Sod,Pork in 0.45% 89.528 NaCl 25,000 unit In 0.45 % NaCl 1 250ml.bag @ 11.6 UNITS/KG/HR 9.99 mls/hr IV .Q24H TRAY Rx#: [id number] Sodium Chloride 0.9% 1, 600 000 ml @ 100 mls/hr IV . Q10H TRAY Rx#:[id number] Oral 482 120 Output: Urine 1100 200 Other: # Voids 1 - Exam PHYSICAL EXAMINATION: GENERAL: 67-year-old gentleman in no acute distress at the time of my examination HEENT: Head is atraumatic, normocephalic. Pupils equal, round. Sclera anicteric. Conjunctiva are clear. Mucous membranes of the mouth are moist. Neck is supple. There is no elevated jugular venous pressure. No carotid bruit is heard. HEART EXAMINATION: Heart S1 S2 1 systolic murmur is heard. CHEST EXAMINATION: Lungs are clear to auscultation and precussion. No chest wall tenderness is noted on palpation or with deep breathing. ABDOMEN: Soft, nontender. Bowel sounds are heard. No organomegaly noted. EXTREMITIES: 2+ peripheral pulses with no evidence of peripheral edema and no calf tenderness noted. Right groin is soft, there is no evidence of any hematoma. NEUROLOGIC patient is awake, alert and oriented 3 . . - Labs CBC & Chem 7: 07/15/18 13:05 07/17/18 06:06 Labs: Abnormal Lab Results - Last 24 Hours (Table) 07/17/18 Range/Units 06:06 Chloride 108 H (98-107) mmol/L Assessment and Plan Plan: Assessment and plan #1 non-ST elevation NC status post angioplasty with stenting of the SVG to the diagonal #2 known history of coronary artery disease with prior bypass surgery #3 ischemic cardiomyopathy with prior AICD #4 hypertension #5 hyperlipidemia Plan From cardiology's perspective, patient may be able to be discharged home today. We will make him a follow-up appointment to see Dr. Cartagena in the office in 3 weeks. Patient will be discharged home on aspirin 81 mg daily, Lipitor 40 mg daily, lisinopril 10 mg daily, metoprolol 25 mg daily, Brilinta 90 mg one tablet by mouth twice a day and sublingual nitroglycerin as needed for chest pain. Because of the cost of the Brilinta, the patient will take it for only one month, will be provided with a free first month supply. After that patient will start taking Plavix and he 5 mg daily. DNP note has been reviewed, I agree with a documented findings and plan of care. Patient was seen and examined.
[2018-07-17 12:40] VITALS: BP 135/68; PULSE 53; TEMP 99.6
== END 2018-07-17 15:22 | disposition home or self-care (01) | DRG 247 ==
LOC: EC 12:40 → 3SCARD 16:38
PROVIDERS: ADMIT Family Medicine; ATTEND Family Medicine
PROC: 4A023N7 Measurement of Cardiac Sampling and Pressure, Left Heart, Percutaneous Approach (ICD-10-PCS; principal; 2018-07-15)
PROC: 027034Z Dilation of Coronary Artery, One Artery with Drug-eluting Intraluminal Device, Percutaneous Approach (ICD-10-PCS; 2018-07-15)
PROC: B2111ZZ Fluoroscopy of Multiple Coronary Arteries using Low Osmolar Contrast (ICD-10-PCS; 2018-07-15)
PROC: B2131ZZ Fluoroscopy of Multiple Coronary Artery Bypass Grafts using Low Osmolar Contrast (ICD-10-PCS; 2018-07-15)
DX: I21.4 Non-ST elevation (NSTEMI) myocardial infarction (principal); I25.710 Atherosclerosis of autologous vein coronary artery bypass graft(s) with unstable angina pectoris; I10 Essential (primary) hypertension; E78.00 Pure hypercholesterolemia, unspecified; M19.90 Unspecified osteoarthritis, unspecified site; M51.36 Other intervertebral disc degeneration, lumbar region; E78.5 Hyperlipidemia, unspecified; F17.200 Nicotine dependence, unspecified, uncomplicated; I25.5 Ischemic cardiomyopathy; Z95.1 Presence of aortocoronary bypass graft; Z95.810 Presence of automatic (implantable) cardiac defibrillator; Z95.5 Presence of coronary angioplasty implant and graft; Z79.899 Other long term (current) drug therapy; Z79.1 Long term (current) use of non-steroidal anti-inflammatories (NSAID); Z98.49 Cataract extraction status, unspecified eye; I25.2 Old myocardial infarction; Z82.49 Family history of ischemic heart disease and other diseases of the circulatory system
CPT/HCPCS: 36415; 71046; 80048; 80053; 80061; 82550; 82553; 83735; 84484; 85025; 85610; 85730; 93005; 93306; 93458; 96365; 96376; 99291; C1874

== ENCOUNTER → 2019-08-12 | Day surgery (SDC) | payer MEDICARE, OTHER ==
[2019-08-10 15:11] VITALS: BMI 24.4
[~2019-08-12] MED LIST changes: -NITROGLYCERIN-D5W PMX 50 MG in DEXTROSE/WATER 1 250ML.BAG IV SCH; +SODIUM CHLORIDE 0.9% 500 ML 500 ML IV ONE; -ceFAZolin IN SWFI 2 GM/20 ML SYRINGE IVP ONE; +fentaNYL (PF) 50 MCG/ML 2 ML AMP ONE
[2019-08-12 10:41] VITALS: RESP 18; TEMP 97.8
[2019-08-12] MEDS: MIDAZOLAM 2 MG/2 ML VIAL IVP ONE ×2 (11:54→12:04)
[2019-08-12] MEDS: BENZOCAINE SPRAY 1 CAN TOPICAL ONE ×2 (11:54→12:02)
[2019-08-12] MEDS: fentaNYL (PF) 50 MCG/ML 2 ML AMP IVP ONE ×2 (11:58→12:04)
--- NOTE | 2019-08-12 12:57 | ECHOT ---
TRANSESOPHAGEAL ECHOCARDIOGRAM INDICATION: Mitral regurgitation. PROCEDURE NOTE: After obtaining informed consent, transesophageal echocardiogram is performed in left lateral position using an Omni plane probe. Local and IV sedation were obtained using Xylocaine spray, Versed and fentanyl. Patient tolerated the procedure well without any obvious immediate complications. Patient received moderate conscious sedation. Total sedation time was 10 minutes. FINDINGS: 1. Mitral valve leaflets appear anatomically normal. There is poor coaptation of the leaflets secondary to mitral annular dilatation. There is moderate to severe primarily central mitral regurgitation noted. 2. Left atrium appears severely enlarged. 3. Right atrium and right ventricle appear mildly enlarged. The left ventricle appears enlarged. Ejection fraction is around 30%-35%.. Inferior wall appears hypokinetic. The basal inferior wall is akinetic. 4. Aortic valve is a 3-leaflet valve. There is no evidence of aortic stenosis or regurgitation. There is mild tricuspid regurgitation. Interatrial septum, there is no evidence of [id number]-dc-[id number] shunt by color-flow Doppler or bqqik-dp-jykw shunt by agitated saline contrast study. 5. Aorta shows mild to moderate atherosclerotic changes. CONCLUSION: 1. Moderate to severe mitral regurgitation, secondary to mitral annular dilatation. 2. Left atrial enlargement. 3. Severe left ventricular dysfunction with an ejection fraction of around 30%-35%. secondary to prior extensive inferior wall myocardial infarction. PLAN: I reviewed the findings with the patient and advised him on medical therapy and watchful waiting at this time. I will re-evaluate him in August. If he becomes more symptomatic, we will consider referring him for mitral valve clip or mitral repair, if he is agreeable. MMODL / IJN: [id number] /
[2019-08-12 14:06] VITALS: BP 145/74; PULSE 54
--- NOTE | 2019-08-16 13:24 | CDI ---
Date: 08.16.19 CDS/Is Support Analyst Name: Tamika Lam Phone: If any questions, call [facility] Core Cleaner at [phone] Patient Name: Kalin Whitaker Admit Date: 08.12.19 Discharge Date: 08.12.19 ATTENTION: The [facility] Coding Staff appreciate your assistance in clarifying documentation. Please respond to the clarification below the line at the bottom and electronically sign. The [facility] Coding staff will review the response and follow-up if needed. Please note: Queries are made part of the Legal Health Record. If you have any questions, please contact the Core Cleaner. Dear Dr Hernandez Your patient had a SADA, on your OP report you dictated that the patient had a SADA, and you documented the findings, but the specifics of the procedure is missing, please document the specifics of the procedure. Thank you for your kind consideration. MTDD
--- NOTE | 2019-08-27 09:59 | CDI ---
Date: 08.27.19 CDS/Pit Supervisor Name: Tamika Lam Phone: If any questions, call [facility] Plant Controls Specialist at [phone] Patient Name: Kalin Whitaker Admit Date: 08.12.19 Discharge Date: 08.12.19 ATTENTION: The [facility] Coding Staff appreciate your assistance in clarifying documentation. Please respond to the clarification below the line at the bottom and electronically sign. The [facility] Coding staff will review the response and follow-up if needed. Please note: Queries are made part of the Legal Health Record. If you have any questions, please contact the Plant Controls Specialist. Dear Dr Hernandez The description of your SADA procedure is missing. I need this info to code the CPT codes. Thank you for your kind consideration. MTDD
== END ==
LOC: CATHCVL 10:05
PROVIDERS: ATTEND Internal Medicine Cardiovascular Disease
DX: I08.1 Rheumatic disorders of both mitral and tricuspid valves (principal); I48.0 Paroxysmal atrial fibrillation; I25.5 Ischemic cardiomyopathy; E78.5 Hyperlipidemia, unspecified; F17.210 Nicotine dependence, cigarettes, uncomplicated; I10 Essential (primary) hypertension; I25.9 Chronic ischemic heart disease, unspecified; I25.810 Atherosclerosis of coronary artery bypass graft(s) without angina pectoris; E78.00 Pure hypercholesterolemia, unspecified; I47.2 Ventricular tachycardia; I25.2 Old myocardial infarction; Z95.1 Presence of aortocoronary bypass graft; Z95.810 Presence of automatic (implantable) cardiac defibrillator; Z79.01 Long term (current) use of anticoagulants; Z79.899 Other long term (current) drug therapy; Z79.82 Long term (current) use of aspirin; Z79.891 Long term (current) use of opiate analgesic; Z95.5 Presence of coronary angioplasty implant and graft; Z82.49 Family history of ischemic heart disease and other diseases of the circulatory system; Z84.89 Family history of other specified conditions
CPT/HCPCS: 93312; 93320; 93325; J2250; J3010

== ENCOUNTER → 2021-02-14 | Outpatient (CLI) | payer MEDICARE, OTHER ==
[2021-02-14 12:24] VITALS: BP 140/73; PULSE 65; RESP 18; TEMP 98.2
--- NOTE | 2021-02-14 12:40 | P.PAINCN ---
History of Present Illness - Reason for Consult Consult date: 02/14/21 - History of Present Illness This is a 70-year-old patient who was previously seeing Dr Patel and was discharged 2 months ago patient due to medication noncompliance. He mentions that he has been having low back pain for a long period of time. He has had multiple injections but is unable to recall what type of injections they were. He also had a spinal cord stimulator placement in the past year which she said caused him so much for pain that they had to remove the stimulator itself. Pain is located in the low back with occasional radiation down the right anterior lower extremity described as sharp and stabbing. Pain is constant throughout the day and he says is taking over his life. There are no alleviating factors in any sort of movement makes the pain much worse. To be on high opioid medications but due to noncompliance is in place on Suboxone 12 mg twice a day. Tries to do exercises at home but finds that it is very painful for him so he has to stop. Shortly after. Interested in radiofrequency ablation. In addition to above, 13-point review of systems is also negative for chest pain, shortness of breath, changes in vision, changes in hearing, new onset weakness, abdominal pain, diarrhea, extreme fatigue, malaise, fever, skin changes, homicidal or suicidal ideation, or bowel or bladder incontinence. Physical exam: Vital Signs: Reviewed in EMR GENERAL: obese in no acute distress PSYCH: Mood and affect is appropriate. Awake, alert, and oriented SKIN: Skin color, texture, turgor normal, no rashes or lesions HEENT: Normocephalic, atraumatic. EOM intact CV: No pedal edema RESP: Respirations are unlabored, no audible wheezing GI: Abdomen non-distended MUSCULOSKELETAL: RLE Weakness on hip flexion and extension. lumbar muscle atrophy Lumbar spine: Straight leg raising in the sitting position is positive on the right. pain to palpation over the lumbar spine and paraspinous muscles.positive for pain with facet loading and back extension/rotation. Decreased ROM on extension and flexion Buttocks: No pain to palpation over the PSIS, Letitia test is positive Extremities: Peripheral joint ROM is full and pain free without obvious instability or laxity in all four extremities. No edema or skin discolorations noted. Gait: Gait is antalgic favoring R side NEUR: Bilateral upper and lower extremity coordination and muscle stretch reflexes are physiologic and symmetric. Negative clonus. No loss of sensation is noted. Cranial nerves are grossly intact. Imaging: CT lumbar spine 2018 There is a disc herniation at L5-S1 with a caudal disc extrusion in combination with degenerative change resulting in [id number] left foraminal narrowing and severe right foraminal narrowing at this level. He also has significant facet arthropathy at L3-L4 L4-L5 and L5-S1. Assessment: 1. Lumbar spondylosis 2. Lumbar disc herniation Plan: - Schedule bilateral L4-L5 and L5-S1 medial branch block. If this is not helpful can consider L5-S1 epidural steroid injection. I spent 50 minutes on patient care today. The time was used to review medical records including relevant urine studies and prescription history (MAPs), review of the available imaging, evaluation and examination the patient, coordination of care at the medical staff and if applicable referring physicians, as well as creation of the medical record. Past Medical History Past Medical History: Coronary Artery Disease (CAD), Hyperlipidemia, Hypertension, Myocardial Infarction (NE), Osteoarthritis (OA) Additional Past Medical History / Comment(s): chronic back pain-degenerative disks, bulging disks, spinal nerve damage from past stimulator(caused post traumatic nerve damage), aneurysm-dr watching, 'hips need to be replaced", aneursym back of stomach Last Myocardial Infarction Date:: 1989 History of Any Multi-Drug Resistant Organisms: None Reported Past Surgical History: AICD, Coronary Bypass/CABG, Heart Catheterization With Stent, Hernia Repair, Pacemaker Additional Past Surgical History / Comment(s): CABG 4 vessel 1989, spinal stenosis stimlator/later removed, nelly cataracts, mult cardiac stents, aneursym in carotid artery-repaired Past Anesthesia/Blood Transfusion Reactions: No Reported Reaction Date of Last Stent Placement:: 12/17/18 Type of Cardiac Device: Permanent Pacemaker, AICD Device Placement Date:: DECEMBER 2017 Tytot[employer] Smoking Status: Current every day smoker - Past Family History Father Family Medical History: Myocardial Infarction (NE) Mother Family Medical History: Myocardial Infarction ([place]) Brother(s) Family Medical History: Cancer Sister(s) Additional Family Medical History / Comment(s): CABG 3-vessel Medications and Allergies Home Medications Medication Instructions Recorded Confirmed Type HYDROcodone/APAP 10-325MG [[place] 1 tab PO TID PRN 04/23/15 08/12/19 History 10-325] Morphine Sulfate [Ms Contin] 60 mg PO Q12HR 08/08/16 08/12/19 History lisinopriL [Zestril] 10 mg PO DAILY #30 tab 08/13/16 08/12/19 Rx Atorvastatin [Lipitor] 40 mg PO DAILY 01/07/18 08/12/19 History Gabapentin [Neurontin] 100 mg PO TID 01/07/18 08/12/19 History Metoprolol Succinate (ER) [Toprol 25 mg PO DAILY 01/07/18 08/12/19 History XL] Aspirin 81 mg PO DAILY #30 chewable 07/17/18 08/12/19 Rx Nitroglycerin Sl Tabs [Nitrostat] 0.4 mg SUBLINGUAL Q5M PRN #25 tab 07/17/18 08/12/19 Rx Allergies Allergy/AdvReac Type Severity Reaction Status Date / Time No Known Allergies Allergy Verified 02/12/21 16:00 PQRS Measure Charge Sheet PQRS Narrative: Smoking Status Current every day smoker Pain Intensity [Lower Back] 5 Scale Used Numeric (1 - 10) Hx Alcohol Use (MH) No Home Medications: Ambulatory Orders HYDROcodone/APAP 10-325MG [[place] 10-325] 1 tab PO TID PRN 04/23/15 Morphine Sulfate [Ms Contin] 60 mg PO Q12HR 08/08/16 lisinopriL [Zestril] 10 mg PO DAILY #30 tab 08/13/16 Atorvastatin [Lipitor] 40 mg PO DAILY 01/07/18 Gabapentin [Neurontin] 100 mg PO TID 01/07/18 Metoprolol Succinate (ER) [Toprol XL] 25 mg PO DAILY 01/07/18 Aspirin 81 mg PO DAILY #30 chewable 07/17/18 Nitroglycerin Sl Tabs [Nitrostat] 0.4 mg SUBLINGUAL Q5M PRN #25 tab 07/17/18
== END ==
LOC: PNWHC3 12:10
PROVIDERS: ATTEND Anesthesiology
DX: M51.26 Other intervertebral disc displacement, lumbar region (principal); M47.816 Spondylosis without myelopathy or radiculopathy, lumbar region; I25.10 Atherosclerotic heart disease of native coronary artery without angina pectoris; E78.5 Hyperlipidemia, unspecified; I10 Essential (primary) hypertension; I25.2 Old myocardial infarction; M19.90 Unspecified osteoarthritis, unspecified site; F17.200 Nicotine dependence, unspecified, uncomplicated
CPT/HCPCS: 99211

== ENCOUNTER 2021-03-02 07:33 | Day surgery (SDC) | payer MEDICARE, OTHER ==
[2021-02-28 12:17] VITALS: BMI 27.1
[2021-03-02 07:50] VITALS: TEMP 97.8
[2021-03-02] MEDS ORDERED: LACTATED RINGERS 1,000 ML IV ONE (08:02)
[2021-03-02] MEDS ORDERED: methylPREDNISolone ACETATE 40 MG/ML 1 ML VIAL ONE (08:42)
[2021-03-02] MEDS ORDERED: ROPIVACAINE 5MG/ML 20ML VIAL ONE (08:42)
[2021-03-02] MEDS ORDERED: fentaNYL (PF) 50 MCG/ML 2 ML AMP ONE (08:43)
[2021-03-02] MEDS ORDERED: MIDAZOLAM 2 MG/2 ML VIAL ONE ×2 (08:43)
--- NOTE | 2021-03-02 09:03 | P.PCN ---
Date of Procedure: 03/02/21 Procedure(s) Performed: PREOPERATIVE DIAGNOSIS : 1- Lumbar spondylosis with Facet Arthropathy without myelopathy . 2- Lumber herniated disc disease POSTOPERATIVE DIAGNOSIS: 1- Lumbar spondylosis with Facet Arthropathy without myelopathy . 2- Lumber herniated disc disease PROCEDURE: Diagnostic bilateral L3 , L4 , and L5 medial branch block under fluoroscopy guidance(fluoroscopy images available in the radiology Department ) ( To target the facet joint between bilateral L4-5 , and L5-S1 )#1 st ANESTHESIA:, monitered anesthesia care ,as per anesthesia department. EBL: Minimal COMPLICATION: None PROCEDURE INDICATION: Chronic low back pain secondary to Facet arthropathy unresponsive to conservative treatment. PROCEDURE DESCRIPTION: the patient was seen and identified in the preop holding area , risks and benefits and possible complications of the procedure and alternative were discussed with the patient, and the patient agreed to proceed with the procedure and signed the consent and vital signs monitored during the procedure and fluoroscopy was used to maximize the benefit and accuracy of the needle placement, and sedation was given to decrease patient anxiety, patient was taken to the procedure room and placed in prone position vital signs monitored in the back prepped with chlorhexidine X3 then under strict sterile technique using a right oblique fluoroscopy ,the junction of the transverse process and the superior articulating process of the right L3 , L4 , and L5 vertebra which corresponding to the fluoroscopy image of the eye of the [place] dog on the block side for the medial branches and subsequently , after local infiltration of skin and subcu tissuies with Ropivacaine 0.5 % , one mL at each level ,then 22-gauge Quincke-type needles , 3 needle was used , each one of them placed at the junction of the base of the transverse process and the superior articular process at the appropriate level, and the needle was advanced until the periosteum contacted, needle placement confirmed with AP oblique and lateral view and after appropriate needle placement confirmed, and after negative aspiration for heme and CSF and there was no paresthesia 1-1/2 mL of Ropivacaine 0.5% mixed with 20 mg Depo-Medrol , then half mL injected at each level after negative aspiration the needle subsequently removed and the same procedure repeated for the left side at left side at L3 , L4 and L5 levels. At the end of the procedure and the needles removed and a bandage applied after the skin was cleaned the cleaning solution patient taken to recovery room in stable condition and monitors in the recovery room for 20-30 minutes and discharged home in stable condition after discharge criteria met and patient will follow up with the pain clinic in 2-4 weeks
[2021-03-02] MEDS ORDERED: IV FLUID CONTINUATION 1,000 ML IV ONE ×2 (09:06)
[2021-03-02 09:07] VITALS: PULSE 55
[2021-03-02 09:23] VITALS: BP 128/76; RESP 16
--- NOTE | 2021-03-02 10:26 | FL ---
Fluoroscopy INDICATION: Pain FINDINGS: Fluoroscopy time: 8 seconds. Images obtained: 4. IMPRESSIONS: 1. Documentation of fluoroscopy.
== END 2021-03-02 09:38 | disposition home or self-care (01) ==
LOC: ORPAIN 07:33
PROVIDERS: ATTEND Specialist
DX: M47.816 Spondylosis without myelopathy or radiculopathy, lumbar region (principal); M51.26 Other intervertebral disc displacement, lumbar region; G89.29 Other chronic pain; I25.10 Atherosclerotic heart disease of native coronary artery without angina pectoris; I10 Essential (primary) hypertension; E78.5 Hyperlipidemia, unspecified; Z95.1 Presence of aortocoronary bypass graft; Z95.5 Presence of coronary angioplasty implant and graft; Z95.810 Presence of automatic (implantable) cardiac defibrillator; F17.200 Nicotine dependence, unspecified, uncomplicated; I25.2 Old myocardial infarction; Z79.82 Long term (current) use of aspirin; Z79.899 Other long term (current) drug therapy
CPT/HCPCS: 64493; 64494; J2250; J1030; J3010; J2795

== ENCOUNTER 2021-04-27 12:51 | Day surgery (SDC) | payer MEDICARE, OTHER ==
[2021-04-25 15:52] VITALS: BMI 26.8
[~2021-04-27 12:51] MED LIST changes: +LACTATED RINGERS 1,000 ML IV SCH; -SODIUM CHLORIDE 0.9% 500 ML 500 ML IV ONE; -fentaNYL (PF) 50 MCG/ML 2 ML AMP ONE
[2021-04-27 13:13] VITALS: TEMP 97.4
[2021-04-27] MEDS ORDERED: LIDOCAINE 1% (10MG/ML) FOR IV START INTRADERMA ONE (13:20)
[2021-04-27] MEDS ORDERED: TRIAMCINOLONE ACETONIDE 40 MG/ML 1 ML VIAL ONE (14:02)
[2021-04-27] MEDS ORDERED: fentaNYL (PF) 50 MCG/ML 2 ML AMP ONE (14:02)
[2021-04-27] MEDS ORDERED: MIDAZOLAM 2 MG/2 ML VIAL ONE (14:02)
[2021-04-27] MEDS ORDERED: ROPIVACAINE 5MG/ML 20ML VIAL ONE (14:02)
--- NOTE | 2021-04-27 14:22 | P.PCN ---
Date of Procedure: 04/27/21 Procedure(s) Performed: PREOPERATIVE DIAGNOSIS : 1- Lumbar spondylosis with Facet Arthropathy without myelopathy . 2- Lumber herniated disc disease POSTOPERATIVE DIAGNOSIS: 1- Lumbar spondylosis with Facet Arthropathy without myelopathy . 2- Lumber herniated disc disease PROCEDURE: Diagnostic bilateral L3 , L4 , and L5 medial branch block under fluoroscopy guidance(fluoroscopy images available in the radiology Department ) ( To target the facet joint between bilateral L4-5 , and L5-S1 )# 2nd ANESTHESIA:, monitered anesthesia care ,as per anesthesia department. EBL: Minimal COMPLICATION: None PROCEDURE INDICATION: Chronic low back pain secondary to Facet arthropathy unresponsive to conservative treatment. PROCEDURE DESCRIPTION: the patient was seen and identified in the preop holding area , risks and benefits and possible complications of the procedure and alternative were discussed with the patient, and the patient agreed to proceed with the procedure and signed the consent and vital signs monitored during the procedure and fluoroscopy was used to maximize the benefit and accuracy of the needle placement, and sedation was given to decrease patient anxiety, patient was taken to the procedure room and placed in prone position vital signs monitored in the back prepped with chlorhexidine X3 then under strict sterile technique using a right oblique fluoroscopy ,the junction of the transverse process and the superior articulating process of the right L3 , L4 , and L5 vertebra which corresponding to the fluoroscopy image of the eye of the Devon dog on the block side for the medial branches and subsequently , after local infiltration of skin and subcu tissuies with Ropivacaine 0.5 % , one mL at each level ,then 22-gauge Quincke-type needles , 3 needle was used , each one of them placed at the junction of the base of the transverse process and the superior articular process at the appropriate level, and the needle was advanced until the periosteum contacted, needle placement confirmed with AP oblique and lateral view and after appropriate needle placement confirmed, and after negative aspiration for heme and CSF and there was no paresthesia 1-1/2 mL of Ropivacaine 0.5% mixed with 20 mg Kenalog , then half mL injected at each level after negative aspiration the needle subsequently removed and the same procedure repeated for the left side at left side at L3 , L4 and L5 levels. At the end of the procedure and the needles removed and a bandage applied after the skin was cleaned the cleaning solution patient taken to recovery room in stable condition and monitors in the recovery room for 20-30 minutes and discharged home in stable condition after discharge criteria met and patient will follow up with the pain clinic in 2-4 weeks
[2021-04-27 14:31] VITALS: BP 144/74; PULSE 65; RESP 14
--- NOTE | 2021-04-27 14:31 | FL ---
Fluoroscopy INDICATION: Pain FINDINGS: Fluoroscopy time: 10 seconds. Images obtained: 5. IMPRESSIONS: 1. Documentation of fluoroscopy.
[2021-04-27] MEDS ORDERED: IV FLUID CONTINUATION 800 ML IV ONE (14:46)
== END 2021-04-27 15:01 | disposition home or self-care (01) ==
LOC: ORPAIN 12:51
PROVIDERS: ATTEND Specialist
DX: G89.29 Other chronic pain (principal); M47.816 Spondylosis without myelopathy or radiculopathy, lumbar region; I25.10 Atherosclerotic heart disease of native coronary artery without angina pectoris; I10 Essential (primary) hypertension; E78.5 Hyperlipidemia, unspecified; Z95.0 Presence of cardiac pacemaker; F17.200 Nicotine dependence, unspecified, uncomplicated; Z95.1 Presence of aortocoronary bypass graft; Z95.5 Presence of coronary angioplasty implant and graft; Z98.890 Other specified postprocedural states; Z79.82 Long term (current) use of aspirin; Z79.899 Other long term (current) drug therapy
CPT/HCPCS: 64493; 64494; J2250; J3301; J3010; J2795

== ENCOUNTER → 2021-06-11 | Outpatient (CLI) | payer MEDICARE, OTHER ==
[2021-06-11 12:42] VITALS: BP 136/83; PULSE 68; RESP 18; TEMP 98.7
--- NOTE | 2021-06-11 12:58 | P.PAINPG ---
Subjective Progress Note Date: 06/11/21 Principal diagnosis: Lumbar back pain Mr. Whitaker is a 70 -year-old pleasant male came to the [facility] pain clinic for post procedure evaluation . Patient has ongoing pain for many years. Patient had spinal cord stem later implantation, and explantation for spinal canal stenosis. Patient had bilateral lumbar L4-L5 L5-S1 medial branch blocks done which helped more than 70% to 80% pain relief for 3 weeks duration. Patient describes pain is aching, throbbing, constant type of pain. Pain is radiating to right lower extremity sometimes. Patient rated pain levels are 7 out of 10 in severity. With the help of medications pain levels are 5 out of 10 in severity. Activities making pain worse. Medications, resting, interventional procedures helping in relieving patient's pain. Patient pain some days better than others. Overall activities decreased secondary to pain. Because of the pain sometimes patient is feeling lack of sleep, interest, and energy. Denied any side effects with the medications. Denied any bowel or bladder problems at this time. Patient denies any suicidal or homicidal ideations intent or plan. Patient denies any auditory or visual hallucinations. Patient denied any red flag symptoms related to pain. Objective - Vital Signs Vital signs: Vital Signs Temp 98.7 F 06/11/21 12:24 Pulse 68 06/11/21 12:24 Resp 18 06/11/21 12:24 BP 136/83 06/11/21 12:24 Pulse Ox 96 06/11/21 12:24 - Exam General: Well-developed, well-nourished, no acute distress HEENT: Normocephalic, and atraumatic Neck: Supple, no neck swelling Psychiatric: Appropriate mood, and affect [employer]: No focal neurological deficits Musculoskeletal: Upper extremity: Normal strength, and range of motion. Sensation grossly intact Lower extremity: Normal strength, and decreased range of motion secondary to pain Lumbar spine: Paravertebral tenderness: positive Lumbar facet load test : positive SLR positive Multiple trigger points positive lower lumbar area Sacroiliac joint tenderness: Positive Thigh thrust test: Positive SI joint compression test: Positive Fabere test: Positive - Constitutional Constitutional Comment(s): 13 point review of Systems , and symptoms negative for chest pain, shortness of breath, change in vision, change in weakness, abdominal pain, diarrhea, extreme fatigue, malaise, fever, skin changes, suicidal/homicidal ideas, bowel incontinence or bladder incontinence. Assessment and Plan Assessment: Lumbar spondylosis without myelopathy Lumbar spinal canal stenosis Status post spinal cord stimulator implantation, and explanted Secondly joint dysfunction Myofascial pain syndrome, and chronic pain syndrome Plan: #1 Diagnoses, prognosis, and multiple treatment options including but not limited to physical therapy, interventional therapy, adjunct medication therapy, narcotic medication, and surgical options were discussed with the patient. And all questions were answered to the patient's satisfaction. #2 treatment plan agreement : Patient was thoroughly discussed regarding the treatment options, alternatives, and importance of exercises as tolerated. Patient clearly understood. #3 Patient was counseled on importance of regular exercise. Including cherry chi, aerobic exercises as tolerated. Which helps for chronic pain, and overall well- being. Patient also counseled regarding importance of weight control rolling chronic pain, and overall other health issues. By altering diet habits, minimizing sugar intake, and processed foods helps in minimizing Inflammation. Also discussed with the patient regarding intermittent fasting. Patient counseled regarding smoking associated with chronic pain, worsening inflammation, and smoking effects on liver, and medication metabolism. And encouraged to stop smoking. #4 investigations: MAPS- reviewed , urine drug test- not done #5 diagnostic tests: None #6 consultation : None # 7 interventional procedures: , Bilateral lumbar L4-L5, and L5-S1 medial branch radiofrequency ablation . Procedure, complications, alternatives discussed with the patient. #8 medications None from the pain clinic #9 morphine milligrams equivalents dose ( MME) per day: 0 from the pain clinic. # 10 TENS unit's, and percussion massage device #11 disposition: scheduled to follow up with pain clinic in 4 weeks duration. Time with Patient: Less than 30 PQRS Measure Charge Sheet Measure #130: Documentation of Current Meds in Medical Chart: Patient's medications documented in chart Measure #226: Tobacco Use: Screen & Cessation Intervention: Pt screened for tobacco use AND intervention given Measure #111: Pneumonia Vaccination: Pneumococcal vaccine NOT administered or previously given Measure #47: Advance Care Plan: Advance care planning discussed & documented, pt chose/unable to give Measure #412: Opioid Treatment Agreement: No documentation of signed opioid treatment agreement Measure #408: Opioid Therapy Follow-up Evaluation: Patient had NO f/u eval minimum every 3 months during opioid therapy Measure #317: Preventitive Care & Scrn High Bld Press & F/U: Normal blood pressure, f/u not required Measure #128: Body Mass Index (BMI) Screening & Follow-up: BMI documented within normal parameters Measure #131: Pain Assessment & Follow-up: Pain positive & plan documented Measure #431: Unhealthy Alcohol Use Preventative Care & Scrn: Patient not identified as an unhealthy alcohol user Mode of Arrival: Ambulatory - Pain Location Lower Back Pharmacological Interventions: Medication PQRS Narrative: Smoking Status Current every day smoker Blood Pressure 136/83 Pain Intensity [Lower Back] 5 Scale Used Numeric (1 - 10) Hx Alcohol Use (MH) No Home Medications: Ambulatory Orders lisinopriL [Zestril] 10 mg PO DAILY #30 tab 08/13/16 Atorvastatin [Lipitor] 40 mg PO DAILY 01/07/18 Metoprolol Succinate (ER) [Toprol XL] 25 mg PO DAILY 01/07/18 Aspirin 81 mg PO DAILY #30 chewable 07/17/18 Furosemide [Lasix] 40 mg PO DAILY 02/14/21 Potassium Chloride [K-Tab ER] 20 meq PO DAILY 02/14/21 Sertraline [Zoloft] 50 mg PO DAILY 02/14/21 traZODone HCL [TraZODone HCl] 50 mg PO HS 02/14/21 Controlled Substance Measures - Controlled Substance Measures Is patient prescribed a controlled substance at discharge?: No
== END ==
LOC: PNWHC3 12:16
DX: M47.816 Spondylosis without myelopathy or radiculopathy, lumbar region (principal); M48.061 Spinal stenosis, lumbar region without neurogenic claudication; M79.18 Myalgia, other site; G89.4 Chronic pain syndrome; Z98.890 Other specified postprocedural states; F17.200 Nicotine dependence, unspecified, uncomplicated
CPT/HCPCS: 99211

== ENCOUNTER 2021-07-13 09:33 | Day surgery (SDC) | payer MEDICARE, OTHER ==
[2021-07-09 12:04] VITALS: BMI 25.7
[2021-07-13 10:05] VITALS: TEMP 98.1
[2021-07-13] MEDS: LACTATED RINGERS 1,000 ML IV SCH ×2 (10:05→10:07)
[2021-07-13] MEDS ORDERED: MIDAZOLAM 2 MG/2 ML VIAL ONE (10:09)
[2021-07-13] MEDS ORDERED: fentaNYL (PF) 50 MCG/ML 2 ML AMP ONE (10:09)
[2021-07-13] MEDS ORDERED: methylPREDNISolone ACETATE 40 MG/ML 1 ML VIAL ONE (10:09)
[2021-07-13] MEDS ORDERED: ROPIVACAINE 5MG/ML 20ML VIAL ONE (10:09)
--- NOTE | 2021-07-13 10:49 | P.PCN ---
Date of Procedure: 07/13/21 Procedure(s) Performed: PREOPERATIVE DIAGNOSIS: 1-Lumbar Spondylosis with Facet Arthropathy without myelopathy. 2- Lumber degenerative disc disease POSTOPERATIVE DIAGNOSIS: 1- Lumbar Spondylosis with Facet Arthropathy without myelopathy. 2- Lumber degenerative disc disease PROCEDURES : Bilateral Radiofrequency thermocoagulation, L3 , L4 , and L5 medial branch, with fluoroscopic guidance (fluoroscopy images available in the radiology department) ( to denervate the facet joint at Bilateral L4-5 ,and L5-S1 levels ). ANESTHESIA: Monitered anesthesia care as per anesthesia department . EBL: Minimal PROCEDURE INDICATION: The patient with low back pain secondary to lumbar facet arthropathy who had more than 50% relief of her pain with previous diagnostic lumbar medial branch block with bupivacaine. PROCEDURE DESCRIPTION / TECHNIQUE: The patient was seen and identified in the preoperative area. Risks, benefits, complications, including but not limited to risk of infection ,bleeding , allergic reactions to the medications and no complete pain releife , and alternatives were discussed with the patient, the patient agreed to proceed with the procedure and signed the consent. IV was started. Vital signs remained stable throughout the procedure. Patient was taken to the OR and time out was completed. The patient was placed in the prone position on the procedure table. The lumber area was prepped and draped in the usual sterile fashion. . Vital signs were closely monitored during the procedure .IV sedation was used during the procedure to decrease patients anxiety. Using AP and then oblique fluoroscopy, the ``eye of the Devon dog corres ponding to the connection between the superior and transverse articular processes of right L3, L4, and L5 were identified, marked, and localized with 1% lidocaine. Subsequently, a [id number] radiofrequency cannula with a 10- mm active tip was advanced guided by fluoroscopy to each of the``eyes of the Devon dog at right L3, L4, and L5. Each site then underwent sensory testing at 50 Hz and 0 to 1 volt and motor testing at 2.5 Hz and 0 to 3 volt with local stimulation, but no radicular symptoms down the legs. Thereafter each sites underwent radiofrequency thermocoagulation at 80 degrees celsius for 90 seconds after injecting 0.5 ml of PF Ropivacaine 1ml, then after the thermocoagulation done , 1 ml of the block solution containing Depo-Medrol 20 mg and 3 ml of Ropivacaine 0.5% was injected at the right L3 , L4 , and L5 , levels after negative aspiration of CSF and blood and with no paresthesias. Cannulas were retracted while injecting lidocaine 1% until the needle is out. The same procedure was repeated at the level of Left L3, L4, and L5 levels. At the end of the procedure, the skin was cleansed and bandages were applied. COMPLICATIONS: No acute complications. DISPOSITION / PLANS: The patient was placed in a supine position and transferred to the recovery area in a stable condition for observation and was discharged from the recovery room after meeting discharge criteria. Home discharge instructions given to the patient by the staff. The patient was reexamined prior to discharge. The patient will schedule a follow up in the clinic in 2-4 weeks.
[2021-07-13] MEDS ORDERED: IV FLUID CONTINUATION 1,000 ML IV ONE (10:59)
[2021-07-13 11:28] VITALS: BP 153/76; PULSE 70; RESP 20
--- NOTE | 2021-07-13 12:23 | FL ---
Fluoroscopy INDICATION: Pain FINDINGS: Fluoroscopy time: 17 seconds. Images obtained: 6. IMPRESSIONS: 1. Documentation of fluoroscopy.
== END 2021-07-13 11:24 | disposition home or self-care (01) ==
LOC: ORPAIN 09:33
PROVIDERS: ATTEND Specialist
DX: M47.816 Spondylosis without myelopathy or radiculopathy, lumbar region (principal)
CPT/HCPCS: 64635; 64636; J2250; J1030; J3010; J2795

== ENCOUNTER → 2021-08-06 | Outpatient (CLI) | payer MEDICARE, OTHER ==
--- NOTE | 2021-08-06 14:07 | P.PN ---
Subjective Progress Note Date: 08/06/21 Principal diagnosis: A 70 yr old male with a history of severe and chronic low back pain secondary to lumbar degenerative disc diseases and lumbar spondylosis with facet arthropathy presents today for evaluation status post lumbar RFA. Patient states he experienced 70% pain relief with the procedure. Pain level is currently at 2-3 out of 10 in intensity, dull and achy but only exacerbated with physical activity. Pain is provoked with cold weather. Pain is alleviated with medications, topicals, injections, heat, home-based stretching regimen, massage and rest. Interventional pain procedures completed include bilateral lumbar RFA Patient is currently on Tylenol OTC Patient denies any side effects of the medication(s), denies excessive drowsiness or sleepiness, denies suicidal ideation and reports that the current pain medication is helping to control the pain and improve activities of daily living. Patient denies any motor or sensory deficits. Patient denies any fever or night sweats, denies any change in the bowel movements or urination. Physical Examination: -Constitutional: Cooperative. Not in acute distress . -HEENT: Neck is supple. No lymphadenopathy. No thyromegaly. Normal thyroid size. Eyes: No ptosis , no icterus, no photophobia. ENT: No auditory deficits. Normal oropharynx. No Thrush. - Respiratory: Chest clear to auscultations bilaterally. No wheezing. No rhonchi. - Cardiovascular: Regular rate and rhythm. S1 / S2 , no S3 , no S4. - Gastrointestinal: Abdomen soft no tenderness. Bowel sounds positive in all four quadrants. No organomegaly. - Genitourinary: Deferred. - Neurologic: Cranial nerve II to XII intact. No focal neurological deficits. - Psychatric: Alert & oriented x 3. Matching mood & appropriate affect. Judgment and insight intact. - Lymphatic: No Lymphadenopathy. - Musculoskeletal: Cervical spine: Muscle bulk/ tone/ strength in the bilateral upper extremities normal. Facet loading test cervical area positive. Lumbar spine: Motor bulk/ tone/ strength lower extremities , thigh and legs : 5/5 Deep tendon reflexes : Normal Knee Jerk. Normal Ankle Jerk . Mild vertebral body tenderness to deep palpation of the L4 and L5 Lumbar Facet Loading Test positive Straight Leg Raise: positive at 30 degree right side/ left side Letitia test: positive right side / left side Range of motion: Range of motion in flexion of the lumbar spine <60 degrees Range of motion: Extension of the lumbar spine <20 degrees Severe tenderness over the Sacroiliac joint: right side / left side Assessment and plan: Chronic low back pain secondary to lumbar degenerative disc disease , lumbar spondylosis with facet arthropathy without myelopathy Patient may return to office on an as-needed basis All patient questions answered MAPS reviewed and it was appropriate. I have spent 31 minutes on patient care today. Dr Shankar was available by phone for the evaluation of this patient. The time was used to review the medical records including relevant urine studies and Prescription history (MAPs), review of the available imaging, evaluation and examination of the patient, coordination of care with the medical staff and if applicable referring physicians, as well as creation of the medical record PQRS Measure Charge Sheet Mode of Arrival: Ambulatory - Pain Location Lower Back Non-Pharmacological Interventions: Home Exercise Pharmacological Interventions: PRN Medication PQRS Narrative: Smoking Status Current every day smoker Pain Intensity [Lower Back] 4 Scale Used Numeric (1 - 10) Hx Alcohol Use (MH) No Home Medications: Ambulatory Orders Atorvastatin [Lipitor] 40 mg PO DAILY 01/07/18 Metoprolol Succinate (ER) [Toprol XL] 25 mg PO QAM 01/07/18 Aspirin 81 mg PO DAILY #30 chewable 07/17/18 Potassium Chloride [K-Tab ER] 20 meq PO DAILY 02/14/21 Sertraline [Zoloft] 50 mg PO DAILY 02/14/21 traZODone HCL [TraZODone HCl] 50 mg PO HS 02/14/21 Ibuprofen [Motrin] 600 mg PO Q8HR PRN 30 Days #90 tab 07/13/21 lisinopriL [Zestril] 10 mg PO HS 08/02/21
[2021-08-06 14:11] VITALS: BP 138/77; PULSE 86; RESP 18; TEMP 98.3
== END ==
LOC: PNWHC3 13:24
PROVIDERS: ATTEND Physician Assistant Medical
DX: M51.36 Other intervertebral disc degeneration, lumbar region (principal); M47.816 Spondylosis without myelopathy or radiculopathy, lumbar region; G89.29 Other chronic pain; F17.200 Nicotine dependence, unspecified, uncomplicated
CPT/HCPCS: 99211

== ENCOUNTER → 2022-01-09 | Outpatient (CLI) | payer MEDICARE, OTHER ==
[2022-01-09 08:22] VITALS: BP 106/71; PULSE 75; RESP 18; TEMP 98
--- NOTE | 2022-01-09 08:30 | P.PAINPG ---
Objective - Vital Signs Vital signs: Intake & Output 01/08/22 01/09/22 01/09/22 18:59 06:59 18:59 Weight 81.647 kg PQRS Measure Charge Sheet Comment: A 71 yr old male with a history of severe and chronic low back pain secondary to lumbar degenerative disc diseases and lumbar spondylosis with facet arthropathy presents today for LBP. Pain level is currently at 5/10 in intensity, intermittent, sharp/ throbbing pain in character with radiation down RLE. Pain has unknown provocative factors but he always feels it when standing for periods of 20 min or more. Pain is alleviated with PT in 2020 for 6 mo, use of a massage gun at home, medications (Suboxone), heat, repositioning and rest. Interventional pain procedures completed include BL RFA L3-L5 Patient is currently on Suboxone Patient denies any side effects of the medication(s), denies excessive rema wsiness or sleepiness, denies suicidal ideation and reports that the current pain medication is helping to control the pain and improve activities of daily living. Patient denies any motor or sensory deficits. Patient denies any fever or night sweats, denies any change in the bowel movements or urination. Physical Examination: -Constitutional: Cooperative. Not in acute distress . - Neurologic: Cranial nerve II to XII intact. No focal neurological deficits. - Psychatric: Alert & oriented x 3. Matching mood & appropriate affect. Judgment and insight intact. - Musculoskeletal: Cervical spine: Muscle bulk/ tone/ strength in the bilateral upper extremities normal Vertebral body tenderness to palpation over Spurling test positive Distraction test positive Facet loading test positive Thoracic spine Muscle bulk / tone/ strength in the bilateral paraspinal muscles normal Vertebral body tender to palpation over Facet loading test positive Lumbar spine: Motor bulk/ tone/ strength lower extremities , thigh and legs : 5/5 Deep tendon reflexes : Normal Knee Jerk. Normal Ankle Jerk . Vertebral body tenderness to palpation over Lumbar Facet Loading Test positive BL L4-L5, L5-S1 with R paraspinal TTP Straight Leg Raise: positive at 30 degrees right side/ left side Gaenslen's Test positive Sacral spine : Severe tenderness over the Sacroiliac joint: right side / left side Range of motion: Flexion of the lumbar spine <60 degrees Range of motion: Extension of the lumbar spine <20 degrees Gaenslen's Test positive Dale's Test positive Letitia test: positive right side / left side Thigh Thrust Test Sacral Thrust Test Assessment and plan: Chronic low back pain secondary to lumbar degenerative disc disease , lumbar spondylosis with facet arthropathy without myelopathy Recommendation of BL RFA L4-L5, L5-S1. Risks, benefits of procedure discussed and pt verbalized understanding. Admits to ASA use and denies medical history of diabetes. Protocol for discontinuation/ continuation of medications jimenez procedure. All patient questions answered MAPS reviewed and it was appropriate. I have spent less than 30 minutes on patient care today. Dr Shankar was available by phone for the evaluation of this patient. The time was used to review the medical records including relevant urine studies and Prescription history (MAPs), review of the available imaging, evaluation and examination of the patient, coordination of care with the medical staff and if applicable referring physicians, as well as creation of the medical record - Pain Location Bilateral Lower Back Non-Pharmacological Interventions: Heat, Massage, Physical Therapy Pharmacological Interventions: Block, Epidural, Medication, Topical Medication PQRS Narrative: Smoking Status Current every day smoker Hx Alcohol Use (MH) No Home Medications: Ambulatory Orders Atorvastatin [Lipitor] 40 mg PO DAILY 01/07/18 Metoprolol Succinate (ER) [Toprol XL] 25 mg PO QAM 01/07/18 Aspirin 81 mg PO DAILY #30 chewable 07/17/18 Potassium Chloride [K-Tab ER] 20 meq PO DAILY 02/14/21 Sertraline [Zoloft] 50 mg PO DAILY 02/14/21 traZODone HCL [TraZODone HCl] 50 mg PO HS 02/14/21 Ibuprofen [Motrin] 600 mg PO Q8HR PRN 30 Days #90 tab 07/13/21 lisinopriL [Zestril] 10 mg PO HS 08/02/21 Controlled Substance Measures - Controlled Substance Measures Is patient prescribed a controlled substance at discharge?: No
== END ==
LOC: PNWHC3 07:52
PROVIDERS: ATTEND Specialist
DX: M51.36 Other intervertebral disc degeneration, lumbar region (principal); M47.816 Spondylosis without myelopathy or radiculopathy, lumbar region; G89.29 Other chronic pain; F17.200 Nicotine dependence, unspecified, uncomplicated
CPT/HCPCS: 99211

== ENCOUNTER 2022-01-25 07:00 | Day surgery (SDC) | payer MEDICARE, OTHER ==
[2022-01-24 08:27] VITALS: BMI 27.1
[~2022-01-25 07:00] MED LIST changes: +LIDOCAINE 1% (10MG/ML) FOR IV START INTRADERMA PRN
[2022-01-25 07:31] VITALS: TEMP 98
[2022-01-25] MEDS ORDERED: ROPIVACAINE 5MG/ML 20ML VIAL ONE (07:42)
[2022-01-25] MEDS ORDERED: fentaNYL (PF) 50 MCG/ML 2 ML AMP ONE (07:42)
[2022-01-25] MEDS ORDERED: methylPREDNISolone ACETATE 40 MG/ML 1 ML VIAL ONE (07:42)
[2022-01-25] MEDS ORDERED: MIDAZOLAM 2 MG/2 ML VIAL ONE (07:42)
--- NOTE | 2022-01-25 08:08 | P.PCN ---
Date of Procedure: 01/25/22 Procedure(s) Performed: PREOPERATIVE DIAGNOSIS: 1-Lumbar Spondylosis with Facet Arthropathy without myelopathy. 2- Lumber degenerative disc disease POSTOPERATIVE DIAGNOSIS: 1- Lumbar Spondylosis with Facet Arthropathy without myelopathy. 2- Lumber degenerative disc disease PROCEDURES : Bilateral Radiofrequency thermocoagulation, L3 , L4 , and L5 medial branch, with fluoroscopic guidance (fluoroscopy images available in the radiology department) ( to denervate the facet joint at Bilateral L4-5 ,and L5-S1 levels ). ANESTHESIA: Monitered anesthesia care as per anesthesia department . EBL: Minimal PROCEDURE INDICATION: The patient with low back pain secondary to lumbar facet arthropathy who had more than 50% relief of her pain with previous diagnostic lumbar medial branch block with bupivacaine. PROCEDURE DESCRIPTION / TECHNIQUE: The patient was seen and identified in the preoperative area. Risks, benefits, complications, including but not limited to risk of infection ,bleeding , allergic reactions to the medications and no complete pain releife , and alternatives were discussed with the patient, the patient agreed to proceed with the procedure and signed the consent. IV was started. Vital signs remained stable throughout the procedure. Patient was taken to the OR and time out was completed. The patient was placed in the prone position on the procedure table. The lumber area was prepped and draped in the usual sterile fashion. . Vital signs were closely monitored during the procedure .IV sedation was used during the procedure to decrease patients anxiety. Using AP and then oblique fluoroscopy, the ``eye of the Devon dog corres ponding to the connection between the superior and transverse articular processes of right L3, L4, and L5 were identified, marked, and localized with 1% lidocaine. Subsequently, a 18 -qb radiofrequency cannula with a 10- mm active tip was advanced guided by fluoroscopy to each of the``eyes of the [place] dog at right L3, L4, and L5. Each site then underwent sensory testing at 50 Hz and 0 to 1 volt and motor testing at 2.5 Hz and 0 to 3 volt with local stimulation, but no radicular symptoms down the legs. Thereafter each sites underwent radiofrequency thermocoagulation at 80 degrees celsius for 90 seconds after injecting 0.5 ml of PF Ropivacaine 1ml, then after the thermocoagulation done , 1 ml of the block solution containing Depo-Medrol 20 mg and 3 ml of Ropivacaine 0.5% was injected at the right L3 , L4 , and L5 , levels after negative aspiration of CSF and blood and with no paresthesias. Cannulas were retracted while injecting lidocaine 1% until the needle is out. The same procedure was repeated at the level of Left L3, L4, and L5 levels. At the end of the procedure, the skin was cleansed and bandages were applied. COMPLICATIONS: No acute complications. DISPOSITION / PLANS: The patient was placed in a supine position and transferred to the recovery area in a stable condition for observation and was discharged from the recovery room after meeting discharge criteria. Home discharge instructions given to the patient by the staff. The patient was reexamined prior to discharge. The patient will schedule a follow up in the clinic in 2-4 weeks.
[2022-01-25] MEDS ORDERED: IV FLUID CONTINUATION 900 ML IV ONE (08:13)
[2022-01-25 08:34] VITALS: BP 125/59; PULSE 71; RESP 16
--- NOTE | 2022-01-25 08:35 | FL ---
Fluoroscopy INDICATION: Pain FINDINGS: Fluoroscopy time: 15 seconds. Images obtained: 6. IMPRESSIONS: 1. Documentation of fluoroscopy.
== END 2022-01-25 09:06 | disposition home or self-care (01) ==
LOC: ORPAIN 07:00
PROVIDERS: ATTEND Specialist
DX: M47.816 Spondylosis without myelopathy or radiculopathy, lumbar region (principal); M51.36 Other intervertebral disc degeneration, lumbar region; I10 Essential (primary) hypertension; E78.5 Hyperlipidemia, unspecified; I25.2 Old myocardial infarction; I71.4 Abdominal aortic aneurysm, without rupture; I25.10 Atherosclerotic heart disease of native coronary artery without angina pectoris; Z95.810 Presence of automatic (implantable) cardiac defibrillator; Z95.5 Presence of coronary angioplasty implant and graft; F17.200 Nicotine dependence, unspecified, uncomplicated; Z79.82 Long term (current) use of aspirin; Z79.899 Other long term (current) drug therapy; Z80.9 Family history of malignant neoplasm, unspecified; Z82.49 Family history of ischemic heart disease and other diseases of the circulatory system
CPT/HCPCS: 64635; 64636 ×2; J2250; J1030; J3010; J2795

== ENCOUNTER → 2022-03-18 | Outpatient (CLI) | payer MEDICARE, OTHER ==
[2022-03-18 15:00] VITALS: BP 119/75; PULSE 62; RESP 18; TEMP 98.5
--- NOTE | 2022-03-18 15:16 | P.PAINPG ---
PQRS Measure Charge Sheet Comment: A 71 yr old male with a history of severe and chronic low back pain secondary to lumbar degenerative disc diseases and lumbar spondylosis with facet arthropathy without myelopathy presents today for evaluation s/p BL RFA L3-L5. Pt states he experienced 20% pain relief s/p procedure. Pain level is currently at 6/10 in intensity, constant, burning/ sharp in character w shooting towards the R groin. Pain is provoked by activity. Pain is alleviated with heat, topicals, home massage, repositioning, laying supine and rest. Interventional pain procedures completed include BL RFA L3-5. Patient is currently on topicals Patient denies any side effects of the medication(s), denies excessive drowsiness or sleepiness, denies suicidal ideation and reports that the current pain medication is helping to control the pain and improve activities of daily living. Patient denies any motor or sensory deficits. Patient denies any fever or night sweats, denies any change in the bowel movements or urination. Physical Examination: -Constitutional: Cooperative. Not in acute distress . - Neurologic: Cranial nerve II to XII intact. No focal neurological deficits. - Psychatric: Alert & oriented x 3. Matching mood & appropriate affect. Judgment and insight intact. - Musculoskeletal: Cervical spine: Muscle bulk/ tone/ strength in the bilateral upper extremities normal Vertebral body tenderness to palpation over Spurling test positive Distraction test positive Facet loading test positive Thoracic spine Muscle bulk / tone/ strength in the bilateral paraspinal muscles normal Vertebral body tender to palpation over Facet loading test positive Lumbar spine: Motor bulk/ tone/ strength lower extremities , thigh and legs : 5/5 Deep tendon reflexes : Normal Knee Jerk. Normal Ankle Jerk . Vertebral body tenderness to palpation over L5 Lumbar Facet Loading Test positive Straight Leg Raise: positive at 30 degrees right side/ left side Gaenslen's Test positive Sacral spine : Severe tenderness over the Sacroiliac joint: right side / left side Range of motion: Flexion of the lumbar spine <60 degrees Range of motion: Extension of the lumbar spine <20 degrees Gaenslen's Test positive Dale's Test positive Letitia test: positive right side / left side Thigh Thrust Test Sacral Thrust Test Assessment and plan: Chronic low back pain secondary to lumbar degenerative disc disease , lumbar spondylosis with facet arthropathy without myelopathy Recommendation of JENNIFER L5-S1. May need a series of injections, upto 3 with in a 6 mo period, for optimal pain relief. Risks, benefits of procedure discussed and pt verbalized understanding. Denies anticoagulant use or medical history of diabetes. All patient questions answered MAPS reviewed and it was appropriate. I have spent less than 30 minutes on patient care today. Dr Shankar was available by phone for the evaluation of this patient. The time was used to review the medical records including relevant urine studies and Prescription history (MAPs), review of the available imaging, evaluation and examination of the patient, coordination of care with the medical staff and if applicable referring physicians, as well as creation of the medical record PQRS Narrative: Smoking Status Current every day smoker Hx Alcohol Use (MH) No Home Medications: Ambulatory Orders Atorvastatin [Lipitor] 40 mg PO DAILY 01/07/18 Metoprolol Succinate (ER) [Toprol XL] 25 mg PO QAM 01/07/18 Aspirin 81 mg PO DAILY #30 chewable 07/17/18 Potassium Chloride [K-Tab ER] 20 meq PO DAILY 02/14/21 Sertraline [Zoloft] 50 mg PO DAILY 02/14/21 traZODone HCL [TraZODone HCl] 50 mg PO HS 02/14/21 Ibuprofen [Motrin] 600 mg PO Q8HR PRN 30 Days #90 tab 07/13/21 lisinopriL [Zestril] 10 mg PO HS 08/02/21 Controlled Substance Measures - Controlled Substance Measures Is patient prescribed a controlled substance at discharge?: No
== END ==
LOC: PNWHC3 13:23
PROVIDERS: ATTEND Specialist
DX: M47.816 Spondylosis without myelopathy or radiculopathy, lumbar region (principal); M51.36 Other intervertebral disc degeneration, lumbar region; G89.29 Other chronic pain; F17.200 Nicotine dependence, unspecified, uncomplicated
CPT/HCPCS: 99211

== ENCOUNTER 2022-04-20 22:26 | Inpatient (IN) | payer MEDICARE, OTHER ==
[2022-04-20] MEDS ORDERED: LORazepam 2 MG/ML INJ IV STA (22:51)
[2022-04-20] MEDS ORDERED: HYDROmorphone 1 MG/ML 1 ML SYRINGE IVP STA (22:51)
[2022-04-20] MEDS ORDERED: HEPARIN SODIUM 1,000 UN/ML (10ML VL) IV PRN (22:51)
--- NOTE | 2022-04-20 22:51 | ED ---
Chest Pain HPI - General Chief Complaint: Chest Pain Stated Complaint: chest pain Time Seen by Provider: 04/20/22 22:45 Source: patient, RN/MD, EMS, RN notes reviewed, old records reviewed Mode of arrival: EMS Limitations: no limitations - History of Present Illness Initial Comments: This is a 71-year-old male to the emergency department for evaluation patient presents today for evaluation regards to elevated [place] history of CABG persistent chest pain. Patient is accepted in transfer for evaluation of non-ST elevated [place] and cardiology to see MD Complaint: chest pain -: hour(s) Onset: during rest Pain Location: substernal Severity: moderate Severity scale (1-10): 7 Quality: heaviness, sharp Consistency: constant Improves With: nothing Worsens With: nothing Anginal Symptoms: sense of impending doom Other Symptoms: palpitations Treatments Prior to Arrival: aspirin, nitroglycerin - Related Data Home Medications Medication Instructions Recorded Confirmed Atorvastatin [Lipitor] 40 mg PO DAILY 01/07/18 01/24/22 Metoprolol Succinate (ER) [Toprol 25 mg PO QAM 01/07/18 01/25/22 XL] Potassium Chloride [K-Tab ER] 20 meq PO DAILY 02/14/21 01/24/22 Sertraline [Zoloft] 50 mg PO DAILY 02/14/21 01/24/22 traZODone HCL [TraZODone HCl] 50 mg PO HS 02/14/21 01/24/22 lisinopriL [Zestril] 10 mg PO HS 08/02/21 01/24/22 Previous Rx's Medication Instructions Recorded Aspirin 81 mg PO DAILY #30 chewable 07/17/18 Ibuprofen [Motrin] 600 mg PO Q8HR PRN 30 Days #90 tab 07/13/21 Allergies Allergy/AdvReac Type Severity Reaction Status Date / Time No Known Allergies Allergy Verified 01/25/22 07:25 Review of Systems ROS Statement: Those systems with pertinent positive or pertinent negative responses have been documented in the HPI. ROS Other: All systems not noted in ROS Statement are negative. 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 COVID booster J&J Apr 2021 Last Myocardial Infarction Date:: 1989 History of Any Multi-Drug Resistant Organisms: None Reported Past Surgical History: AICD, Coronary Bypass/CABG, Heart Catheterization With Stent, Hernia Repair, Pacemaker Additional Past Surgical History / Comment(s): CABG 4 vessel 1989, spinal stenosis stimlator/later removed, bilateral cataracts, at least 8 cardiac stents, aneursym in carotid artery-repaired. PAIN CLINIC PROCEDURES Past Anesthesia/Blood Transfusion Reactions: No Reported Reaction Date of Last Stent Placement:: 12/17/18 Type of Cardiac Device: Permanent Pacemaker, AICD Device Placement Date:: DECEMBER 2017 [employer] Past Psychological History: No Psychological Hx Reported Smoking Status: Current every day smoker Past Alcohol Use History: None Reported Past Drug Use History: None Reported - Past Family History Father Family Medical History: Myocardial Infarction ([place]) Mother Family Medical History: Myocardial Infarction ([place]) Brother(s) Family Medical History: Cancer Sister(s) Additional Family Medical History / Comment(s): CABG 3-vessel General Exam Limitations: no limitations General appearance: alert, in no apparent distress Head exam: Present: atraumatic, normocephalic, normal inspection Eye exam: Present: normal appearance, PERRL, EOMI. Absent: scleral icterus, conjunctival injection, periorbital swelling ENT exam: Present: normal exam, mucous membranes moist Neck exam: Present: normal inspection. Absent: tenderness, meningismus, lymphadenopathy Respiratory exam: Present: normal lung sounds bilaterally. Absent: respiratory distress, wheezes, rales, rhonchi, stridor Cardiovascular Exam: Present: regular rate, normal rhythm, normal heart sounds. Absent: systolic murmur, diastolic murmur, rubs, gallop, clicks GI/Abdominal exam: Present: soft, normal bowel sounds. Absent: distended, tenderness, guarding, rebound, rigid Extremities exam: Present: normal inspection, full ROM, normal capillary refill. Absent: tenderness, pedal edema, joint swelling, calf tenderness Back exam: Present: normal inspection Neurological exam: Present: alert, oriented X3, CN II-XII intact Psychiatric exam: Present: normal affect, normal mood Skin exam: Present: warm, dry, intact, normal color. Absent: rash Course Vital Signs 04/20/22 04/20/22 22:29 22:47 Temperature 97.9 F Pulse Rate 64 Pulse Rate [ 64 [employer] ] Respiratory 18 Rate Blood Pressure 159/75 O2 Sat by Pulse 99 Oximetry - Reevaluation(s) Reevaluation #1: 04/20/22 23:05 medicla record is reviewed Reevaluation #2: 04/20/22 23:05 transfer paperwork is reviewed - Consultations Consultation #1: Spoke with [facility] were agreed to admit this patient Chest Pain MDM - MDM 71 male accepted in transfer for chest pain, history of heart disease with CABG. Mildly elevated troponin increasing level of troponin. Patient. We will admit for cardiac evaluation Critical Care Time Critical Care Time: Yes Total Critical Care Time: 31 Disposition Clinical Impression: Acute non-ST elevation myocardial infarction (NSTEMI), Hx of CABG, Unstable angina pectoris Disposition: ADMITTED IP TO THIS HOSP Condition: Serious Is patient prescribed a controlled substance at d/c from ED?: No Referrals: Mily Salcedo NPC [Family Provider] - 1-2 days
[2022-04-20] MEDS: HEPARIN SOD,PORK IN 0.45% NACL 25,000 UNIT in 0.45% NACL 1 250ML.BAG IV SCH (23:12)
[2022-04-21] MEDS ORDERED: NITROGLYCERIN SL TABS 0.4 MG TAB SUBLINGUAL PRN (02:09)
[2022-04-21 06:18] LABS: Prothrombin Time 10.8 sec (9.0-12.0)
--- NOTE | 2022-04-21 07:23 | P.HPIM ---
History of Present Illness This is a pleasant 71 years old male with multiple medical problems as below. Patient was transferred from [facility]. Presents because of chest pain. He is a patient of Dr. Colunga Patient presents because of chest pain which she hasn't for 2-4 days, was on an pretty severe but when he came in it was [id number], its and anterior chest radiating to the left side felt like sharp NOT associated or increased by coughing. Also patient reports some shortness of breath with it at rest or with exertion. No GI urinary or neurological symptoms, no vomiting diarrhea or abdominal pain, no dysuria or urgency, no headache weakness numbness or dizziness. He smokes about 10 cigarettes per day and he was counseled to quit but he declines the nicotine patch. No alcohol or illicit drugs. Patient says that he was doing fine until lately he started smoking again after some stress events happening with his daughter. Patient has history of heart disease and has been, with 8-10 stents before react press tender incendiary grenade is Dr. Stevenson Vitals are stable. Patient is afebrile. Pressure is controlled. INR 1.0 0.11 Currently patient is on heparin drip and aspirin 325 mg and press tender incendiary grenade this consulted already When we checked [facility] documents patient WBC is 8.6, hemoglobin 14.1, platelet count 216. ProBNP 5-7. Troponin 0.03 and 0.05. Potassium 4, sodium 139, creatinine normal 0.9. AST 22, ALT 21, bilirubin 0.5. INR 0.9. Covid negative Review of Systems Review of systems CONSTITUTIONAL: No fever, no malaise, no fatigue. HEENT: No recent visual problems or hearing problems. Denied any sore throat. CARDIOVASCULAR: No orthopnea, PND, no palpitations, no syncope. PULMONARY: No shortness of breath, no cough, no hemoptysis. GASTROINTESTINAL: No diarrhea, no nausea, no vomiting, no abdominal pain. Normoactive bowel sounds. NEUROLOGICAL: No headaches, no weakness, no numbness. HEMATOLOGICAL: Denies any bleeding or petechiae. GENITOURINARY: Denies any burning micturition, frequency, or urgency. MUSCULOSKELETAL/RHEUMATOLOGICAL: Denies any joint pain, swelling, or any muscle pain. ENDOCRINE: Denies any polyuria or polydipsia. 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 COVID booster J&J Apr 2021 Last Myocardial Infarction Date:: 1989 History of Any Multi-Drug Resistant Organisms: None Reported Past Surgical History: AICD, Coronary Bypass/CABG, Heart Catheterization With Stent, Hernia Repair, Pacemaker Additional Past Surgical History / Comment(s): CABG 4 vessel 1989, spinal stenosis stimlator/later removed, bilateral cataracts, at least 8 cardiac stents, aneursym in carotid artery-repaired. PAIN CLINIC PROCEDURES Past Anesthesia/Blood Transfusion Reactions: No Reported Reaction Date of Last Stent Placement:: 12/17/18 Type of Cardiac Device: Permanent Pacemaker, AICD Device Placement Date:: DECEMBER 2017 [employer] Past Psychological History: No Psychological Hx Reported Smoking Status: Current every day smoker Past Alcohol Use History: None Reported Past Drug Use History: None Reported - Past Family History Father Family Medical History: Myocardial Infarction ([place]) Mother Family Medical History: Myocardial Infarction ([place]) Brother(s) Family Medical History: Cancer Sister(s) Additional Family Medical History / Comment(s): CABG 3-vessel Medications and Allergies Home Medications Medication Instructions Recorded Confirmed Type Atorvastatin [Lipitor] 40 mg PO DAILY 01/07/18 01/24/22 History Metoprolol Succinate (ER) [Toprol 25 mg PO QAM 01/07/18 01/25/22 History XL] Aspirin 81 mg PO DAILY #30 chewable 07/17/18 01/24/22 Rx Potassium Chloride [K-Tab ER] 20 meq PO DAILY 02/14/21 01/24/22 History Sertraline [Zoloft] 50 mg PO DAILY 02/14/21 01/24/22 History traZODone HCL [TraZODone HCl] 50 mg PO HS 02/14/21 01/24/22 History Ibuprofen [Motrin] 600 mg PO Q8HR PRN 30 Days #90 tab 07/13/21 01/24/22 Rx lisinopriL [Zestril] 10 mg PO HS 08/02/21 01/24/22 History Allergies Allergy/AdvReac Type Severity Reaction Status Date / Time No Known Allergies Allergy Verified 01/25/22 07:25 Physical Exam Vitals: Vital Signs Temp Pulse Pulse Resp BP Pulse Ox 04/21/22 05:45 55 L 18 119/74 95 04/21/22 00:00 71 16 122/61 98 04/20/22 23:36 68 16 109/72 98 04/20/22 22:47 64 04/20/22 22:29 97.9 F 64 18 159/75 99 Intake and Output 04/20/22 04/20/22 04/21/22 14:59 22:59 06:59 Other: Weight 81.647 kg GENERAL: The patient is alert and oriented x3, not in any acute distress. Well developed, well nourished. HEENT: Pupils are round and equally reacting to light. EOMI. No scleral icterus. No conjunctival pallor. Normocephalic, atraumatic. No pharyngeal erythema. No thyromegaly. CARDIOVASCULAR: S1 and S2 present. No murmurs, rubs, or gallops. PULMONARY: Chest is clear to auscultation, no wheezing or crackles. ABDOMEN: Soft, nontender, nondistended, normoactive bowel sounds. No palpable organomegaly. MUSCULOSKELETAL: No joint swelling or deformity. EXTREMITIES: No cyanosis, clubbing, or pedal edema. NEUROLOGICAL: Gross neurological examination did not reveal any focal deficits. SKIN: No rashes. no petechiae. Results Labs: Abnormal Lab Results - Last 24 Hours (Table) 04/20/22 04/21/22 Range/Units 22:45 03:27 APTT 45.9 H (22.0-30.0) sec Troponin I 0.116 H* (0.000-0.034) ng/mL Assessment and Plan Assessment: Chest pain with elevated troponin suspicious for non-STEMI Nicotine dependence Stress for life with family and daughter Hypertension Hyperlipidemia History of depression History of coronary artery disease, status post stenting. Status post CABG. Status post AICD and pacemaker History of osteoarthritis Chronic back pain Plan: This is a pleasant 71 years old male who presents because of chest pain Continue with aspirin Cardiology consult continue with heparin drip Labs and medication were reviewed.. Continue same treatment. Continue with symptomatic treatment. Resume home medication. Monitor lytes and vitals. DVT and GI prophylaxis. Further recommendations as per clinical course of the patient DVT prophylaxis: heparin GI Prophylaxis: Pepcid Prognosis is guarded
[2022-04-21] MEDS: HYDROmorphone 1 MG/ML 1 ML SYRINGE IVP PRN ×3 (08:37→20:32)
[2022-04-21] MEDS: FAMOTIDINE 20 MG/2 ML VIAL IV SCH ×2 (08:42→20:32)
[2022-04-21] MEDS: LORazepam 2 MG/ML INJ IV PRN (14:29)
[2022-04-21] MEDS: ATORVASTATIN 40 MG TAB PO SCH (14:29)
--- NOTE | 2022-04-21 14:47 | P.CRDCN ---
History of Present Illness Consult date: 04/21/22 History of present illness: Patient has a known history of coronary artery disease status post CABG, ischemic cardiomyopathy status post AICD, carotid stenosis status post carotid endarterectomy who has been transferred here from [place]. Patient follows with Dr. Hernandez in the office. Patient presented to [place] with complaints of chest pain that had been intermittent for the past 2-3 days on the left side of his chest was accompanied by shortness of breath. Last about 10 minutes. He reports of PE. Drink hot foods that seem to relieve the pain. We have been consult to see the patient for N STEMI. His initial troponins were 0.191, second was 0.116. His EKG shows him a paced on the monitor. Patient has been started on heparin drip. We'll obtain a 2-D echocardiogram. Patient is on aspirin, Lipitor, Toprol. Will obtain a CBC and BMP in the morning. Will keep patient nothing by mouth at midnight. Will review 2-D echocardiogram patient may require cardiac catheterization tomorrow. Review of Systems REVIEW OF SYSTEMS At the time of my exam: CONSTITUTIONAL: Denies fever or chills. EYES: Negative for vision changes ENT: Negative for hearing loss CARDIOVASCULAR: Reports chest pain Denies , shortness of breath, diaphoresis, orthopnea, PND or palpitations. VASCULAR: Denies edema RESPIRATORY: Denies cough. GASTROINTESTINAL: Denies abdominal pain, diarrhea, constipation, nausea or vomiting. MUSCULOSKELETAL: Denies myalgias. NEUROLOGIC: Denies numbness, tingling, headache or weakness. ENDOCRINE: Denies fatigue, weight change, polydipsia or polyurina. GENITOURINARY: Denies burning, hematuria or urgency with micturation. HEMATOLOGIC: Denies history of anemia or bleeding. DERMATOLOGY: Denies rash or skin sores PSYCH: Negative for depression or hallucinations. 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 COVID booster J&J Apr 2021 Last Myocardial Infarction Date:: 1989 History of Any Multi-Drug Resistant Organisms: None Reported Past Surgical History: AICD, Coronary Bypass/CABG, Heart Catheterization With Stent, Hernia Repair, Pacemaker Additional Past Surgical History / Comment(s): CABG 4 vessel 1990, spinal stenosis stimlator/later removed, bilateral cataracts, at least 8 cardiac stents, aneursym in carotid artery-repaired. PAIN CLINIC PROCEDURES Past Anesthesia/Blood Transfusion Reactions: No Reported Reaction Date of Last Stent Placement:: 12/17/18 Type of Cardiac Device: Permanent Pacemaker, AICD Device Placement Date:: DECEMBER 2017 [employer] Past Psychological History: No Psychological Hx Reported Smoking Status: Current every day smoker Past Alcohol Use History: None Reported Past Drug Use History: None Reported - Past Family History Father Family Medical History: Myocardial Infarction (SD) Mother Family Medical History: Myocardial Infarction (SD) Brother(s) Family Medical History: Cancer Sister(s) Additional Family Medical History / Comment(s): CABG 3-vessel Medications and Allergies Home Medications Medication Instructions Recorded Confirmed Type Atorvastatin [Lipitor] 40 mg PO DAILY 01/07/18 04/21/22 History lisinopriL [Prinivil] 20 mg PO DAILY 04/21/22 04/21/22 History Allergies Allergy/AdvReac Type Severity Reaction Status Date / Time No Known Allergies Allergy Verified 04/21/22 11:08 Physical Exam Vitals: Vital Signs Temp Pulse Pulse Resp BP Pulse Ox 04/21/22 14:27 97.9 F 70 18 115/75 97 04/21/22 12:15 79 18 140/76 96 04/21/22 10:08 74 18 115/57 04/21/22 08:00 75 18 115/76 96 04/21/22 05:45 55 L 18 119/74 95 04/21/22 00:00 71 16 122/61 98 04/20/22 23:36 68 16 109/72 98 04/20/22 22:47 64 04/20/22 22:29 97.9 F 64 18 159/75 99 Intake and Output 04/20/22 04/21/22 04/21/22 22:59 06:59 14:59 Intake Total 127.701 Balance 127.701 Intake: Intake, IV Titration 127.701 Amount Heparin Sod,Pork in 0.45% 127.701 NaCl 25,000 unit In 0.45 % NaCl 1 250ml.bag @ 12 UNITS/KG/HR 9.798 mls/hr IV .Q24H [facility] Rx#: [id number] Other: Weight 81.647 kg General: The patient is awake and alert, in no distress, and does not appear acutely ill. Skin: Skin is warm and dry and no rashes or lesions are noted. Eye: Pupils are equal, round and reactive to light, extra-ocular movements are intact; there is normal conjunctiva bilaterally. Ears, nose, mouth and throat: There are moist mucous membranes and no oral lesions. Neck: The neck is supple, there is no tenderness or JVD. Cardiovascular: There is regular rate and rhythm. No murmur, rub or gallop is appreciated. Respiratory: Lungs are clear to auscultation, respirations are non-labored, breath sounds are equal. Gastrointestinal: Soft, non-distended, non-tender abdomen without masses or organomegaly noted. There is no rebound or guarding present. Bowel sounds are unremarkable. Back: There is no tenderness to palpation in the midline. There is no obvious deformity. Musculoskeletal: Normal ROM, no tenderness, There is no pedal edema. There is no calf tenderness or swelling. Extremities: Mild bilateral pitting edema Vascular: Femoral pulse is normal. Posterior tibial pulses are normal .Dorsalis pedis is palpable. Neurological: CN II-XII intact. There are no obvious motor or sensory deficits. Speech is normal. Psychiatric: Cooperative, appropriate mood & affect, normal judgment Results Cardiac Enzymes 04/21/22 04/21/22 Range/Units 03:27 05:51 Troponin I 0.116 H* 0.191 H* (0.000-0.034) ng/mL Coagulation 04/20/22 04/21/22 04/21/22 Range/Units 22:45 05:51 10:33 PT 10.8 (9.0-12.0) sec APTT 45.9 H 29.8 (22.0-30.0) sec Current Medications Generic Name Dose Route Start Last Admin Trade Name Freq PRN Reason Stop Dose Admin Aspirin 325 mg 04/22/22 09:00 Aspirin 325 Mg Tab PO DAILY [facility] Atorvastatin Calcium 40 mg 04/21/22 12:30 04/21/22 14:29 Atorvastatin 40 Mg Tab PO 40 mg DAILY [facility] Administration Famotidine 20 mg 04/21/22 09:00 04/21/22 08:42 Famotidine 20 Mg/2 Ml Vial IV 20 mg Q12HR [facility] Administration Heparin Sodium (Porcine) 0 unit 04/20/22 22:51 04/21/22 12:13 Heparin Sodium 1,000 Un/Ml (10ml Vl) IV 4,082.5 unit PER PROTOCOL PRN Administration Low PTT Protocol Hydromorphone HCl 1 mg 04/20/22 22:51 04/21/22 14:29 Hydromorphone 1 Mg/Ml 1 Ml Syringe IVP 1 mg Q6HR PRN Administration Pain Heparin Sodium/Sodium Chloride 250 mls @ 9.798 mls/hr 04/20/22 23:00 04/21/22 12:14 25,000 unit/ Sodium Chloride IV 15 units/kg/hr .Q24H [facility] 12.247 mls/hr Titration Protocol 12 UNITS/KG/HR Lorazepam 0.5 mg 04/20/22 22:50 04/21/22 14:29 Lorazepam 2 Mg/Ml Inj IV 0.5 mg Q6HR PRN Administration Anxiety Metoprolol Succinate 25 mg 04/22/22 09:00 Metoprolol Succinate (Er) 25 Mg Tab.Er.24h PO DAILY [facility] Nitroglycerin 0.4 mg 04/21/22 02:09 Nitroglycerin Sl Tabs 0.4 Mg Tab SUBLINGUAL Q5M PRN Chest Pain Intake and Output 04/20/22 04/21/22 04/21/22 22:59 06:59 14:59 Intake Total 127.701 Balance 127.701 Intake: Intake, IV Titration 127.701 Amount Heparin Sod,Pork in 0.45% 127.701 NaCl 25,000 unit In 0.45 % NaCl 1 250ml.bag @ 12 UNITS/KG/HR 9.798 mls/hr IV .Q24H [facility] Rx#: [id number] Other: Weight 81.647 kg Assessment and Plan Assessment: Non-STEMI History of CAD status post CABG Known history of ischemic cardiomyopathy status post AICD Plan: Obtain a 2-D echocardiogram Continue with current cardiac medications Obtain CBC and BMP in the morning Keep patient nothing by mouth at midnight for possible cardiac catheter Further recommendations based on clinical course The above impression and plan of care have been discussed and directed by the signing physician. Rosmery Beckman, nurse practitioner, acting as scribe for signing physician.
[2022-04-21] MEDS: HEPARIN SOD,PORK IN 0.45% NACL 25,000 UNIT in 0.45% NACL 1 250ML.BAG IV SCH (20:31)
[2022-04-21] MEDS: LORazepam 1 MG/0.5 ML VIAL IV PRN (21:21)
[2022-04-22] MEDS: HYDROmorphone 1 MG/ML 1 ML SYRINGE IVP PRN ×3 (02:45→16:49)
[2022-04-22] MEDS: LORazepam 1 MG/0.5 ML VIAL IV PRN ×2 (04:51→20:34)
[2022-04-22] MEDS: FAMOTIDINE 20 MG/2 ML VIAL IV SCH ×2 (07:01→20:33)
[2022-04-22] MEDS: ATORVASTATIN 40 MG TAB PO SCH (07:01)
[2022-04-22] MEDS: METOPROLOL SUCCINATE (ER) 25 MG TAB.ER.24H PO SCH (07:01)
[2022-04-22 08:21] LABS: Basophils # (A) 0.1 k/uL (0-0.2); Basophils % (A) 1 %; Eosinophils # (A) 0.2 k/uL (0-0.7); Eosinophils % (A) 2 %; HCT 39.4 % (39.0-53.0); HGB 13.4 gm/dL (13.0-17.5); Lymphocytes # (A) 2.6 k/uL (1.0-4.8); Lymphocytes % (A) 33 %; MCH 31.9 pg (25.0-35.0); MCHC 34.1 g/dL (31.0-37.0); MCV 93.6 fL (80.0-100.0); Mean Platelet Volume 8.7; Monocytes # (A) 0.5 k/uL (0-1.0); Monocytes % (A) 7 %; Neutrophils # (A) 4.3 k/uL (1.3-7.7); Neutrophils % (A) 54 %; Platelet Count 160 k/uL (150-450); RBC 4.21 m/uL (4.30-5.90); WBC 7.9 k/uL (3.8-10.6)
[2022-04-22 08:34] LABS: African American GFR (CKD) >90 (>60 ml/min/1.73 sqM); Anion Gap 9 mmol/L; Blood Urea Nitrogen 17 mg/dL (9-20); Calcium 8.4 mg/dL (8.4-10.2); Carbon Dioxide 25 mmol/L (22-30); Chloride 105 mmol/L (98-107); Glucose 95 mg/dL (74-99); Non-African American GFR(CKD) 88 (>60 ml/min/1.73 sqM); Sodium 139 mmol/L (137-145)
[2022-04-22] MEDS ORDERED: ASPIRIN 325 MG TAB PO SCH (09:00)
[2022-04-22] MEDS ORDERED: CLOPIDOGREL 75 MG TAB PO SCH (09:00)
[2022-04-22] MEDS: lisinopriL 20 MG TAB PO SCH (09:54)
[2022-04-22] MEDS: ASPIRIN 81 MG PO SCH (09:54)
[2022-04-22] MEDS: HYDROcodone/APAP 7.5-325MG 1 EACH TAB PO PRN ×2 (10:47→20:38)
--- NOTE | 2022-04-22 11:55 | P.PN ---
Subjective This is a 71-year-old male with a past smoking history of hypertension, dyslipidemia, coronary artery disease with prior 4 vessel CABG, PCI of the di stal segment of SVG to diagonal branch 2018, and PCI in 2017. Patient presents to the emergency department with chest discomfort. There was concern for NSTEMI with elevated troponin. Dr. Hernandez evaluated the patient 04/21 and recommend cardiac catheterization. Patient seen and examined at bedside, no distress. He states that his chest discomfort has resolved. Currently have seen some back discomfort. He denies any shortness of breath, palpitations, lightheadedness or dizziness. He's curre ntly on IV heparin drip. 2-D echo is pending. GENERAL: Well-appearing, well-nourished and in no acute distress. NECK: Supple without JVD or thyromegaly. LUNGS: Breath sounds clear to auscultation bilaterally. Respiration equal and unlabored. No wheezes, rales or rhonchi. HEART: Regular rate and rhythm without murmurs, rubs or gallops. S1 and S2 heard. EXTREMITIES: Normal range of motion, no edema. No clubbing or cyanosis. Peripheral pulses intact. ASSESSMENT NSTEMI Coronary artery disease with prior 4 vessel CABG, PCI of the distal segment of SVG to diagonal branch 2019, and PCI in 2017 as well Hypertension Dyslipidemia Chronic tobacco use Ischemic cardiomyopathy s/p prior AICD implantation PLAN Patient discussed with his primary employee benefits coordinator, Plan for cardiac catheterization with tomorrow Dr. Hernandez. IV heparin drip Aspirin, statin Continue lisinopril and beta nisha NPO after midnight Further recommendations based on clinical course Nurse Practitioner note has been reviewed, I agree with a documented findings and plan of care. Patient was seen and examined. Objective - Vital Signs Vital signs: Vital Signs Temp 98.5 F 04/22/22 04:00 Pulse 53 L 04/22/22 04:00 Resp 16 04/22/22 04:00 BP 136/76 04/22/22 04:00 Pulse Ox 94 L 04/22/22 04:00 FiO2 Intake & Output 04/21/22 04/22/22 04/22/22 18:59 06:59 18:59 Intake Total 127.701 101.446 Output Total 200 Balance -72.299 101.446 Weight 81.647 kg Intake: Intake, IV Titration 127.701 101.446 Amount Heparin Sod,Pork in 0.45% 127.701 101.446 NaCl 25,000 unit In 0.45 % NaCl 1 250ml.bag @ 12 UNITS/KG/HR 9.798 mls/hr IV .Q24H [facility] Rx#: [id number] Output: Urine 200 Other: Voiding Method Bedside Commode Urinal # Voids 1 1 1 - Labs CBC & Chem 7: 04/22/22 07:44 04/22/22 07:44 Labs: Abnormal Lab Results - Last 24 Hours (Table) 04/21/22 04/22/22 04/22/22 Range/Units 18:17 07:44 07:44 RBC 4.21 L (4.30-5.90) m/uL APTT 47.7 H 44.3 H (22.0-30.0) sec
--- NOTE | 2022-04-22 15:09 | CA ---
Transthoracic Echo Report Name: Kalin Whitaker Age: 71 Gender: M : 1950 Exam Date: 04/22/2022 08:41 Exam Location: [facility] Ht (in): 72 Wt (lb): 180 Ordering Physician: Rosmery Beckman Attending/Referring Phys: Payroll Assistant Keyonna Chawla RDCS Procedure CPT: Indications: positive trop Cardiac Hx: Technical Quality: Fair Contrast 1: N/A Total Dose (mL): Contrast 2: Total Dose (mL): MEASUREMENTS (Male / Female) Normal Values 2D ECHO LV Diastolic Diameter PLAX 6.8 cm 4.2 - 5.9 / 3.9 - 5.3 cm LV Systolic Diameter PLAX 5.1 cm IVS Diastolic Thickness 1.0 cm 0.6 - 1.0 / 0.6 - 0.9 cm LVPW Diastolic Thickness 1.1 cm 0.6 - 1.0 / 0.6 - 0.9 cm LV Relative Wall Thickness 0.3 LA Systolic Diameter LX 4.7 cm 3.0 - 4.0 / 2.7 - 3.8 cm LA Volume 123.2 cm??? 18 - 58 / 22 - 52 cm??? M-MODE Aortic Root Diameter MM 3.8 cm LA Systolic Diameter MM 4.1 cm LA Ao Ratio MM 1.1 MV E Point Septal Separation 1.7 cm AV Cusp Separation MM 1.9 cm FINDINGS Left Ventricle Moderately increased left ventricular diastolic diameter. Left ventricular ejection fraction is estimated at 40-45%. Inferior hypokinesis. Right Ventricle Normal right ventricular size and function. Right Atrium Normal right atrial size. Left Atrium Moderately increased left atrial diameter. Severely increased left atrial volume. Mildly increased left atrial area. Mitral Valve Mitral valve thickened. Severe mitral regurgitation. Aortic Valve Trileaflet aortic valve. Tricuspid Valve Structurally normal tricuspid valve. Pulmonic Valve Structurally normal pulmonic valve. Pericardium Normal pericardium. Aorta Normal size aortic root and proximal ascending aorta. CONCLUSIONS Left ventricular ejection fraction of 45% with inferior basal hypokinesis Moderate to severe MR with a dilated left atrium Previewed by: Dr. Rahat Jaime MD (Electronically Signed) Final Date: 22 April 2022 15:08
[2022-04-22 15:24] VITALS: BMI 24.4
[2022-04-22 16:10] LABS: Chol/HDL Ratio 2.91 Ratio; LDL Cholesterol,Calculated 103.6 mg/dL (0.0-131.0); VLDL Calculation 17.94 mg/dL (5.00-40.00)
[2022-04-22] MEDS: LORazepam 2 MG/ML INJ IV PRN (16:45)
[2022-04-22] MEDS: HEPARIN SOD,PORK IN 0.45% NACL 25,000 UNIT in 0.45% NACL 1 250ML.BAG IV SCH (17:07)
[2022-04-22] MEDS: SODIUM CHLORIDE 0.9% 1,000 ML in EMPTY BAG 1 BAG IV SCH (20:36)
--- NOTE | 2022-04-22 21:32 | P.PN ---
Subjective Progress Note Date: 04/22/22 This is a pleasant 71 years old male with multiple medical problems as below. Patient was transferred from [facility]. Presents because of chest pain. He is a patient of Dr. Colunga Patient presents because of chest pain which she hasn't for 2-4 days, was on an pretty severe but when he came in it was [id number], its and anterior chest radiating to the left side felt like sharp NOT associated or increased by coughing. Also patient reports some shortness of breath with it at rest or with exertion. No GI urinary or neurological symptoms, no vomiting diarrhea or abdominal pain, no dysuria or urgency, no headache weakness numbness or dizziness. He smokes about 10 cigarettes per day and he was counseled to quit but he declines the nicotine patch. No alcohol or illicit drugs. Patient says that he was doing fine until lately he started smoking again after some stress events happening with his daughter. Patient has history of heart disease and has been, with 8-10 stents before react knapsack sprayer is Dr. Stevenson Vitals are stable. Patient is afebrile. Pressure is controlled. INR 1.0 0.11 Currently patient is on heparin drip and aspirin 325 mg and knapsack sprayer this consulted already When we checked [facility] documents patient WBC is 8.6, hemoglobin 14.1, platelet count 216. ProBNP 5-7. Troponin 0.03 and 0.05. Potassium 4, sodium 139, creatinine normal 0.9. AST 22, ALT 21, bilirubin 0.5. INR 0.9. Covid negative 04/22/2022 Patient is evaluated today sitting up in bed. Denies chest pain, no shortness of breath at rest. He does complain of some right sided rib pain radiating down into his lower abdomen and groin, and an xray will be taken. He reports minimal pain relief with dilaudid and states norco is helping some. He is maintained on suboxone for pain control outpatient which is not available inpatient. Echocardiogram has been completed showing LV function of 45% with basal hypokinesis, moderate to severe MR with dilated left atrium. Patient continues on IV heparin and plan is to undergo cardiac catheterization tomorrow. Review of Systems Constitutional: Denied any fatigue denied any fever. Cardio vascular: denied any chest pain, palpitations Gastrointestinal: denied any nausea, vomiting, diarrhea, reports right sided rib pain and lower abdominal pain. Pulmonary: Denied any shortness of breath cough Neurologic denied any new focal deficits All inpatient medications were reviewed and appropriate changes in these medications as dictated in the interval history and assessment and plan. PHYSICAL EXAMINATION: GENERAL: The patient is alert and oriented x3, not in any acute distress. Well developed, well nourished. HEENT: Pupils are round and equally reacting to light. EOMI. No scleral icterus. No conjunctival pallor. Normocephalic, atraumatic. No pharyngeal erythema. No thyromegaly. CARDIOVASCULAR: S1 and S2 present. No murmurs, rubs, or gallops. PULMONARY: Chest is clear to auscultation, no wheezing or crackles. ABDOMEN: Soft, nontender, nondistended, normoactive bowel sounds. No palpable organomegaly. MUSCULOSKELETAL: No joint swelling or deformity. EXTREMITIES: No cyanosis, clubbing, or pedal edema. NEUROLOGICAL: Gross neurological examination did not reveal any focal deficits. SKIN: No rashes. Assessment and Plan Assessment Chest pain with elevated troponin suspicious for non-STEMI Nicotine dependence Onging life stressors Hypertension Hyperlipidemia History of depression History of coronary artery disease, status post stenting. Status post CABG. Status post AICD and pacemaker History of osteoarthritis Chronic back pain GI Prophylaxis on IV pepcid DVT Prophylaxis on IV heparin Full Code Plan Patient continues on IV heparin 2D Echocardiogram reviewed Plan to undergo cardiac catheterization tomorrow Lumbar/hip xray Check liver enzymes The impression and plan of care has been dictated by Mari Patel Nurse Practitioner as directed. Dr. Ivan MD I have performed a history and physical examination and medical decision making of this patient, discussed the same with the dictator, and agree with the dictators assessment and plan as written, documented as a scribe. Based on total visit time, I have performed more than 50% of this visit. Objective - Vital Signs Vital signs: Vital Signs Temp 98.3 F 04/22/22 09:40 Pulse 74 04/22/22 11:35 Resp 16 04/22/22 11:35 BP 129/78 04/22/22 11:35 Pulse Ox 98 04/22/22 11:35 FiO2 Intake & Output 04/21/22 04/22/22 04/22/22 18:59 06:59 18:59 Intake Total 127.701 101.446 Output Total 200 Balance -72.299 101.446 Weight 81.647 kg Intake: Intake, IV Titration 127.701 101.446 Amount Heparin Sod,Pork in 0.45% 127.701 101.446 NaCl 25,000 unit In 0.45 % NaCl 1 250ml.bag @ 12 UNITS/KG/HR 9.798 mls/hr IV .Q24H [facility] Rx#: [id number] Output: Urine 200 Other: Voiding Method Bedside Commode Urinal # Voids 1 1 1 - Labs CBC & Chem 7: 04/22/22 07:44 04/22/22 07:44 Labs: Abnormal Lab Results - Last 24 Hours (Table) 04/21/22 04/22/22 04/22/22 Range/Units 18:17 07:44 07:44 RBC 4.21 L (4.30-5.90) m/uL APTT 47.7 H 44.3 H (22.0-30.0) sec Assessment and Plan Time with Patient: Less than 30
[2022-04-23] MEDS: HYDROcodone/APAP 7.5-325MG 1 EACH TAB PO PRN ×2 (02:29→20:04)
[2022-04-23] MEDS: ASPIRIN 81 MG PO SCH (04:51)
[2022-04-23] MEDS: lisinopriL 20 MG TAB PO SCH (04:52)
[2022-04-23] MEDS: FAMOTIDINE 20 MG/2 ML VIAL IV SCH ×2 (04:52→20:04)
[2022-04-23] MEDS: METOPROLOL SUCCINATE (ER) 25 MG TAB.ER.24H PO SCH (04:52)
[2022-04-23] MEDS: ATORVASTATIN 40 MG TAB PO SCH (04:52)
[2022-04-23] MEDS: HYDROmorphone 1 MG/ML 1 ML SYRINGE IVP PRN ×2 (04:53→10:40)
[2022-04-23 05:56] LABS: Glucose,Whole Blood 109 mg/dL (70-110)
[2022-04-23] MEDS ORDERED: HEPARIN SODIUM,PORCINE 10,000 UNIT in SODIUM CHLORIDE 0.9% 1,000 ML IRRIGATION PRN (07:00)
[2022-04-23] MEDS ORDERED: HEPARIN SODIUM,PORCINE 2,500 UNIT in SODIUM CHLORIDE 0.9% 250 ML IRRIGATION PRN (07:00)
--- NOTE | 2022-04-23 07:04 | XR ---
EXAMINATION TYPE: XR Hip Complete RT DATE OF EXAM: 04/23/2022 6:51 AM INDICATION: Patient age:Male; 71 years old; Reason for study: lower right back/groin pain; PHH. COMPARISON: Bilateral hip radiographs 08/10/2016. TECHNIQUE: The right hip was examined in the frontal and lateral projections and a AP pelvis. FINDINGS: No evidence of any acute osseous pathology, joint dislocation, or soft tissue swelling. Med ial joint space narrowing both hips with acetabular spurring. Vascular sclerosis. Pelvic phleboliths. Degenerative changes visualized spine. IMPRESSION: 1. No acute osseous pathology. 2. Moderate osteoarthritic changes of both hips.
--- NOTE | 2022-04-23 07:06 | XR ---
EXAMINATION TYPE: XR lumbar spine 1V DATE OF EXAM: 04/23/2022 6:51 AM INDICATION: Patient age:Male; 71 years old; Reason for study: right sided back pain; PHH. COMPARISON: CT lumbar spine 06/17/2018 TECHNIQUE: 1 frontal view was obtained. FINDINGS: Limited evaluation with only single view identified. There are 5 nonrib-bearing lumbar type vertebral bodies identified. No evidence of any acute osseous pathology. No evidence of loss of ian tebral body height is seen. Multilevel degenerative disc disease most pronounced at L4-L5 and L5-S1 w ith disc space narrowing and endplate sclerosis. Mesh anchors are demonstrated IMPRESSION: 1. No acute process. 2. Mild to moderate degenerative disc disease.
[2022-04-23] MEDS ORDERED: IV FLUID CONTINUATION 900 ML IV ONE (07:16)
[2022-04-23] MEDS: fentaNYL (PF) 50 MCG/ML 2 ML AMP IV ONE ×3 (07:18→08:06)
[2022-04-23] MEDS: MIDAZOLAM 2 MG/2 ML VIAL IV ONE ×2 (07:18→08:06)
[2022-04-23] MEDS ORDERED: LIDOCAINE 1% INJ 10MG/ML (30 ML VIAL-PF) SQ ONE (07:21)
[2022-04-23] MEDS ORDERED: IOPAMIDOL-370 100ML BTL INJ ONE ×3 (07:35→08:51)
[2022-04-23] MEDS ORDERED: CLOPIDOGREL 75 MG TAB PO ONE (07:51)
[2022-04-23] MEDS: HEPARIN SODIUM 1,000 UN/ML (10ML VL) IV ONE ×2 (08:16→08:30)
[2022-04-23] MEDS ORDERED: NITROGLYCERIN 1000MCG/10ML SYRINGE INTRACORON ONE (08:29)
[2022-04-23] MEDS ORDERED: MIDAZOLAM 2 MG/2 ML VIAL IV ONE (08:33)
[2022-04-23] MEDS ORDERED: NITROGLYCERIN SL TABS 0.4 MG TAB SUBLINGUAL PRN (09:02)
[2022-04-23] MEDS ORDERED: ZOLPIDEM 5 MG TAB PO PRN (09:02)
[2022-04-23] MEDS ORDERED: RX INFO: IV CONTRAST WAS GIVEN 1 EACH MISC MISCELLANE PRN (09:02)
[2022-04-23] MEDS ORDERED: MAG HYDROX/AL HYDROX/SIMETH 30 ML CUP PO PRN (09:02)
[2022-04-23] MEDS ORDERED: ATROPINE SULFATE 0.1 MG/ML 10ML SYRINGE IV PRN (09:02)
--- NOTE | 2022-04-23 09:09 | P.CARDCATH ---
Date of Procedure: 04/23/22 Description of Procedure: PERCUTANEOUS TRANSLUMINAL CORONARY ANGIOPLASTY CLINICAL INFORMATION: The patient is a 71-year-old male with a known history of CAD status post CABG and prior PCI presented with non-STEMI, he underwent cardiac catheterization by Dr. Hernandez and was found to have severe obstructive d isease involving the SVG to the diagonal branch proximally and distally . Recommendations were made regarding angioplasty and stenting. The procedure as well as the risks and the complications were discussed with the patient who was in full understanding and agreement. PROCEDURE: A 6 [place] LCB guiding catheter was introduced into the system. After cannulating the ostium of the saphenous vein graft, a 0.014 BMW J was advanced across the lesion and positioned distally. Following that a 2.5 x 12 m Treck balloon was advanced and inflated at 10 atmosphere. Following that a 3.0 x 15 m Xience amber point stent was deployed. It was dilated at 16 karen. Following that 3.5 x 15 mm NC Treck was advanced and one inflation at 12 karen was done. Following that a 3.5 x 33 mm Xience amber point stent was advanced to the proximal segment of the graft and deployed at 16 karen, after removing the balloon 3.5 x 18 mm Xience amber point stent was deployed proximal to the last one and dilated at 16 karen. After the last inflation, after appropriate wait, the balloon and the guidewire were withdrawn back into the guiding catheter. Images were obtained and repeated. Those images reveal stable successful stenting. At that point, the guiding catheter, the balloon, and guidewire were removed. The sheath was sutured in place. There were no immediate complications. The patient was returned to the room in stable condition. Of note, the patient received 7500 units of heparin as well as Plavix. His ACT was followed. There was no immediate complications. He had chest discomfort that resolved at the end of the procedure RESULTS: Successful stenting of the SVG to the diagonal branch with reduction of stenosis from 90 % to 0 % and stenting of the proximal segment of the SVG to diagonal branch with reduction of the stenosis from 80% to 0%. RECOMMENDATIONS: The patient will be continued on dual antiplatelet treatment with aspirin and Plavix for 12 months in addition to aggressive coronary risks modifications. The findings and recommendations were discussed with the patient and the family, they are in full understanding and agreement. Duration of sedation: 39 minutes
[2022-04-23] MEDS ORDERED: SODIUM CHLORIDE 0.9% 1,000 ML in EMPTY BAG 1 BAG IV SCH (09:15)
[2022-04-23] MEDS: SODIUM CHLORIDE 0.9% 1,000 ML in EMPTY BAG 1 BAG IV SCH ×2 (09:25→23:48)
[2022-04-23 10:31] LABS: Basophils % (A) 1 %; Eosinophils # (A) 0.2 k/uL (0-0.7); Eosinophils % (A) 3 %; HCT 34.5 % (39.0-53.0); HGB 11.6 gm/dL (13.0-17.5); Lymphocytes # (A) 1.5 k/uL (1.0-4.8); Lymphocytes % (A) 28 %; MCH 32.2 pg (25.0-35.0); MCHC 33.8 g/dL (31.0-37.0); MCV 95.3 fL (80.0-100.0); Mean Platelet Volume 8.5; Monocytes # (A) 0.4 k/uL (0-1.0); Monocytes % (A) 7 %; Neutrophils # (A) 3.3 k/uL (1.3-7.7); Neutrophils % (A) 60 %; Platelet Count 157 k/uL (150-450); RBC 3.62 m/uL (4.30-5.90); RDW 11.8 % (11.5-15.5); WBC 5.5 k/uL (3.8-10.6)
[2022-04-23 10:47] LABS: ALT 20 U/L (4-49); AST 24 U/L (17-59); African American GFR (CKD) >90 (>60 ml/min/1.73 sqM); Alkaline Phosphatase 52 U/L (38-126); Anion Gap 6 mmol/L; Blood Urea Nitrogen 19 mg/dL (9-20); Calcium 7.8 mg/dL (8.4-10.2); Carbon Dioxide 25 mmol/L (22-30); Chloride 107 mmol/L (98-107); Glucose 98 mg/dL (74-99); Non-African American GFR(CKD) 83 (>60 ml/min/1.73 sqM); Potassium 4.3 mmol/L (3.5-5.1); Sodium 138 mmol/L (137-145)
[2022-04-23] MEDS: LORazepam 1 MG/0.5 ML VIAL IV PRN ×3 (12:31→23:43)
--- NOTE | 2022-04-23 13:15 | P.PN ---
Subjective Progress Note Date: 04/23/22 This is a pleasant 71 years old male with multiple medical problems as below. Patient was transferred from [facility]. Presents because of chest pain. He is a patient of Dr. Colunga Patient presents because of chest pain which she hasn't for 2-4 days, was on an pretty severe but when he came in it was [id number], its and anterior chest radiating to the left side felt like sharp NOT associated or increased by coughing. Also patient reports some shortness of breath with it at rest or with exertion. No GI urinary or neurological symptoms, no vomiting diarrhea or abdominal pain, no dysuria or urgency, no headache weakness numbness or dizziness. He smokes about 10 cigarettes per day and he was counseled to quit but he declines the nicotine patch. No alcohol or illicit drugs. Patient says that he was doing fine until lately he started smoking again after some stress events happening with his daughter. Patient has history of heart disease and has been, with 8-10 stents before react programming equipment operator is Dr. Stevenson Vitals are stable. Patient is afebrile. Pressure is controlled. INR 1.0 0.11 Currently patient is on heparin drip and aspirin 325 mg and programming equipment operator this consulted already When we checked [facility] documents patient WBC is 8.6, hemoglobin 14.1, platelet count 216. ProBNP 5-7. Troponin 0.03 and 0.05. Potassium 4, sodium 139, creatinine normal 0.9. AST 22, ALT 21, bilirubin 0.5. INR 0.9. Covid negative 04/22/2022 Patient is evaluated today sitting up in bed. Denies chest pain, no shortness of breath at rest. He does complain of some right sided rib pain radiating down into his lower abdomen and groin, and an xray will be taken. He reports minimal pain relief with dilaudid and states norco is helping some. He is maintained on suboxone for pain control outpatient which is not available inpatient. Echocardiogram has been completed showing LV function of 45% with basal hypokinesis, moderate to severe MR with dilated left atrium. Patient continues on IV heparin and plan is to undergo cardiac catheterization tomorrow. 04/23/2022 Patient underwent coronary angiography this morning and received 3 stents. He is currently denying chest pain. Continues on aspirin/plavix combination. Lumbar xray and hip xray completed showing osteoarthritis and disc degeneration at L4 to L5 and L5 to S1. He states he has seen pain doctors in the past. BUN 19, creatinine 0.93. Blood pressure 117/69 patient will be monitored overnight. Review of Systems Constitutional: Denied any fatigue denied any fever. Cardio vascular: denied any chest pain, palpitations Gastrointestinal: denied any nausea, vomiting, diarrhea. Pulmonary: Denied any shortness of breath cough Neurologic denied any new focal deficits All inpatient medications were reviewed and appropriate changes in these medications as dictated in the interval history and assessment and plan. PHYSICAL EXAMINATION: GENERAL: The patient is alert and oriented x3, not in any acute distress. Well developed, well nourished. HEENT: Pupils are round and equally reacting to light. EOMI. No scleral icterus. No conjunctival pallor. Normocephalic, atraumatic. No pharyngeal erythema. No thyromegaly. CARDIOVASCULAR: S1 and S2 present. No murmurs, rubs, or gallops. PULMONARY: Chest is clear to auscultation, no wheezing or crackles. ABDOMEN: Soft, nontender, nondistended, normoactive bowel sounds. No palpable organomegaly. MUSCULOSKELETAL: No joint swelling or deformity. EXTREMITIES: No cyanosis, clubbing, or pedal edema. Right groin sheath in place. NEUROLOGICAL: Gross neurological examination did not reveal any focal deficits. SKIN: No rashes. Assessment and Plan Assessment Chest pain with elevated troponin suspicious for non-STEMI post PCI with 3 stents. Nicotine dependence Onging life stressors Hypertension Hyperlipidemia History of depression History of coronary artery disease, status post stenting. Status post CABG. Status post AICD and pacemaker History of osteoarthritis Chronic back pain GI Prophylaxis on IV pepcid DVT Prophylaxis on IV heparin Full Code Plan Patient is status post PCI will be monitored overnight 2D Echocardiogram reviewed Lumbar/hip xray Aggressive life style modifications Will be referred to pain management on discharge. The impression and plan of care has been dictated by Mari Patel Nurse Practitioner as directed. Dr. Ivan MD I have performed a history and physical examination and medical decision making of this patient, discussed the same with the dictator, and agree with the dictators assessment and plan as written, documented as a scribe. Based on total visit time, I have performed more than 50% of this visit. Objective - Vital Signs Vital signs: Vital Signs Temp 97.6 F 04/23/22 09:17 Pulse 70 04/23/22 11:47 Resp 18 04/23/22 11:47 BP 117/69 04/23/22 11:47 Pulse Ox 96 04/23/22 11:47 FiO2 Intake & Output 04/22/22 04/23/22 04/23/22 18:59 06:59 18:59 Intake Total 368 602.027 500 Output Total 400 Balance 368 202.027 500 Weight 81.647 kg 91.5 kg Intake: IV 500 Intake, IV Titration 250 160.027 Amount Heparin Sod,Pork in 0.45% 250 160.027 NaCl 25,000 unit In 0.45 % NaCl 1 250ml.bag @ 12 UNITS/KG/HR 9.798 mls/hr IV .Q24H TRAY Rx#: [id number] Oral 118 442 Output: Urine 400 Other: Voiding Method Bedside Commode Bedside Commode Bedside Commode Urinal Urinal Urinal # Voids 1 1 - Labs CBC & Chem 7: 04/23/22 10:16 04/23/22 10:16 Labs: Abnormal Lab Results - Last 24 Hours (Table) 04/22/22 04/23/22 04/23/22 Range/Units 07:44 10:16 10:16 RBC 3.62 L (4.30-5.90) m/uL Hgb 11.6 L (13.0-17.5) gm/dL Hct 34.5 L (39.0-53.0) % APTT (22.0-30.0) sec Calcium 7.8 L (8.4-10.2) mg/dL HDL Cholesterol 63.50 H (40.00-60.00) mg/dL 04/23/22 Range/Units 10:16 RBC (4.30-5.90) m/uL Hgb (13.0-17.5) gm/dL Hct (39.0-53.0) % APTT 68.8 H (22.0-30.0) sec Calcium (8.4-10.2) mg/dL HDL Cholesterol (40.00-60.00) mg/dL Assessment and Plan Time with Patient: Less than 30
--- NOTE | 2022-04-23 23:19 | CC ---
CARDIAC CATHETERIZATION REPORT INDICATION: Acute non-ST segment elevation OK. PROCEDURE NOTE: After obtaining informed consent, left heart catheterization, coronary angiogram and selective injection of the bypass grafts have been performed via the right femoral artery. The patient has chronic right hip and groin pain and received moderate conscious sedation. Total sedation time was 18 minutes. FINDINGS: 1. Hemodynamics: Left ventricular end-diastolic pressure is 18 mm. There is no significant gradient across the aortic valve. 2. Left ventriculogram: Left ventriculogram was not performed. 3. Angiographic data: a.The right coronary artery is totally occluded. There are hqfg-ni-rkrue collaterals to the distal right from the circumflex coronary artery. b. Left main coronary artery divides into LAD and circ. c.Left anterior descending coronary artery appears occluded in its proximal portion. Circumflex coronary artery shows ijnytnjz-dc-ndihuk diffuse disease. d.NAVAS to LAD is patent and is free of significant disease. e.Venous graft to diagonal shows a 90% stenosis proximal to the distal anastomosis and there is also a long segment of narrowing in the proximal portion. The venous graft to the OM and PDA has been occluded on previous angiograms. CONCLUSION: 1. Severe 3-vessel coronary artery disease with patent NAVAS to LAD and patent venous graft to the diagonal with severe stenosis involving the venous graft to the diagonal branch. PLAN: The angiographic data is reviewed by Dr. Hudson, the on-call street light servicer, who will proceed with angioplasty and stent placement of the same. MMODL / IJN: [id number] /
[2022-04-24] MEDS: HYDROmorphone 1 MG/ML 1 ML SYRINGE IVP PRN (02:05)
[2022-04-24] MEDS: HYDROcodone/APAP 7.5-325MG 1 EACH TAB PO PRN (03:49)
[2022-04-24 04:26] VITALS: RESP 17
[2022-04-24] MEDS: LORazepam 1 MG/0.5 ML VIAL IV PRN (06:36)
[2022-04-24 08:12] LABS: African American GFR (CKD) >90 (>60 ml/min/1.73 sqM); Anion Gap 7 mmol/L; Blood Urea Nitrogen 16 mg/dL (9-20); Calcium 8.4 mg/dL (8.4-10.2); Carbon Dioxide 24 mmol/L (22-30); Chloride 106 mmol/L (98-107); Glucose 126 mg/dL (74-99); Non-African American GFR(CKD) 85 (>60 ml/min/1.73 sqM); Potassium 4.3 mmol/L (3.5-5.1); Sodium 137 mmol/L (137-145)
[2022-04-24] MEDS: FAMOTIDINE 20 MG/2 ML VIAL IV SCH (08:15)
[2022-04-24] MEDS: ATORVASTATIN 40 MG TAB PO SCH (08:18)
[2022-04-24] MEDS: METOPROLOL SUCCINATE (ER) 25 MG TAB.ER.24H PO SCH (08:19)
[2022-04-24] MEDS: ASPIRIN 81 MG PO SCH (08:19)
[2022-04-24] MEDS: lisinopriL 20 MG TAB PO SCH (08:19)
[2022-04-24 08:22] VITALS: BP 142/77; PULSE 50; TEMP 97.9
[2022-04-24] MEDS ORDERED: CLOPIDOGREL 75 MG TAB PO SCH (09:00)
--- NOTE | 2022-04-24 09:50 | P.PN ---
Subjective This is a 71-year-old male with a past smoking history of hypertension, dyslipidemia, coronary artery disease with prior 4 vessel CABG, PCI of the di stal segment of SVG to diagonal branch 2018, and PCI in 2017. Patient presents to the emergency department with chest discomfort. There was concern for NSTEMI with elevated troponin. Dr. Hernandez evaluated the patient 04/21 and recommend cardiac catheterization. Patient underwent cardiac catheterization with Dr. Hernandez on 04/23/2022, this revealed severe three-vessel coronary artery disease with patent NAVAS to LAD and patent venous graft to diagonal severe stenosis involving the venous graft to diagonal branch. Patient underwent successful stenting of SVG to diagonal branch and stenting of the proximal segment of the SVG to diagonal branch by Dr. Hudson 04/24/2022 Patient seen and examined at bedside, no distress. No acute events overnight, no complaints. He denies chest pain or shortness of breath. He denies any palpitations, lightheadedness or dizziness. His vital signs are stable. He was started on dual antiplatelet therapy with aspirin and Plavix. Echocardiogram revealed EF of 4045 %, severely increased left atrial volume, inferior basal hypokinesis, moderate to severe mitral regurgitation with dilated left atrium Labs: Sodium 137, potassium 4.3, BUN 16, serum creatinine 0.91 GENERAL: Well-appearing, well-nourished and in no acute distress. NECK: Supple without JVD LUNGS: Breath sounds clear to auscultation bilaterally. Respiration equal and unlabored. No wheezes, rales or rhonchi. HEART: Regular rate and rhythm without murmurs, rubs or gallops. S1 and S2 heard. EXTREMITIES: Normal range of motion, no edema. No clubbing or cyanosis. Peripheral pulses intact. Right femoral cath site, clean, dry, no hematoma ASSESSMENT NSTEMI Status post stenting of SVG to diagonal branch and stenting of the proximal segment of the SVG to diagonal branch 04/23/2022 Coronary artery disease with prior 4 vessel CABG, PCI of the distal segment of SVG to diagonal branch 2018, and PCI in 2016 as well Hypertension Dyslipidemia Chronic tobacco use Ischemic cardiomyopathy s/p prior AICD implantation PLAN From cardiology perspective, patient stable to be discharged home Continue dual antiplatelet therapy with aspirin and Plavix Continue statin, lisinopril, metoprolol succinate Follow up outpatient with Dr. Hernandez in one week Nurse Practitioner note has been reviewed, I agree with a documented findings and plan of care. Patient was seen and examined. Objective - Vital Signs Vital signs: Vital Signs Temp 97.9 F 04/24/22 08:21 Pulse 50 L 04/24/22 08:21 Resp 17 04/24/22 08:21 BP 142/77 04/24/22 08:21 Pulse Ox 96 04/24/22 08:21 FiO2 Intake & Output 04/23/22 04/24/22 04/24/22 18:59 06:59 18:59 Intake Total 880 480 180 Output Total 1200 400 Balance -320 80 180 Intake: IV 500 Oral 380 480 180 Output: Urine 1200 400 Other: Voiding Method Bedside Commode Urinal # Voids 1 # Bowel Movements 1 - Labs CBC & Chem 7: 04/23/22 10:16 04/24/22 07:22 Labs: Abnormal Lab Results - Last 24 Hours (Table) 04/23/22 04/23/22 04/23/22 Range/Units 10:16 10:16 10:16 RBC 3.62 L (4.30-5.90) m/uL Hgb 11.6 L (13.0-17.5) gm/dL Hct 34.5 L (39.0-53.0) % APTT 68.8 H (22.0-30.0) sec Glucose (74-99) mg/dL Calcium 7.8 L (8.4-10.2) mg/dL 04/24/22 Range/Units 07:22 RBC (4.30-5.90) m/uL Hgb (13.0-17.5) gm/dL Hct (39.0-53.0) % APTT (22.0-30.0) sec Glucose 126 H (74-99) mg/dL Calcium (8.4-10.2) mg/dL
[2022-04-24] MEDS: SODIUM CHLORIDE 0.9% 1,000 ML in EMPTY BAG 1 BAG IV SCH (11:06)
--- NOTE | 2022-04-26 18:58 | P.DS ---
Providers Date of admission: 04/21/22 02:10 Attending physician: Suresh Carrero Consults: 04/21/22 02:10 Consult Physician Urgent Consulting Provider: Obinna Hudson Consult Reason/Comments: nstemi Do you want consulting provider notified?: Yes 04/23/22 09:02 Consult Physician Routine Consulting Provider: [facility] Consult Reason/Comments: Post Interventional Patient Do you want consulting provider notified?: Already Contacted Primary care physician: Jaswinder Herbert [facility] Course: Final Diagnosis Chest pain with elevated troponin suspicious for non-STEMI Nicotine dependence Onging life stressors Hypertension Hyperlipidemia History of depression History of coronary artery disease, status post stenting. Status post CABG. Status post AICD and pacemaker History of osteoarthritis Chronic back pain Full Code Discharge Disposition Patient is stable for discharge home. Has been cleared by cardiology. Patient underwent PCI and had 2 stents of the SVG to diagonal branch. Patient is counseled on smoking cessation which he currently declines to quit. Continues on dual antiplatelet therapy. Also on toprol XL 25 mg po daily, lisinopril 20 mg po daily, and atorvastatin 40 mg po daily. Patient has an appointment with his primary care provider Mily Salcedo on May 02 at 1030 am. Patient follows up with Dr. Hernandez on May 01 at 9am. Hospital Course This is a pleasant 71 years old male with multiple medical problems including hypertension, hyperlipidemia, coronary artery disease with 4 vessel CABG and prior PCI in 2019 and 2017. Patient was transferred from [facility]. Patient presents because of chest pain which she hasn't for 2-4 days, was on an pretty severe but when he came in it was [id number], its and anterior chest radiating to the left side felt like sharp NOT associated or increased by coughing. Also patient reports some shortness of breath with it at rest or with exertion. No GI urinary or neurological symptoms, no vomiting diarrhea or abdominal pain, no dysuria or urgency, no headache weakness numbness or dizziness. He smokes about 10 cigarettes per day and he was counseled to quit but he declines the nicotine patch. No alcohol or illicit drugs. Patient says that he was doing fine until lately he started smoking again after some stress events happening with his daughter. Patient has history of heart disease and has been, with 8-10 stents before. He was admitted with possible NSTEMI and evaluated by cardiology who recommended cardiac cath. He was started on heparin gtt and given aspirin 325 mg. He underwent cath on 04/23/[address] Hernandez which revealed severe triple vessel coronary artery disease. He had stenting of SVG to diagonal branch and stenting of the proximal segment of the SVG to the diagonal branch by Dr. Hudson. Patient was monitored overnight and discharged on 04/24/22 on dual antiplatelet therapy. Some of the patients work up includes; INR 1.0 When we checked [facility] documents patient WBC is 8.6, hemoglobin 14.1, platelet count 216. ProBNP 5-7. Troponin 0.03 and 0.05. Potassium 4, sodium 139, creatinine normal 0.9. AST 22, ALT 21, bilirubin 0.5. INR 0.9. Covid negative Lipid panel showing cholesterol 185, LDL 103, HDL 63.50. Triglycerides 89.70. He also had reported right lumbar back pain which imaging reveals mild to moderate degenerative disc disease most pronounced at L4-L5 and L5 to S1. There is disc space narrowing and also endplate sclerosis. There are also moderate osteoarthritic changes of both hips. He is referred back to stained glass painter which appears to be following with dr. Shankar. 04/24/2022 Patient is evaluated today resting in bed. He is status post PCI yesterday. Right groin soft intact. He reports no acute events overnight. No chest pain, no palpitations, no shortness of breath. Lungs are clear S1 S2 auscultated. No peripheral edema. Focal neurological exam is negative. He is discharged on dual antiplatelet therapy with aspirin and plavix. BUN and creatinine remain stable. No white count. He is afebrile, heart rate 53, blood presssure 137/79, 98% room air. Please see medication reconciliation for a list of current medication. Thank you for allowing us to participate in the care of this patient. The impression and plan of care has been dictated by Mari Patel, Nurse Practitioner as directed. Dr. Ivan MD I have performed a history and physical examination and medical decision making of this patient, discussed the same with the dictator, and agree with the dictators assessment and plan as written, documented as a scribe. Based on total visit time, I have performed more than 50% of this visit. Plan - Discharge Summary New Discharge Prescriptions: New Aspirin 81 mg PO DAILY #90 tab Nitroglycerin Sl Tabs [Nitrostat] 0.4 mg SUBLINGUAL Q5M PRN #25 tab PRN Reason: Chest Pain Clopidogrel [Plavix] 75 mg PO DAILY #90 tab Metoprolol Succinate (ER) [Toprol XL] 25 mg PO DAILY #90 tab Continue Atorvastatin [Lipitor] 40 mg PO DAILY lisinopriL [Prinivil] 20 mg PO DAILY Discharge Medication List Atorvastatin [Lipitor] 40 mg PO DAILY 01/07/18 [History] lisinopriL [Prinivil] 20 mg PO DAILY 04/21/22 [History] Aspirin 81 mg PO DAILY #90 tab 04/24/22 [Rx] Clopidogrel [Plavix] 75 mg PO DAILY #90 tab 04/24/22 [Rx] Metoprolol Succinate (ER) [Toprol XL] 25 mg PO DAILY #90 tab 04/24/22 [Rx] Nitroglycerin Sl Tabs [Nitrostat] 0.4 mg SUBLINGUAL Q5M PRN #25 tab 04/24/22 [Rx] Follow up Appointment(s)/Referral(s): Jeremy Shankar MD [STAFF PHYSICIAN] - 1 Week Mily Salcedo NPC [Family Provider] - 05/02/22 10:30 am Chung Hernandez MD [STAFF PHYSICIAN] - 05/01/22 9:00 am (at main office. ) Patient Instructions/Handouts: Heart Catheterization (DC) Activity/Diet/Wound Care/Special Instructions: Cardiology Instructions After Cardiac Catheterization with Stent Placement: 1. Aspirin as anti-platelet therapy - Aspirin lessens the chance of heart attack and stroke. It helps prevent blood clots from forming, allowing the blood to flow more easily. Each day, you will take one 81 mg (non-enteric coated) tablet daily. You will be taking aspirin as a lifelong medication. Do not stop unless instructed by your doctor. 2. Anti-platelet Therapy. -In addition to aspirin, you will take ONE of the following anti-platelet medications daily. This will help prevent a clot from forming in your stent: Plavix (clopidogrel) -You will need to take your anti-platelet medicine every day for 12 months -Please consult your heart doctor before you stop this medicine. -They may want you to continue for a longer period of time. 3. Statins -A statin medication lowers cholesterol levels in the blood. This helps slow the progression of heart disease. - Please take your statin medication as prescribed by your doctor. -You may be taking one of the following statins: Lipitor (atorvastatin) Other Medications: -ACEI/ Angiotensin II Receptor Trisha (Lisinopril is your medication)- can help your heart work better after a heart attack and decrease the amount of damage from a heart attack -Beta trisha. (metoprolol succinate is your medication) Is a medication that protects your heart from stress and can prevent future heart attacks. It can slow your heart rate. It can take weeks for your body to get used to a beta trisha. The dose may need to be changed a few times as your body adjusts Do not stop taking these medicines without talking to your doctor. -Take all other medicines as directed by your doctor. Do not take any extra aspirin or ibuprofen. They can increase your risk of bleeding. Many vimh-shv-kyvqcfo drugs contain aspirin. If you are unsure about what the drug contains, check with your pharmacist before taking it. -For mild discomfort, you may take plain Tylenol (acetaminophen). Follow dose directions, but do not take more than 4,000 mg of acetaminophen in 24 hours. Contact your doctor right away or go to the nearest hospital Emergency Room if you have: -Severe angina or chest pain. (This may be a sign of a problem with your stent.) -Excessive bruising, blood in urine/stool or black tarry stools. Healthy LifeStyle It is important to keep a heart healthy lifestyle. This can improve your long- term health and decrease your risk for heart attacks. -Quitting tobacco: the most important thing you can do to protect your health. -Managing your blood cholesterol, blood pressure, weight, and stress. -The importance of regular exercise. -Heart Healthy Diet: Include more plants in your diet. Eat lots of fresh vegetables and fresh fruits. Eat good fats: plant based oils, avocado, nuts, beans, legumes. Eat more seafood. Limit Meat. Switch to whole grains. -Avoid fried foods and animal fats and processed meats Follow up with [facility], [place]nel[place] [phone] Recommend to follow up with pain management services Continue with current outpatient pain medications Discharge Disposition: HOME SELF-CARE
== END 2022-04-24 12:12 | disposition home or self-care (01) | DRG 247 ==
LOC: EC 22:26 → 3SCARD 04-21 02:10
PROVIDERS: ADMIT Hospitalist; ATTEND Hospitalist
PROC: B2131ZZ Fluoroscopy of Multiple Coronary Artery Bypass Grafts using Low Osmolar Contrast (ICD-10-PCS; 2022-04-23)
PROC: B2151ZZ Fluoroscopy of Left Heart using Low Osmolar Contrast (ICD-10-PCS; 2022-04-23)
PROC: B2111ZZ Fluoroscopy of Multiple Coronary Arteries using Low Osmolar Contrast (ICD-10-PCS; 2022-04-23)
PROC: B2181ZZ Fluoroscopy of Left Internal Mammary Bypass Graft using Low Osmolar Contrast (ICD-10-PCS; 2022-04-23)
PROC: 027035Z Dilation of Coronary Artery, One Artery with Two Drug-eluting Intraluminal Devices, Percutaneous Approach (ICD-10-PCS; principal; 2022-04-23 07:30)
PROC: 4A023N7 Measurement of Cardiac Sampling and Pressure, Left Heart, Percutaneous Approach (ICD-10-PCS; 2022-04-23 07:30)
DX: I21.4 Non-ST elevation (NSTEMI) myocardial infarction (principal); I10 Essential (primary) hypertension; I34.0 Nonrheumatic mitral (valve) insufficiency; F32.A Depression, unspecified; E78.5 Hyperlipidemia, unspecified; G89.29 Other chronic pain; R10.31 Right lower quadrant pain; I25.110 Atherosclerotic heart disease of native coronary artery with unstable angina pectoris; I25.710 Atherosclerosis of autologous vein coronary artery bypass graft(s) with unstable angina pectoris; I25.5 Ischemic cardiomyopathy; F17.210 Nicotine dependence, cigarettes, uncomplicated; M51.36 Other intervertebral disc degeneration, lumbar region; M16.0 Bilateral primary osteoarthritis of hip; Z20.822 Contact with and (suspected) exposure to COVID-19; I25.2 Old myocardial infarction; Z95.810 Presence of automatic (implantable) cardiac defibrillator; Z95.5 Presence of coronary angioplasty implant and graft; Z95.1 Presence of aortocoronary bypass graft; Z79.899 Other long term (current) drug therapy; Z79.82 Long term (current) use of aspirin
CPT/HCPCS: 36415; 72020; 73502; 80048; 80061; 84075; 84450; 84460; 84484; 85025; 85610; 85730; 93306; 93459; 96374; 96375; 96376; 99285

== ENCOUNTER 2024-04-13 09:34 | Inpatient (IN) | payer MEDICARE, OTHER ==
[2024-04-13 09:47] VITALS: TEMP 97.3
--- NOTE | 2024-04-13 09:50 | ED ---
General Adult HPI - General Stated complaint: WILLIAM Time Seen by Provider: 04/13/24 09:34 Source: patient, EMS, RN notes reviewed, old records reviewed Mode of arrival: EMS Limitations: altered mental status - History of Present Illness Initial comments: Patient is a 73-year-old male with past medical history markable for CHF, COPD, CABG with AICD. Transferred from [facility] for difficulty breathing. Patient states he has been dealing with shortness of breath for multiple days however awoke from sleep this morning and was in acute respiratory distress. Fabrice rosalinda was placed on BiPAP at the outside facility. Treated for COPD as well as CHF exacerbation. Given antibiotics over concern for infection. Also initiated on heparin over concern for NSTEMI. Patient was in A-fib with RVR which he does have a history of. Laboratory studies he had the out side facility showed elevated troponin, leukocytosis, and chest x-ray showed pulmonary vascular congestion. Patient improved on BiPAP and was sent here for further evaluation. States currently he feels improved on BiPAP machine. In no acute distress. Presents for further evaluation. Denies any current chest pain, abdominal pain, nausea, vomiting. Denies any fevers or chills. Endorses that shortness of breath has been ongoing for the last 2 to 3 days when I ask him however states that it got worse last night which is why he went to the ER. - Related Data Home Medications Medication Instructions Recorded Confirmed Aspirin EC [Ecotrin Low Dose] 81 mg PO DAILY 04/13/24 04/13/24 Buprenorphine/Naloxone 8Mg/2Mg 1 film SL BID 04/13/24 04/13/24 [Suboxone 8-2Mg Film] Docusate [Colace] 200 mg PO DAILY 04/13/24 04/13/24 Furosemide [Lasix] 20 mg PO DAILY 04/13/24 04/13/24 Ibuprofen [Motrin] 800 mg PO TID 04/13/24 04/13/24 Isosorbide Mononitrate ER [Imdur] 30 mg PO DAILY 04/13/24 04/13/24 Magnesium Oxide [Mag-Ox] 400 mg PO DAILY 04/13/24 04/13/24 Nitroglycerin Sl Tabs [Nitrostat] 0.4 mg SL Q5M PRN 04/13/24 04/13/24 Spironolactone [Aldactone] 25 mg PO DAILY 04/13/24 04/13/24 buPROPion SR [Wellbutrin SR] 150 mg PO BID 04/13/24 04/13/24 Previous Rx's Medication Instructions Recorded Clopidogrel [Plavix] 75 mg PO DAILY #90 tab 04/24/22 Allergies Allergy/AdvReac Type Severity Reaction Status Date / Time No Known Allergies Allergy Verified 04/13/24 09:46 Review of Systems ROS Statement: Those systems with pertinent positive or pertinent negative responses have been documented in the HPI. Review of Systems: CONST: Denies fever EYES: Denies blurry vision ENT: Denies nasal congestion C/V: Denies Chest pain RESP: Endorses shortness of breath GI: Denies abdominal pain : Denies dysuria SKIN: Denies rash. MSK: Denies joint pain. NEURO: Denies headache ROS Other: All systems not noted in ROS Statement are negative. 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 COVID booster J&J Apr 2021 Last Myocardial Infarction Date:: 1989 History of Any Multi-Drug Resistant Organisms: None Reported Past Surgical History: AICD, Coronary Bypass/CABG, Heart Catheterization With Stent, Hernia Repair, Pacemaker Additional Past Surgical History / Comment(s): CABG 4 vessel 1989, spinal stenosis stimlator/later removed, bilateral cataracts, at least 8 cardiac stents, aneursym in carotid artery-repaired. PAIN CLINIC PROCEDURES Past Anesthesia/Blood Transfusion Reactions: No Reported Reaction Date of Last Stent Placement:: 12/17/18 Type of Cardiac Device: Permanent Pacemaker, AICD Device Placement Date:: DECEMBER 2017 [employer] Past Psychological History: No Psychological Hx Reported, Depression Smoking Status: Current every day smoker Past Alcohol Use History: None Reported Past Drug Use History: None Reported - Past Family History Father Family Medical History: Myocardial Infarction ([place]) Mother Family Medical History: Myocardial Infarction (IN) Brother(s) Family Medical History: Cancer Sister(s) Additional Family Medical History / Comment(s): CABG 3-vessel General Exam - General Exam Comments Initial Comments: General: Appears in no acute distress. Currently on BiPAP. HEAD: Normal with no signs of head trauma. EYES: PERRLA, EOMI, conjunctiva normal, no discharge. ENT: Hearing grossly intact, normal oropharynx. RESPIRATORY: Mild bilateral end expiratory wheezing with coarse breath sounds bilaterally. Normoxic on BiPAP. C/V: Tachycardic with somewhat irregular rhythm. S1 and S2 auscultated. Periph eral pulses 2+ intact throughout. Patient does have lower extremity peripheral pitting edema. ABD: Abd is soft, nontender, nondistended EXT: Normal range of motion, no obvious deformity SKIN: No rashes or lesions observed on exposed skin. NEURO: Alert and oriented x 4. Limitations: altered mental status Course Vital Signs 04/13/24 04/13/24 04/13/24 09:38 09:46 09:54 Temperature 97.3 F L Pulse Rate 118 H Respiratory 24 34 H Rate Blood Pressure 131/95 O2 Sat by Pulse 99 Oximetry Fraction of 40 Inspired Oxygen (FIO2) 04/13/24 04/13/24 04/13/24 10:55 10:59 11:10 Temperature Pulse Rate 90 116 H 116 H Respiratory 34 H Rate Blood Pressure 145/90 O2 Sat by Pulse Oximetry Fraction of Inspired Oxygen (FIO2) Procedures - Intubation Laryngoscope: other (glidescope) ET Tube Size: 7.5 Tube Secured Depth (cm): 25 Tube Secured Location: lips Tube Placement Confirmation: visualized tube passing through cords, equal breath sounds bilaterally, no breath sounds over epigastrium, confirmation by capnometry Patient Tolerated Procedure: well Intubation Complications: none Medical Decision Making - Medical Decision Making Was pt. sent in by a medical professional or institution (, PA, DIVISION OPERATIONS MANAGER, urgent care, hospital, or long-term...) When possible be specific @ -Transferred from [facility] for evaluation for NSTEMI, CHF, pneumonia, acute hypoxic respiratory failure Did you speak to anyone other than the patient for history (EMS, parent, family, police, friend...)? What history was obtained from this source @ -No Did you review nursing and triage notes (agree or disagree)? Why? @ -I reviewed and agree with nursing and triage notes Were old charts reviewed (outside hosp., previous admission, EMS record, old EKG, old radiological studies, urgent care reports/EKG's, long-term records)? Report findings @ -Reviewed outside charts from [facility] from earlier today. Reviewed laboratory studies. Differential Diagnosis (chest pain, altered mental status, abdominal pain women, abdominal pain men, vaginal bleeding, weakness, fever, dyspnea, syncope, headache, dizziness, GI bleed, back pain, seizure, CVA, palpatations, mental health, musculoskeletal)? @ -Differential Dyspnea: Coronary syndrome, arrhythmia, tamponade, asthma, COPD, pulmonary embolism, pneumonia, pneumothorax, pulmonary effusion, anaphylaxis, diabetic ketoacidosis, flailed chest, pulmonary contusion, diaphragmatic rupture, anemia, neuromusc ular, this is not meant to be an all-inclusive list. EKG interpreted by me (3pts min.). @ -As above X-rays interpreted by me (1pt min.). @ -Chest x-ray shows pneumonia versus pulmonary vascular congestion. Patient has not received treatment for both. Postintubation chest x-ray reveals satisfactory placement of the ET tube. CT interpreted by me (1pt min.). @ -None done U/S interpreted by me (1pt. min.). @ -None done What testing was considered but not performed or refused? (CT, X-rays, U/S, labs)? Why? @ -None What meds were considered but not given or refused? Why? @ -None Did you discuss the management of the patient with other professionals (professionals i.e. DrMary, PA, DIVISION OPERATIONS MANAGER, lab, RT, psych nurse, mental health social worker, antique clocks repairer, teacher, [employer] officer, case picker)? Give summary @ -I spoke with the admitting team, ANSON Escobar of [facility] who accepted the admission. Dr. Hernandez of cardiology was present during the V. tach episode. Recommended amiodarone, he was in agreement plan for imaging and admission to ICU. Recommended continuing heparin once confirmed CT brain no evidence of sign ificant bleeding. Patient accepted to the ICU after discussion with Dr. Dhaliwal. Was smoking cessation discussed for >3mins.? @ -No Was critical care preformed (if so, how long)? @ -Yes, 56 minutes Were there social determinants of health that impacted care today? How? (Homelessness, low income, unemployed, alcoholism, drug addiction, transportation, low edu. Level, literacy, decrease access to med. care, fpc, rehab)? @ -Discussed case with ANSON Escobar of [facility] who accepted the admission. Discussed management with Dr. Hernandez who presented bedside who requested amiodarone drip due to the V. tach run as well as admission to the ICU. Was there de-escalation of care discussed even if they declined (Discuss DNR or withdrawal of care, Hospice)? DNR status @ -No What co-morbidities impacted this encounter? (DM, HTN, Smoking, COPD, CAD, Cancer, CVA, ARF, Chemo, Hep., AIDS, mental health diagnosis, sleep apnea, morbid obesity)? @ -CHF, CABG, COPD Was patient admitted / discharged? Hospital course, mention meds given and route, prescriptions, significant lab abnormalities, going to OR and other pertinent info. @ -Based on the patient's presentation and physical exam, presents emergency department complaining of shortness of breath. Was transferred from [facility] on BiPAP for NSTEMI, CHF exacerbation, COPD. We will continue with IV steroids, IV diuresis, as well as IV heparin. Patient currently tachycardic, anxious on his BiPAP machine. Saturating well on BiPAP. Vitals otherwise within acceptable limits. EKG showed A-fib with RVR versus sinus tachycardia.Chest x-ray shows pneumonia versus pulmonary vascular congestion. Clinically does present like CHF exacerb ation with some orthopnea as well as lower extremity edema. We will closely monitor how much fluids patient received. Patient has already received IV antibiotics at the other facility and we will continue with broad-spectrum IV antibiotics. We will continue with IV steroids and breathing treatments. Will continue with heparin. Patient in agreement this plan. Laboratory studies remarkable for leukocytosis of 18.8, mild SARKIS with a BUN of 22 and creatinine of 1.43. Troponin is 1.49. BNP is 3700. Cardiology consulted. Pulmonology consulted. I spoke with the admitting team, ANSON Escobar of [facility] who accepted the admission. After admission, patient was having a bowel movement when he stated he suddenly was feeling more short of breath. He was still on BiPAP at that time. Kept indicating he wanted the BiPAP mask off. Started to become less responsive. Heparin was stopped as he was acting differently. VBG returned and pCO2 on venous blood gas was 69. He is still acidotic with a pH of 7.09. He was moved to the trauma bay 1 with plan for intubation. Just prior to intubation, we lost pulses. ACLS protocol was followed. Patient was intubated by myself. Patient was in PEA throughout. Worked for a total of 8 minutes from 1116 -1124. Received a total of 2 epinephrine, 2 bicarb, 2 calcium amps. ROSC was achieved. Patient was in V. tach and shocked. Patient was in a paced rhythm following. Dr. Hernandez of cardiology was present during the V. tach episode. Recommended amiodarone, he was in agreement plan for imaging and admission to ICU. Recommended continuing heparin once confirmed CT brain no evidence of significant bleeding. Patient accepted to the ICU after discussion with Dr. Attending. Vital signs remained stable following this initial ACLS run. After OG tube was placed, blood pressure on propofol dropped once to 60/40 and then patient became pulseless again. ACLS protocol was once again started at 11:48. At this point, patient had received a total of 150 mg of amiodarone and will receive the additional 300 mg of amiodarone. Rhythm is alternated between PEA and ventricular fibrillation. Patient was defibrillated by both his device as well as externally. Patient received IV push metoprolol. Received an additional 7 epinephrines. 3 additional amps of bicarb, 3 additional amps of calcium. Patient's sugar was within acceptable limits and did not require D50. Worked patient for a total of 25 minutes and time of was called at 1213 after patient remained in PEA with no successful return of spontaneous circulation. Attempts made by nursing staff to contact family members, patient's sister who is in our system. Unable to contact. Patient will be placed in the morgue. [place] was contacted. I notified patient's PCP Dr. Herbert who expressed understanding. Undiagnosed new problem with uncertain prognosis? @ -No Drug Therapy requiring intensive monitoring for toxicity (Heparin, Nitro, Insulin, Cardizem)? @ -Heparin Were any procedures done? @ -Intubation, defibrillation Diagnosis/symptom? @ -Hypoxic respiratory failure likely secondary to pneumonia versus CHF versus COPD, NSTEMI, cardiac arrest, ventricular tachycardia, ventricular fibrillation, Acute, or Chronic, or Acute on Chronic? @ -Acute Uncomplicated (without systemic symptoms) or Complicated (systemic symptoms)? @ -Complicated Side effects of treatment? @ -None Exacerbation, Progression, or Severe Exacerbation] @ -No Poses a threat to life or bodily function? @ -Yes, resulted in - Lab Data Result diagrams: 04/13/24 10:12 04/13/24 10:12 Lab Results 04/13/24 04/13/24 04/13/24 Range/Units 10:12 10:12 10:12 WBC 18.8 H (3.8-10.6) k/uL RBC 4.19 L (4.30-5.90) m/uL Hgb 13.4 (13.0-17.5) gm/dL Hct 41.0 (39.0-53.0) % MCV 97.9 (80.0-100.0) fL MCH 32.0 (25.0-35.0) pg MCHC 32.6 (31.0-37.0) g/dL RDW 12.4 (11.5-15.5) % Plt Count 252 (150-450) k/uL MPV 8.0 Neutrophils % 92 % Lymphocytes % 4 % Monocytes % 3 % Eosinophils % 0 % Basophils % 0 % Neutrophils # 17.2 H (1.3-7.7) k/uL Lymphocytes # 0.8 L (1.0-4.8) k/uL Monocytes # 0.6 (0-1.0) k/uL Eosinophils # 0.0 (0-0.7) k/uL Basophils # 0.0 (0-0.2) k/uL PT 10.9 (10.0-12.5) sec INR 1.0 (<1.2) APTT 46.5 H (22.0-30.0) sec Sodium (137-145) mmol/L Potassium (3.5-5.1) mmol/L Chloride (98-107) mmol/L Carbon Dioxide (22-30) mmol/L Anion Gap mmol/L BUN (9-20) mg/dL Creatinine (0.66-1.25) mg/dL Est GFR (CKD-EPI)AfAm (>60 ml/min/1.73 sqM) Est GFR (CKD-EPI)NonAf (>60 ml/min/1.73 sqM) Glucose (74-99) mg/dL Plasma Lactic Acid Tim (0.7-2.0) mmol/L Calcium (8.4-10.2) mg/dL Magnesium (1.6-2.3) mg/dL Total Bilirubin (0.2-1.3) mg/dL AST (17-59) U/L ALT (4-49) U/L Alkaline Phosphatase (38-126) U/L Troponin I (0.000-0.034) ng/mL NT-Pro-B Natriuret Pep pg/mL Total Protein (6.3-8.2) g/dL Albumin (3.5-5.0) g/dL Urine Color Colorless Urine Appearance Clear (Clear) Urine pH 5.0 (5.0-8.0) Ur Specific [place] 1.007 (1.001-1.035) Urine Protein Negative (Negative) Urine Glucose (UA) Negative (Negative) Urine Ketones Negative (Negative) Urine Blood Negative (Negative) Urine Nitrite Negative (Negative) Urine Bilirubin Negative (Negative) Urine Urobilinogen <2.0 (<2.0) mg/dL Ur Leukocyte Esterase Negative (Negative) Influenza Type A (PCR) (Not Detectd) Influenza Type B (PCR) (Not Detectd) RSV (PCR) (Not Detectd) SARS-CoV-2 (PCR) (Not Detectd) 04/13/24 04/13/24 04/13/24 Range/Units 10:12 10:12 10:12 WBC (3.8-10.6) k/uL RBC (4.30-5.90) m/uL Hgb (13.0-17.5) gm/dL Hct (39.0-53.0) % MCV (80.0-100.0) fL MCH (25.0-35.0) pg MCHC (31.0-37.0) g/dL RDW (11.5-15.5) % Plt Count (150-450) k/uL MPV Neutrophils % % Lymphocytes % % Monocytes % % Eosinophils % % Basophils % % Neutrophils # (1.3-7.7) k/uL Lymphocytes # (1.0-4.8) k/uL Monocytes # (0-1.0) k/uL Eosinophils # (0-0.7) k/uL Basophils # (0-0.2) k/uL PT (10.0-12.5) sec INR (<1.2) APTT (22.0-30.0) sec Sodium 141 (137-145) mmol/L Potassium 4.4 (3.5-5.1) mmol/L Chloride 109 H (98-107) mmol/L Carbon Dioxide 21 L (22-30) mmol/L Anion Gap 11 mmol/L BUN 22 H (9-20) mg/dL Creatinine 1.43 H (0.66-1.25) mg/dL Est GFR (CKD-EPI)AfAm 57 (>60 ml/min/1.73 sqM) Est GFR (CKD-EPI)NonAf 49 (>60 ml/min/1.73 sqM) Glucose 188 H (74-99) mg/dL Plasma Lactic Acid Tim 2.0 (0.7-2.0) mmol/L Calcium 8.6 (8.4-10.2) mg/dL Magnesium 2.0 (1.6-2.3) mg/dL Total Bilirubin 0.6 (0.2-1.3) mg/dL AST 109 H (17-59) U/L ALT 64 H (4-49) U/L Alkaline Phosphatase 101 (38-126) U/L Troponin I 1.490 H* (0.000-0.034) ng/mL NT-Pro-B Natriuret Pep 3780 pg/mL Total Protein 6.5 (6.3-8.2) g/dL Albumin 4.1 (3.5-5.0) g/dL Urine Color Urine Appearance (Clear) Urine pH (5.0-8.0) Ur Specific [place] (1.001-1.035) Urine Protein (Negative) Urine Glucose (UA) (Negative) Urine Ketones (Negative) Urine Blood (Negative) Urine Nitrite (Negative) Urine Bilirubin (Negative) Urine Urobilinogen (<2.0) mg/dL Ur Leukocyte Esterase (Negative) Influenza Type A (PCR) (Not Detectd) Influenza Type B (PCR) (Not Detectd) RSV (PCR) (Not Detectd) SARS-CoV-2 (PCR) (Not Detectd) 04/13/24 Range/Units 10:12 WBC (3.8-10.6) k/uL RBC (4.30-5.90) m/uL Hgb (13.0-17.5) gm/dL Hct (39.0-53.0) % MCV (80.0-100.0) fL MCH (25.0-35.0) pg MCHC (31.0-37.0) g/dL RDW (11.5-15.5) % Plt Count (150-450) k/uL MPV Neutrophils % % Lymphocytes % % Monocytes % % Eosinophils % % Basophils % % Neutrophils # (1.3-7.7) k/uL Lymphocytes # (1.0-4.8) k/uL Monocytes # (0-1.0) k/uL Eosinophils # (0-0.7) k/uL Basophils # (0-0.2) k/uL PT (10.0-12.5) sec INR (<1.2) APTT (22.0-30.0) sec Sodium (137-145) mmol/L Potassium (3.5-5.1) mmol/L Chloride (98-107) mmol/L Carbon Dioxide (22-30) mmol/L Anion Gap mmol/L BUN (9-20) mg/dL Creatinine (0.66-1.25) mg/dL Est GFR (CKD-EPI)AfAm (>60 ml/min/1.73 sqM) Est GFR (CKD-EPI)NonAf (>60 ml/min/1.73 sqM) Glucose (74-99) mg/dL Plasma Lactic Acid Tim (0.7-2.0) mmol/L Calcium (8.4-10.2) mg/dL Magnesium (1.6-2.3) mg/dL Total Bilirubin (0.2-1.3) mg/dL AST (17-59) U/L ALT (4-49) U/L Alkaline Phosphatase (38-126) U/L Troponin I (0.000-0.034) ng/mL NT-Pro-B Natriuret Pep pg/mL Total Protein (6.3-8.2) g/dL Albumin (3.5-5.0) g/dL Urine Color Urine Appearance (Clear) Urine pH (5.0-8.0) Ur Specific [place] (1.001-1.035) Urine Protein (Negative) Urine Glucose (UA) (Negative) Urine Ketones (Negative) Urine Blood (Negative) Urine Nitrite (Negative) Urine Bilirubin (Negative) Urine Urobilinogen (<2.0) mg/dL Ur Leukocyte Esterase (Negative) Influenza Type A (PCR) Not Detected (Not Detectd) Influenza Type B (PCR) Not Detected (Not Detectd) RSV (PCR) Not Detected (Not Detectd) SARS-CoV-2 (PCR) Not Detected (Not Detectd) - EKG Data -: EKG Interpreted by Me EKG Comments: 12-lead Electrocardiogram Interpretation Note EKG was reviewed and interpreted by myself. 12-lead ECG performed at 0946 is interpreted by me as revealing sinus tachycardia versus A-fib with RVR. At a rate of 118 beats per minute. Revloc is normal. OR interval is 186 ms, QRS durations 137 ms, QTc is [address] segment depressions in the lateral precordial leads. No obvious reciprocal changes present.. R wave progression across the precordium was satisfactory. 12-lead Electrocardiogram Interpretation Note EKG was reviewed and interpreted by myself. 12-lead ECG performed at 1128 is interpreted by me as revealing ventricular tachycardia at a rate of 160 beats per minute.. Diffuse ST segment T wave abnormalities. 12-lead Electrocardiogram Interpretation Note EKG was reviewed and interpreted by myself. 12-lead ECG performed at 1130 is interpreted by me as revealing paced rhythm at a rate of 70 beats per minute. Indeterminate axis. OR interval is 177 ms, QRS durations 184 ms, QTc is [address] segment and T wave abnormalities. R wave progression across the precordium was delayed.. Critical Care Time Critical Care Time: Yes Total Critical Care Time: 56 Disposition Clinical Impression: Hypoxic respiratory failure, Pneumonia, CHF (congestive heart failure), COPD (chronic obstructive pulmonary disease), NSTEMI (non-ST elevated myocardial infarction), Cardiac arrest, Ventricular tachycardia, Ventricular fibrillation, Disposition: Time of Disposition: 12:13 Preliminary Cause of : cardiac arrest
[2024-04-13] MEDS ORDERED: HEPARIN SODIUM 1,000 UN/ML (10ML VL) IV PRN (09:53)
[2024-04-13] MEDS: HEPARIN SODIUM 1,000 UN/ML (10ML VL) IV ONE (10:15)
[2024-04-13] MEDS: FUROSEMIDE 10 MG/ML 4 ML VIAL IV SCH (10:19)
[2024-04-13] MEDS: METOPROLOL TARTRATE 5 MG/5 ML VIAL IVP STA (10:22)
[2024-04-13 10:23] LABS: Basophils % (A) 0 %; Eosinophils % (A) 0 %; HGB 13.4 gm/dL (13.0-17.5); Lymphocytes # (A) 0.8 k/uL (1.0-4.8); Lymphocytes % (A) 4 %; MCHC 32.6 g/dL (31.0-37.0); MCV 97.9 fL (80.0-100.0); Monocytes # (A) 0.6 k/uL (0-1.0); Monocytes % (A) 3 %; Neutrophils # (A) 17.2 k/uL (1.3-7.7); Neutrophils % (A) 92 %; Platelet Count 252 k/uL (150-450); RBC 4.19 m/uL (4.30-5.90); RDW 12.4 % (11.5-15.5); WBC 18.8 k/uL (3.8-10.6)
[2024-04-13 10:28] LABS: Appearance,Urine Clear (Clear); Bilirubin,Urine Negative (Negative); Blood,Urine Negative (Negative); Color,Urine Colorless; Glucose,Urine (UA) Negative (Negative); Ketones,Urine Negative (Negative); Leukocyte Esterase,Urine Negative (Negative); Nitrite,Urine Negative (Negative); Protein,Urine Negative (Negative); Specific Gravity,Urine 1.007 (1.001-1.035); Urobilinogen,Urine <2.0 mg/dL (<2.0)
[2024-04-13] MEDS: HEPARIN SOD,PORK IN 0.45% NACL 25,000 UNIT in 0.45% NACL 1 250ML.BAG IV SCH (10:30)
[2024-04-13 10:32] LABS: Partial Thromboplastin Time 46.5 sec (22.0-30.0); Prothrombin Time 10.9 sec (10.0-12.5)
[2024-04-13 10:40] LABS: ALT 64 U/L (4-49); AST 109 U/L (17-59); African American GFR (CKD) 57 (>60 ml/min/1.73 sqM); Albumin 4.1 g/dL (3.5-5.0); Alkaline Phosphatase 101 U/L (38-126); Anion Gap 11 mmol/L; Blood Urea Nitrogen 22 mg/dL (9-20); Calcium 8.6 mg/dL (8.4-10.2); Carbon Dioxide 21 mmol/L (22-30); Chloride 109 mmol/L (98-107); Glucose 188 mg/dL (74-99); Non-African American GFR(CKD) 49 (>60 ml/min/1.73 sqM); Potassium 4.4 mmol/L (3.5-5.1); Sodium 141 mmol/L (137-145); Total Bilirubin 0.6 mg/dL (0.2-1.3); Total Protein 6.5 g/dL (6.3-8.2)
[2024-04-13] MEDS ORDERED: NALOXONE 0.4 MG/ML 1 ML VIAL IV PRN (10:46)
[2024-04-13] MEDS ORDERED: ONDANSETRON 4 MG/2 ML VIAL IVP PRN (10:46)
[2024-04-13] MEDS ORDERED: ACETAMINOPHEN TAB 325 MG TAB PO PRN (10:46)
[2024-04-13 10:48] LABS: NT-Pro-B-Type Natriuretic Pept 3780 pg/mL
[2024-04-13] MEDS: LORazepam 2 MG/ML INJ IV STA (10:57)
[2024-04-13] MEDS: IPRATROPIUM-ALBUTEROL 3 ML NEB INHALATION STA (10:59)
[2024-04-13 11:07] LABS: VBG PH 7.09 (7.31-7.41)
--- NOTE | 2024-04-13 11:16 | XR ---
EXAMINATION TYPE: XR chest 1V portable DATE OF EXAM: 04/13/2024 10:24 AM CLINICAL INDICATION: Male, 73 years old with history of dyspnea; COMPARISON: Chest radiographs from 07/15/2018 TECHNIQUE: XR chest 1V portable Frontal view of the chest. FINDINGS: Lungs/Pleura: There is no evidence of pleural effusion, focal consolidation, or pneumothorax. Pulmonary vascularity: Unremarkable. Heart/mediastinum: Cardiomediastinal silhouette is enlarged. Atherosclerotic calcifications are seen in the aorta. Two lead cardiac conduction device overlying the left hemithorax with lead tips projec ting over the right ventricle and right atrium. Musculoskeletal: No acute osseous pathology. Midline sternotomy wires are noted. Other findings: None Lines/Tubes: IMPRESSION: 1. Right-sided airspace opacities relate for pneumonia versus pulmonary vascular congestion. 2. Cardiomegaly. [facility], , 04/13/2024 11:14 AM
[2024-04-13] MEDS: AMIODARONE 450 MG in DEXTROSE 5% IN WATER 250 ML IV SCH (11:33)
[2024-04-13] MEDS ORDERED: VANCOMYCIN IV PER PHARMACY 1 EACH MISC MISCELLANE PRN (11:34)
--- NOTE | 2024-04-13 11:56 | XR ---
EXAMINATION TYPE: XR chest 1V portable DATE OF EXAM: 04/13/2024 11:51 AM CLINICAL INDICATION: Male, 73 years old with history of Tube placement; COMPARISON: Chest radiographs from 04/13/2024 TECHNIQUE: XR chest 1V portable Frontal view of the chest. FINDINGS: Lungs/Pleura: There is no evidence of pleural effusion, focal consolidation, or pneumothorax. Pulmonary vascularity: Unremarkable. Heart/mediastinum: Cardiomediastinal silhouette is enlarged. Atherosclerotic calcifications are seen in the aorta. Two lead cardiac conduction device overlying the left hemithorax with lead tips projec ting over the right ventricle and right atrium. Musculoskeletal: No acute osseous pathology. Other findings: None Lines/Tubes: Endotracheal tube with distal tip 4.0 cm above the andrzej and directed towards the right fifth. Nasogastric tube with its distal tip and side-port projecting under the diaphragm. IMPRESSION: Endotracheal tube in low position consider retraction up to 3 cm used for optimal placement. [facility], , 04/13/2024 11:54 AM
[2024-04-13 12:23] VITALS: PULSE 116
[2024-04-13 12:45] VITALS: RESP 34
[2024-04-13 12:56] VITALS: BP 145/90
[2024-04-13] MEDS: PIPERACILLIN-TAZOBACTAM 3.375 GM in SODIUM CHLORIDE 0.9% 100 ML IVPB SCH (12:59)
[2024-04-13] MEDS: ROCURONIUM 10 MG/ML (5 ML VIAL) IV STA (12:59)
[2024-04-13] MEDS: ETOMIDATE 2 MG/ML 10 ML VIAL IVP STA (12:59)
[2024-04-13] MEDS: DEXTROSE 5% IN WATER 100 ML with AMIODARONE 150 MG IV ONE (13:00)
[2024-04-13] MEDS: VANCOMYCIN 1,500 MG in SODIUM CHLORIDE 0.9% 500 ML 500 ML IVPB STA (13:00)
[2024-04-13] MEDS: NOREPINEPHRINE 4 MG in SODIUM CHLORIDE 0.9% 250 ML IV ONE (13:25)
[2024-04-13] MEDS: AMIODARONE 360 MG in DEXTROSE 5% IN WATER 200 ML IV ONE (13:28)
--- NOTE | 2024-04-13 13:36 | P.CRDCN ---
History of Present Illness History of present illness: HISTORY OF PRESENT ILLNESS: This is a 73-year-old male with a past medical history significant for coronary artery disease with previous CABG, syncope, ventricular fibrillation, ischemic cardiomyopathy with AICD implantation. Patient follows in the office with Dr. Hernandez. We have been asked to see the patient in consultation for non-STEMI, CHF, and cardiac arrest. Patient examined at the bedside in the emergency room. Patient is currently intubated and unable to provide any information. There is no family present. Case was discussed with the emergency room physician, Dr. Nam. Patient initially presented to [facility] for shortness of breath. Patient was initially placed on BiPAP at [facility]. He was started on IV heparin there as well for elevated troponin. He was given antibiotics as well for concerns of sepsis as his lactic acid was [address] [place] [address] Nam. Apparently in the ER, the patient became more SOB having after a bowel movement and then became unresponsive. He was reportedly in PEA at that time. Rhythm strips are not available at this time. CPR was started and patient regained pulse. He was intubated by the ER physician. When patient was evaluated by Dr. Hernandez, he was intubated and sedated on propofol. During evaluation, damian leyva had two episodes of venticular tachycardia and was defibrillated by his AICD with return to sinus mechanism. Pt given IV amiodarone. DIAGNOSTICS: - EKG reveals sinus tachycardia with IVCD. Repeat EKG reveals AV paced rhythm - Chest xray right sided airspace opacities which relate for pneumonia versus pulmonary vascular congestion. Cardiomegaly. - Laboratory data: WBC 18.8. RBC 13.4. Platelet count 252. Sodium 141. Potassium 4.4. BUN 22. Creatinine 1.43. AST 109. ALT 64. Troponin 1.490. proBNP 3780. - Most recent echocardiogram obtained in March 2022 reveals ejection fraction 40 to 45%, inferior hypokinesis, severe MR - Cardiac catheterization history: March 2022 with stenting of the SVG to diagonal branch and stenting of proximal segment of SVG to diagonal branch - Patient underwent Lexiscan stress test in the office in February 2024 revealing evidence of prior extensive inferior wall myocardial infarction with severe LV dysfunction without any reversible ischemia. REVIEW OF SYSTEMS: At the time of my exam: Unable to obtain thorough review of systems as patient is intubated and sedated PHYSICAL EXAM: VITAL SIGNS: Reviewed. GENERAL: Well-developed in no acute distress-sedated. HEENT: Head is normocephalic. Pupils are equal, round. Sclerae anicteric. Mucous membranes of the mouth are moist. Neck supple. No JVD or thyromegaly LUNGS: Respirations even and unlabored. Lungs diminished with rhonchi noted. HEART: Regular rate and rhythm. S1 and S2 heard. ABDOMEN: Soft. Nondistended. Nontender. EXTREMITIES: Normal range of motion. No clubbing or cyanosis. Peripheral pulses intact. Bilateral lower extremity edema noted. NEUROLOGIC: Sedated on mechanical ventilation ASSESSMENT: Leukocytosis with lactic acidosis of 13 at outside facility concerning for sepsis Acute hypoxic respiratory failure, initially on BiPAP, with subsequent intubation Non-STEMI Cardiopulmonary arrest with PEA initially Ventricular tachycardia, defibrillated x 2 in ER by patients ICD Acute on chronic heart failure with reduced EF Coronary artery disease with previous four-vessel CABG in 1991 and subsequent stenting of SVG to diagonal branch x 2 in March 2022 Ischemic cardiomyopathy, 40 to 45% History of ICD implantation History of paroxysmal atrial fibrillation, unknown if patient was taking anticoagulation on an outpatient basis History of syncope History of inducible ventricular fibrillation, per EP study in 2009 Former nicotine dependence History of noncompliance PLAN: Obtain 2D echo to assess cardiac structure and function Recommend IV Heparin from cardiology standpoint Begin IV amio bolus and drip per protocol Continue telemetry monitoring Patient to be admitted to the ICU Further recommendations pending patient course Nurse practitioner note has been reviewed by physician. Signing provider agrees with the documented findings, assessment, and plan of care documented by CURRICULUM WRITER as a scribe. 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 COVID booster J&J Apr 2021 Last Myocardial Infarction Date:: 1989 History of Any Multi-Drug Resistant Organisms: None Reported Past Surgical History: AICD, Coronary Bypass/CABG, Heart Catheterization With Stent, Hernia Repair, Pacemaker Additional Past Surgical History / Comment(s): CABG 4 vessel 1989, spinal stenosis stimlator/later removed, bilateral cataracts, at least [address] ents, aneursym in carotid artery-repaired. PAIN CLINIC PROCEDURES Past Anesthesia/Blood Transfusion Reactions: No Reported Reaction Date of Last Stent Placement:: 12/17/18 Type of Cardiac Device: Permanent Pacemaker, AICD Device Placement Date:: DECEMBER 2017 [employer] Past Psychological History: No Psychological Hx Reported, Depression Smoking Status: Current every day smoker Past Alcohol Use History: None Reported Past Drug Use History: None Reported - Past Family History Father Family Medical History: Myocardial Infarction (NM) Mother Family Medical History: Myocardial Infarction (NM) Brother(s) Family Medical History: Cancer Sister(s) Additional Family Medical History / Comment(s): CABG 3-vessel Medications and Allergies Home Medications Medication Instructions Recorded Confirmed Type Clopidogrel [Plavix] 75 mg PO DAILY #90 tab 04/24/22 04/13/24 Rx Aspirin EC [Ecotrin Low Dose] 81 mg PO DAILY 04/13/24 04/13/24 History Buprenorphine/Naloxone 8Mg/2Mg 1 film SL BID 04/13/24 04/13/24 History [Suboxone 8-2Mg Film] Docusate [Colace] 200 mg PO DAILY 04/13/24 04/13/24 History Furosemide [Lasix] 20 mg PO DAILY 04/13/24 04/13/24 History Ibuprofen [Motrin] 800 mg PO TID 04/13/24 04/13/24 History Isosorbide Mononitrate ER [Imdur] 30 mg PO DAILY 04/13/24 04/13/24 History Magnesium Oxide [Mag-Ox] 400 mg PO DAILY 04/13/24 04/13/24 History Nitroglycerin Sl Tabs [Nitrostat] 0.4 mg SL Q5M PRN 04/13/24 04/13/24 History Spironolactone [Aldactone] 25 mg PO DAILY 04/13/24 04/13/24 History buPROPion SR [Wellbutrin SR] 150 mg PO BID 04/13/24 04/13/24 History Allergies Allergy/AdvReac Type Severity Reaction Status Date / Time No Known Allergies Allergy Verified 04/13/24 09:46 Physical Exam Vitals: Vital Signs Temp Pulse Resp BP Pulse Ox FiO2 04/13/24 11:10 116 H 04/13/24 10:59 116 H 04/13/24 10:55 90 34 H 145/90 04/13/24 09:54 40 04/13/24 09:46 34 H 04/13/24 09:38 97.3 F L 118 H 24 131/95 99 Intake and Output 04/12/24 04/13/24 04/13/24 22:59 06:59 14:59 Intake Total 8.126 Balance 8.126 Intake: Intake, IV Titration 8.126 Amount Heparin Sod,Pork in 0.45% 6.833 NaCl 25,000 unit In 0.45 % NaCl 1 250ml.bag @ 11. 603 UNITS/KG/HR 10 mls/hr IV .Q24H [facility] Rx#: [id number] propofoL 1,000 mg In 1.293 Empty Bag 1 bag @ 15 MCG/ KG/MIN 7.757 mls/hr IV . [id number] [facility] Rx#:[id number] Other: Weight 86.183 kg Results 04/13/24 10:12 04/13/24 10:12 Cardiac Enzymes 04/13/24 04/13/24 Range/Units 10:12 10:12 AST 109 H (17-59) U/L Troponin I 1.490 H* (0.000-0.034) ng/mL Coagulation 04/13/24 Range/Units 10:12 PT 10.9 (10.0-12.5) sec APTT 46.5 H (22.0-30.0) sec CBC 04/13/24 Range/Units 10:12 WBC 18.8 H (3.8-10.6) k/uL RBC 4.19 L (4.30-5.90) m/uL Hgb 13.4 (13.0-17.5) gm/dL Hct 41.0 (39.0-53.0) % Plt Count 252 (150-450) k/uL Comprehensive Metabolic Panel 04/13/24 Range/Units 10:12 Sodium 141 (137-145) mmol/L Potassium 4.4 (3.5-5.1) mmol/L Chloride 109 H (98-107) mmol/L Carbon Dioxide 21 L (22-30) mmol/L BUN 22 H (9-20) mg/dL Creatinine 1.43 H (0.66-1.25) mg/dL Glucose 188 H (74-99) mg/dL Calcium 8.6 (8.4-10.2) mg/dL AST 109 H (17-59) U/L ALT 64 H (4-49) U/L Alkaline Phosphatase 101 (38-126) U/L Total Protein 6.5 (6.3-8.2) g/dL Albumin 4.1 (3.5-5.0) g/dL Current Medications Generic Name Dose Route Start Last Admin Trade Name Freq PRN Reason Stop Dose Admin Acetaminophen 650 mg 04/13/24 10:46 Acetaminophen Tab 325 Mg Tab PO Q6HR PRN Mild Pain or Fever > 100.5 Albuterol/Ipratropium 3 ml 04/13/24 12:00 Ipratropium-Albuterol 3 Ml Neb INHALATION RT-Q4H [facility] Furosemide 40 mg 04/13/24 10:00 04/13/24 10:19 Furosemide 10 Mg/Ml 4 Ml Vial IV 40 mg Q8H [facility] Administration Heparin Sodium (Porcine) 0 unit 04/13/24 09:53 Heparin Sodium 1,000 Un/Ml (10ml Vl) IV PER PROTOCOL PRN Low PTT Protocol Heparin Sodium/Sodium Chloride 250 mls @ 10 mls/hr 04/13/24 10:00 04/13/24 11:11 25,000 unit/ Sodium Chloride IV 0 units/kg/hr .Q24H [facility] 0 mls/hr Titration Protocol 11.603 UNITS/KG/HR Propofol 1,000 mg/ IV Solution 100 mls @ 7.757 mls/hr 04/13/24 11:15 04/13/24 11:38 IV 0 mcg/kg/min .[id number] [facility] 0 mls/hr Titration Protocol 15 MCG/KG/MIN Amiodarone HCl 360 mg/ 200 mls @ 33.333 mls/hr 04/13/24 11:29 Dextrose/Water IV 04/13/24 17:28 .Q6H ONE Protocol 1 MG/MIN Amiodarone HCl 450 mg/ 250 mls @ 16.667 mls/hr 04/13/24 17:30 04/13/24 11:33 Dextrose/Water IV 04/14/24 11:29 7.5 mg/min .Q15H [facility] 250 mls/hr Administration Protocol 0.5 MG/MIN Piperacillin Sod/Tazobactam 100 mls @ 25 mls/hr 04/13/24 12:00 04/13/24 12:59 Sod 3.375 gm/ Sodium Chloride IVPB Not Given Q8H [facility] Protocol Vancomycin HCl 1,500 mg/ 500 mls @ 167 mls/hr 04/13/24 11:39 04/13/24 13:00 Sodium Chloride IVPB 04/13/24 14:38 Not Given ONCE STA Vancomycin HCl 1,500 mg/ 500 mls @ 167 mls/hr 04/14/24 12:00 Sodium Chloride IVPB Q24H [facility] Norepinephrine Bitartrate 4 mg 254 mls @ 9.851 mls/hr 04/13/24 11:53 / Sodium Chloride IV 04/14/24 11:52 .Q24H ONE Protocol 0.03 MCG/KG/MIN Methylprednisolone Sodium Succinate 40 mg 04/13/24 16:00 Methylprednisolone Sod Succi 40 Mg/Ml 1 Ml Vial IV Q8HR [facility] Naloxone HCl 0.2 mg 04/13/24 10:46 Naloxone 0.4 Mg/Ml 1 Ml Vial IV Q2M PRN Opioid Reversal Ondansetron HCl 4 mg 04/13/24 10:46 Ondansetron 4 Mg/2 Ml Vial IVP Q8HR PRN Nausea And Vomiting Intake and Output 04/12/24 04/13/24 04/13/24 22:59 06:59 14:59 Intake Total 8.126 Balance 8.126 Intake: Intake, IV Titration 8.126 Amount Heparin Sod,Pork in 0.45% 6.833 NaCl 25,000 unit In 0.45 % NaCl 1 250ml.bag @ 11. 603 UNITS/KG/HR 10 mls/hr IV .Q24H [facility] Rx#: [id number] propofoL 1,000 mg In 1.293 Empty Bag 1 bag @ 15 MCG/ KG/MIN 7.757 mls/hr IV . [id number] [facility] Rx#:[id number] Other: Weight 86.183 kg Patient Weight 04/14/24 06:59 Weight 86.183 kg 04/13/24 10:12 04/13/24 10:12
--- NOTE | 2024-04-13 14:58 | P.HPIM ---
History of Present Illness H&P Date: 04/13/24 This is a 73-year-old male who presented to the emergency department via EMS and sent from [facility] for significant shortness of breath with CHF exacerbation. Patient was placed on BiPAP and sent here and continuing to have shortness of breath continued on BiPAP also noted to have significant white count and elevated troponins with concerns of NSTEMI and patient was placed on IV heparin. Cardiology and pulmonary consulted for CHF with hypoxia and respiratory failure along with COPD. Virology testing including COVID, RSV, influenza were negative and patient initially was being admitted to [facility]. Per medical record patient has significant past medical history of coronary artery disease, hyperlipidemia, hypertension, previous myocardial infarction, chronic back pain with degenerative disc disease, previous CABG with stenting and AICD with continued ongoing nicotine dependence. Patient per nursing staff patient was attempting to have a bowel movement became more short of breath with worsening respiratory distress and becoming more unresponsive apparently had cardiac arrest in the ER and a code was called. CPR was started including delivering a shock with 2 rounds of epinephrine and intubated by the ER physician Dr. Nam. PEA throughout and also ROSC was obtained and was in V. tach and shocked. Patient was then being considered admission for ICU and apparently became hypotensive and lost a pulse again reinitiating ACLS and more than a total of 25 minutes working on the patient and time of was called at 1213 after the patient remained in PEA. Patient follows with Jaswinder Herbert in the outpatient setting and per ED documentation, he was contacted. Multiple attempts at attempting to contact family with multiple disconnected numbers per ER nurses and did contact [facility] along with [employer] for further investigation to attempt to find his family. Again time of was pronounced at 1213 on 04/13/2024. Please refer to ER documentation for further HPI. Assessment: Shortness of breath with acute hypoxic respiratory failure likely secondary to CHF exacerbation, initially placed on BiPAP and requiring mechanical ventilation Leukocytosis, possibly concerns for pneumonia with sepsis, present on admission Cardiac arrest Elevated troponins, NSTEMI History of COPD History of CABG with extensive coronary artery disease History of permanent pacemaker with AICD Continued ongoing nicotine dependence History of hyperlipidemia Hypertension history Chronic back pain with degenerative disc disease The impression and plan of care has been dictated by Luz Lamb, Nurse Practitioner as directed. Dr. Magan MD I have performed a history and examination and MDM of this patient, discussed the same with the dictator, and agree with the dictator's assessment and plan as written ,documented as a scribe. Based on total visit time, I have performed more than 50% of the visit. 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 COVID booster J&J Apr 2021 Last Myocardial Infarction Date:: 1989 History of Any Multi-Drug Resistant Organisms: None Reported Past Surgical History: AICD, Coronary Bypass/CABG, Heart Catheterization With Stent, Hernia Repair, Pacemaker Additional Past Surgical History / Comment(s): CABG 4 vessel 1989, spinal stenosis stimlator/later removed, bilateral cataracts, at least 8 cardiac stents, aneursym in carotid artery-repaired. PAIN CLINIC PROCEDURES Past Anesthesia/Blood Transfusion Reactions: No Reported Reaction Date of Last Stent Placement:: 12/17/18 Type of Cardiac Device: Permanent Pacemaker, AICD Device Placement Date:: DECEMBER 2017 [employer] Past Psychological History: No Psychological Hx Reported, Depression Smoking Status: Current every day smoker Past Alcohol Use History: None Reported Past Drug Use History: None Reported - Past Family History Father Family Medical History: Myocardial Infarction (ND) Mother Family Medical History: Myocardial Infarction (ND) Brother(s) Family Medical History: Cancer Sister(s) Additional Family Medical History / Comment(s): CABG 3-vessel Medications and Allergies Home Medications Medication Instructions Recorded Confirmed Type Clopidogrel [Plavix] 75 mg PO DAILY #90 tab 04/24/22 04/13/24 Rx Aspirin EC [Ecotrin Low Dose] 81 mg PO DAILY 04/13/24 04/13/24 History Buprenorphine/Naloxone 8Mg/2Mg 1 film SL BID 04/13/24 04/13/24 History [Suboxone 8-2Mg Film] Docusate [Colace] 200 mg PO DAILY 04/13/24 04/13/24 History Furosemide [Lasix] 20 mg PO DAILY 04/13/24 04/13/24 History Ibuprofen [Motrin] 800 mg PO TID 04/13/24 04/13/24 History Isosorbide Mononitrate ER [Imdur] 30 mg PO DAILY 04/13/24 04/13/24 History Magnesium Oxide [Mag-Ox] 400 mg PO DAILY 04/13/24 04/13/24 History Nitroglycerin Sl Tabs [Nitrostat] 0.4 mg SL Q5M PRN 04/13/24 04/13/24 History Spironolactone [Aldactone] 25 mg PO DAILY 04/13/24 04/13/24 History buPROPion SR [Wellbutrin SR] 150 mg PO BID 04/13/24 04/13/24 History Allergies Allergy/AdvReac Type Severity Reaction Status Date / Time No Known Allergies Allergy Verified 04/13/24 09:46 Physical Exam Vitals: Vital Signs Temp Pulse Resp BP Pulse Ox FiO2 04/13/24 11:10 116 H 04/13/24 10:59 116 H 04/13/24 10:55 90 34 H 145/90 04/13/24 09:54 40 04/13/24 09:46 34 H 04/13/24 09:38 97.3 F L 118 H 24 131/95 99 Intake and Output 04/12/24 04/13/24 04/13/24 22:59 06:59 14:59 Intake Total 8.126 Balance 8.126 Intake: Intake, IV Titration 8.126 Amount Heparin Sod,Pork in 0.45% 6.833 NaCl 25,000 unit In 0.45 % NaCl 1 250ml.bag @ 11. 603 UNITS/KG/HR 10 mls/hr IV .Q24H [facility] Rx#: [id number] propofoL 1,000 mg In 1.293 Empty Bag 1 bag @ 15 MCG/ KG/MIN 7.757 mls/hr IV . [id number] [facility] Rx#:[id number] Other: Weight 86.183 kg Results CBC & Chem 7: 04/13/24 10:12 04/13/24 10:12 Labs: Abnormal Lab Results - Last 24 Hours (Table) 04/13/24 04/13/24 04/13/24 Range/Units 10:12 10:12 10:12 WBC 18.8 H (3.8-10.6) k/uL RBC 4.19 L (4.30-5.90) m/uL Neutrophils # 17.2 H (1.3-7.7) k/uL Lymphocytes # 0.8 L (1.0-4.8) k/uL APTT 46.5 H (22.0-30.0) sec VBG pH (7.31-7.41) VBG pCO2 (37-51) mmHg VBG HCO3 (24-28) mmol/L Chloride 109 H (98-107) mmol/L Carbon Dioxide 21 L (22-30) mmol/L BUN 22 H (9-20) mg/dL Creatinine 1.43 H (0.66-1.25) mg/dL Glucose 188 H (74-99) mg/dL AST 109 H (17-59) U/L ALT 64 H (4-49) U/L Troponin I (0.000-0.034) ng/mL 04/13/24 04/13/24 Range/Units 10:12 10:53 WBC (3.8-10.6) k/uL RBC (4.30-5.90) m/uL Neutrophils # (1.3-7.7) k/uL Lymphocytes # (1.0-4.8) k/uL APTT (22.0-30.0) sec VBG pH 7.09 L* (7.31-7.41) VBG pCO2 69 H (37-51) mmHg VBG HCO3 21 L (24-28) mmol/L Chloride (98-107) mmol/L Carbon Dioxide (22-30) mmol/L BUN (9-20) mg/dL Creatinine (0.66-1.25) mg/dL Glucose (74-99) mg/dL AST (17-59) U/L ALT (4-49) U/L Troponin I 1.490 H* (0.000-0.034) ng/mL
--- NOTE | 2024-04-13 15:01 | P.DS ---
Providers Date of admission: 04/13/24 10:47 Expected date of discharge: 04/13/24 Attending physician: Suresh Carrero Consults: 04/13/24 10:06 Consult Physician Routine Consulting Provider: Hortencia Dhaliwal Consult Reason/Comments: hypoxic resp failure intubated, cardiac arrest Do you want consulting provider notified?: Yes Consult Physician Routine Consulting Provider: [facility] Consult Reason/Comments: NSTEMI, chf, cardiac arrest Do you want consulting provider notified?: Yes Primary care physician: Jaswinder Herbert Hospital Course: Preliminary cause of Congestive heart failure exacerbation with respiratory failure Discharge disposition Patient has . According to nursing documentation, patient was pronounced at 1213 on 04/13/[address] Nam. Total time taken greater than 35 minutes. Hospital course This is a 73-year-old male who presented to the emergency department via EMS and sent from [facility] for significant shortness of breath with CHF exacerbation. Patient was placed on BiPAP and sent here and continuing to have shortness of breath continued on BiPAP also noted to have significant white coun t and elevated troponins with concerns of NSTEMI and patient was placed on IV heparin. Cardiology and pulmonary consulted for CHF with hypoxia and respiratory failure along with COPD. Virology testing including COVID, RSV, influenza were negative and patient initially was being admitted to [facility]. Per medical record patient has significant past medical history of coronary artery disease, hyperlipidemia, hypertension, previous myocardial infarction, chronic back pain with degenerative disc disease, previous CABG with stenting and AICD with continued ongoing nicotine dependence. Patient per nursing staff patient was attempting to have a bowel movement became more short of breath with worsening respiratory distress and becoming more unresponsive apparently had cardiac arrest in the ER and a code was called. CPR was started including delivering a shock with 2 rounds of epinephrine and intubated by the ER physician Dr. Nam. PEA throughout and also ROSC was obtained and was in V. tach and shocked. Patient was then being considered admission for ICU and apparently became hypotensive and lost a pulse again reinitiating ACLS and more than a total of 25 minutes working on the patient and time of was called at 1213 after the patient remained in PEA. Patient follows with Jaswinder Herbert in the outpatient setting and per ED documentation, he was contacted. Multiple attempts at attempting to contact family with multiple disconnected numbers per ER nurses and did contact [facility] along with [employer] for further investigation to attempt to find his family. Again time of was pronounced at 1213 on 04/13/2024. Please refer to ER documentation for further HPI. Assessment: Shortness of breath with acute hypoxic respiratory failure likely secondary to CHF exacerbation, initially placed on BiPAP and requiring mechanical ventilation Leukocytosis, possibly concerns for pneumonia with sepsis, present on admission Cardiac arrest Elevated troponins, NSTEMI History of COPD History of CABG with extensive coronary artery disease History of permanent pacemaker with AICD Continued ongoing nicotine dependence History of hyperlipidemia Hypertension history Chronic back pain with degenerative disc disease The impression and plan of care has been dictated by Luz Lamb, Nurse Practitioner as directed. Dr. Magan MD I have performed a history and examination and MDM of this patient, discussed the same with the dictator, and agree with the dictator's assessment and plan as written ,documented as a scribe. Based on total visit time, I have performed more than 50% of the visit. Patient Condition at Discharge: Poor Plan - Discharge Summary New Discharge Prescriptions: No Action Nitroglycerin Sl Tabs [Nitrostat] 0.4 mg SL Q5M PRN PRN Reason: Chest Pain Isosorbide Mononitrate ER [Imdur] 30 mg PO DAILY Aspirin EC [Ecotrin Low Dose] 81 mg PO DAILY Magnesium Oxide [Mag-Ox] 400 mg PO DAILY Clopidogrel [Plavix] 75 mg PO DAILY #90 tab Ibuprofen [Motrin] 800 mg PO TID Spironolactone [Aldactone] 25 mg PO DAILY Docusate [Colace] 200 mg PO DAILY buPROPion SR [Wellbutrin SR] 150 mg PO BID Furosemide [Lasix] 20 mg PO DAILY Buprenorphine/Naloxone 8Mg/2Mg [Suboxone 8-2Mg Film] 1 film SL BID Discharge Medication List Clopidogrel [Plavix] 75 mg PO DAILY #90 tab 04/24/22 [Rx] Aspirin EC [Ecotrin Low Dose] 81 mg PO DAILY 04/13/24 [History] Buprenorphine/Naloxone 8Mg/2Mg [Suboxone 8-2Mg Film] 1 film SL BID 04/13/24 [History] Docusate [Colace] 200 mg PO DAILY 04/13/24 [History] Furosemide [Lasix] 20 mg PO DAILY 04/13/24 [History] Ibuprofen [Motrin] 800 mg PO TID 04/13/24 [History] Isosorbide Mononitrate ER [Imdur] 30 mg PO DAILY 04/13/24 [History] Magnesium Oxide [Mag-Ox] 400 mg PO DAILY 04/13/24 [History] Nitroglycerin Sl Tabs [Nitrostat] 0.4 mg SL Q5M PRN 04/13/24 [History] Spironolactone [Aldactone] 25 mg PO DAILY 04/13/24 [History] buPROPion SR [Wellbutrin SR] 150 mg PO BID 04/13/24 [History] Follow up Appointment(s)/Referral(s): Jaswinder Herbert MD [Primary Care Provider] - 1-2 days Discharge Disposition: - Preliminary Cause of Preliminary Cause of : Congestive heart failure exacerbation with respiratory failure
[2024-04-13] MEDS: IPRATROPIUM-ALBUTEROL 3 ML NEB INHALATION SCH (15:53)
[2024-04-13] MEDS ORDERED: methylPREDNISolone SOD SUCCI 40 MG/ML 1 ML VIAL IV SCH (16:00)
[2024-04-14] MEDS ORDERED: VANCOMYCIN 1,500 MG in SODIUM CHLORIDE 0.9% 500 ML 500 ML IVPB SCH (12:00)
== END 2024-04-13 12:13 | disposition expired | DRG 208 ==
LOC: EC 09:34 → 3SCARD 10:47 → 2SICU 11:53
PROVIDERS: ADMIT Hospitalist; ATTEND Hospitalist
PROC: 5A1935Z Respiratory Ventilation, Less than 24 Consecutive Hours (ICD-10-PCS; principal; 2024-04-13)
PROC: 5A09357 Assistance with Respiratory Ventilation, Less than 24 Consecutive Hours, Continuous Positive Airway Pressure (ICD-10-PCS; 2024-04-13)
PROC: 0BH17EZ Insertion of Endotracheal Airway into Trachea, Via Natural or Artificial Opening (ICD-10-PCS; 2024-04-13)
PROC: 5A12012 Performance of Cardiac Output, Single, Manual (ICD-10-PCS; 2024-04-13)
DX: J96.01 Acute respiratory failure with hypoxia (principal); A41.9 Sepsis, unspecified organism; I21.4 Non-ST elevation (NSTEMI) myocardial infarction; I50.23 Acute on chronic systolic (congestive) heart failure; J18.9 Pneumonia, unspecified organism; E87.20 Acidosis, unspecified; I47.20 Ventricular tachycardia, unspecified; J44.0 Chronic obstructive pulmonary disease with (acute) lower respiratory infection; I11.0 Hypertensive heart disease with heart failure; E78.5 Hyperlipidemia, unspecified; G89.29 Other chronic pain; I25.10 Atherosclerotic heart disease of native coronary artery without angina pectoris; I25.2 Old myocardial infarction; I46.2 Cardiac arrest due to underlying cardiac condition; I25.5 Ischemic cardiomyopathy; I48.0 Paroxysmal atrial fibrillation; I49.01 Ventricular fibrillation; Z79.02 Long term (current) use of antithrombotics/antiplatelets; Z79.82 Long term (current) use of aspirin; Z79.899 Other long term (current) drug therapy; Z82.49 Family history of ischemic heart disease and other diseases of the circulatory system; Z91.199 Patient's noncompliance with other medical treatment and regimen due to unspecified reason; Z95.1 Presence of aortocoronary bypass graft; Z95.5 Presence of coronary angioplasty implant and graft; Z95.810 Presence of automatic (implantable) cardiac defibrillator; Z98.42 Cataract extraction status, left eye; Z98.41 Cataract extraction status, right eye; Z87.891 Personal history of nicotine dependence; Z79.01 Long term (current) use of anticoagulants
CPT/HCPCS: 31500; 36415; 71045; 80053; 81003; 82803; 83605; 83735; 83880; 84484; 85025; 85610; 85730; 87040; 87636; 92950; 93005; 94640; 94660; 96374; 96375; 99291